=== PATIENT | male | born 1950 | race American Indian/Alaskan Native ===

== ENCOUNTER 2016-08-31 11:35 | Emergency (ER) | payer SELFPAY ==
--- NOTE | 2016-08-31 16:53 | Emergency Department Report ---
- General Chief Complaint: Laceration/Recheck/Suture Stated Complaint: WIRE OUT OF BACK Time Seen by Provider: 08/31/16 16:27 Source: patient Mode of arrival: Ambulatory Limitations: No Limitations - History of Present Illness Initial Comments: Patient presents today after a thoracotomy that was done at [facility] on 06/30/2016. He states he needs to get his sy removed. His discharge paperwork from that visit states that he needs to follow-up with Dr. SORTO in one week and on 07/11/16. Patient admits that he has not followed up with anyone. He states he does not have a PCP. He is noted to have an elevated blood pressure of 182/112 and on Lopressor 25 twice a day. He states he has not been taking it as he ran out of the medication. He denies chest pain, shortness of breath, dizziness, nausea, fever. Associated Symptoms: none - Related Data Previous Rx's Medication Instructions Recorded Last Taken Type Benzonatate [Tessalon Perles] 100 mg PO Q8H #15 capsule 07/05/16 Unknown Rx Famotidine [Pepcid] 20 mg PO BID #60 tablet 07/05/16 Unknown Rx Metoprolol [Lopressor TAB] 25 mg PO BID #60 tablet 07/05/16 Unknown Rx oxyCODONE /ACETAMINOPHEN [Percocet 1 tab PO Q6H PRN #20 tablet 07/05/16 Unknown Rx 5/325 mg] Metoprolol [Lopressor TAB] 25 mg PO BID #30 tablet 08/31/16 Unknown Rx Allergies Allergy/AdvReac Type Severity Reaction Status Date / Time No Known Allergies Allergy Verified 08/31/16 12:25 ED Review of Systems ROS: Stated complaint: WIRE OUT OF BACK Other details as noted in HPI Respiratory: denies: cough, shortness of breath, wheezing Cardiovascular: denies: chest pain, palpitations Gastrointestinal: denies: abdominal pain, nausea, diarrhea Musculoskeletal: denies: back pain, joint swelling, arthralgia Skin: as per HPI Neurological: denies: headache, weakness, paresthesias ED Past Medical Hx - Past Medical History Hx Hypertension: No (possible undiagnosed, patient on HTN med in hospital) Hx Congestive Heart Failure: No Hx Diabetes: No Hx Sickle Cell Disease: No Hx Asthma: No Hx COPD: No Hx HIV: No - Social History Smoking Status: Never Smoker Substance Use Type: Alcohol - Medications Home Medications: Home Medications Medication Instructions Recorded Confirmed Last Taken Type Benzonatate [Tessalon Perles] 100 mg PO Q8H #15 capsule 07/05/16 Unknown Rx Famotidine [Pepcid] 20 mg PO BID #60 tablet 07/05/16 Unknown Rx Metoprolol [Lopressor TAB] 25 mg PO BID #60 tablet 07/05/16 Unknown Rx oxyCODONE /ACETAMINOPHEN [Percocet 1 tab PO Q6H PRN #20 tablet 07/05/16 Unknown Rx 5/325 mg] Metoprolol [Lopressor TAB] 25 mg PO BID #30 tablet 08/31/16 Unknown Rx ED Physical Exam - General Limitations: No Limitations General appearance: alert, in no apparent distress - Eye Eye exam: Present: normal appearance - Respiratory Respiratory exam: Present: normal lung sounds bilaterally. Absent: respiratory distress - Cardiovascular Cardiovascular Exam: Present: regular rate, normal rhythm. Absent: systolic murmur, diastolic murmur, rubs, gallop - Back Exam Back exam: Present: other (left thoracic sy from anterior to posterior, there is no redness, swelling, the wound appears to be healing well.) - Neurological Exam Neurological exam: Present: alert, oriented X3 - Psychiatric Psychiatric exam: Present: normal affect, normal mood - Skin Skin exam: Present: warm, dry, intact, normal color. Absent: rash ED Course Vital Signs 08/31/16 12:18 Temperature 97.7 F Pulse Rate 101 H Respiratory 17 Rate Blood Pressure 182/112 O2 Sat by Pulse 99 Oximetry ED Medical Decision Making - Medical Decision Making Patient presents after a left thoracotomy, he presents to have sy removed. I have spoken to Dr. Hicks about this patient and he states to have the patient follow-up with Dr. Hardin, the surgeon due to him being postop 2 months. I will also refill his metoprolol for 2 weeks until he can get into see a primary care physician. - Differential Diagnosis thoracotomy, wound infection Critical Care Time: No Critical care attestation.: If time is entered above; I have spent that time in minutes in the direct care of this critically ill patient, excluding procedure time. ED Disposition Clinical Impression: History of thoracotomy, Hypertension Disposition: DISCHARGED TO HOME OR SELFCARE Is pt being admited?: No Does the pt Need Aspirin: No Condition: Stable Instructions: Staple Care (ED), Hypertension (ED) Additional Instructions: You must follow-up with Dr. SORTO your wool fleece sorter and Dr. Hardin your surgeon immediately. Dr. SORTO's number is [phone] Dr. Hardin's number is [phone] Prescriptions: Metoprolol [Lopressor TAB] 25 mg PO BID #30 tablet Referrals: PRIMARY CAREMD [Primary Care Provider] - 3-5 Days SANJAY HARDIN MD [Staff Physician] - 3-5 Days [facility] [Outside] - 3-5 Days Time of Disposition: 17:00
[2016-08-31] MEDS ORDERED: LOPRESSOR PO ONE (17:00)
[2016-08-31 18:06] VITALS: BP 190/122
[2016-08-31] MEDS ORDERED: CATAPRES PO ONE (18:32)
[2016-08-31] MEDS ORDERED: NORMODYNE IV ONE (19:29)
--- NOTE | 2016-08-31 19:47 | Emergency Department Report ---
Blank Doc - Documentation Documentation: Spoke with Dr. Hicks about patient's elevated blood pressure, he states to give labetalol 20 IV. I went in the exam room to discuss this with the patient and the patient states he has to leave that he has been here too long. He states he will sign the AMA form. I advised patient that elevated blood pressure can lead to stroke, heart attack, end stage organ failure. He states he understands and has decided to leave AMA anyway.
--- NOTE | 2016-08-31 20:14 | Emergency Department Report ---
Blank Doc - Documentation Documentation: Spoke with Dr. Hicks about this patient and his blood pressure being elevated. Dr. Hicks states to give him his prescription for metoprolol 25 mg twice a day even though he is leaving AMA. I discussed with the patient to follow-up in the ED if he gets any chest pain, dizziness, shortness of breath, nausea, vomiting, facial droop.
== END 2016-08-31 19:45 | disposition left against medical advice (07) ==
LOC: ED 11:35
DX: I10 Essential (primary) hypertension (principal); Z98.890 Other specified postprocedural states
CPT/HCPCS: 99282

== ENCOUNTER 2016-10-10 14:15 | Inpatient (IN) | payer OTHER ==
--- NOTE | 2016-10-10 14:54 | Emergency Department Report ---
Chief Complaint: High BP Stated Complaint: HBP Time Seen by Provider: 10/10/16 14:44 - HPI History of Present Illness: 66-year-old male sent to the ER by [facility] due to elevated heart rate and blood pressure. Positive for history of lung cancer. Patient admits to alcohol intake last night. Denies nausea, vomiting, chest pain, shortness of breath, abdominal pain. - ROS Review of Systems: Per HPI - Exam Vital Signs: Vital Signs 10/10/16 10/10/16 14:33 14:47 Temperature 98.4 F Pulse Rate 150 H 137 H Respiratory 18 Rate Blood Pressure 151/100 O2 Sat by Pulse 100 Oximetry Physical Exam: General: 66-year-old male in no acute distress. Well-developed, well-nourished. CV: Tachycardic. Regular rhythm. Lungs: Clear to auscultation bilaterally. MSE screening note: Focused history and physical exam performed. Due to findings the following was ordered: ED Disposition for MSE Condition: Stable
[2016-10-10 15:43] LABS: Basophils % (Auto) 0.4 % (0.0-1.8); Hematocrit 39.8 % (35.5-45.6); Hemoglobin 12.9 gm/dl (11.8-15.2); Mean Corpuscular HGB Conc 32 % (32-34); Mean Corpuscular Volume 79 fl (84-94); Platelet Count 335 K/mm3 (140-440); Red Blood Count 5.02 M/mm3 (3.65-5.03); Red Cell Distribution Width 17.1 % (13.2-15.2)
[2016-10-10 15:45] LABS: Mean Corpuscular Hemoglobin 26 pg (28-32)
[2016-10-10 15:50] LABS: Anion Gap 22 mmol/L; Blood Urea Nitrogen 10 mg/dL (9-20); Calcium 8.9 mg/dL (8.4-10.2); Carbon Dioxide 24 mmol/L (22-30); Chloride 98.1 mmol/L (98-107); Glucose 131 mg/dL (75-100); Potassium 3.5 mmol/L (3.6-5.0); Sodium 141 mmol/L (137-145)
[2016-10-10 15:52] LABS: Creatine Kinase MB 3.6 ng/mL (0.0-4.0)
[2016-10-10 15:54] LABS: Creatine Kinase 82 units/L (55-170)
[2016-10-10] MEDS ORDERED: CARDIZEM ONE (16:28)
[2016-10-10 17:44] LABS: INR 0.98 (0.87-1.13)
[2016-10-10 17:45] LABS: Partial Thromboplastin Time 25.7 Sec. (24.2-36.6)
[2016-10-10 17:57] LABS: Alanine Aminotransferase 5 units/L (7-56); Albumin 3.8 g/dL (3.9-5); Alkaline Phosphatase 106 units/L (35-129); Bilirubin,Total 0.4 mg/dL (0.1-1.2); Magnesium 1.6 mg/dL (1.7-2.3); Total Protein 7.5 g/dL (6.3-8.2)
[2016-10-10 17:58] LABS: Bilirubin,Direct < 0.2 mg/dL (0-0.2); Bilirubin,Indirect 0.2 mg/dL
[2016-10-10] MEDS ORDERED: LEVAQUIN 750MG/150ML 750 MG/150 ML BAG IV ONE (18:30)
--- NOTE | 2016-10-10 18:56 | Admit Criteria Form ---
Admission Criteria Documentation: PULMONARY DISEASE GRG Clinical Indications for Admission to Inpatient Care ( Place 'X' for any and all applicable criteria): Hospital admission is needed for appropriate care of the patient because of ANY ONE of the following(1): [ ]I. Impending or actual respiratory arrest ( Use Respiratory Failure Criteria for severe respiratory disease and long-term mechanical ventilation patients) (4) [ ]II. Severe airflow or ventilation abnormalities (not responsive to emergency and observation care treatment as appropriate) as indicated by ANY ONE of the following(5)(6)(7)(8) : [ ]a) PCO2 > 42 mm Hg (5.6 kPa) and pH < 7.35 (new) [ ]b) Documented PCO2 increase > 5 mm Hg (0.7 kPa) from disease baseline [ ]c) Airflow measurements[A] < 60% of previous best or predicted ( e.g., PEF <300 L/minute) despite intensive emergent treatment[B] [ ]d) Required respiratory treatments that are performable only in acute inpatient setting [ ]III. Severe respiratory findings (not responsive to emergency and observation care treatment as appropriate) including ANY ONE of the following(5)(8)(9): [ ]a) Respiratory distress as indicated by ALL of the following(5)(10): [ ]i) Patient with ANY ONE of the following: [ ]1) Dyspnea (difficulty breathing) [ ]2) Abnormal breathing pattern (eg, chest retractions) [ ]3) Tachypnea [ ]4) Other evidence of difficulty breathing [ ]ii) Evidence of respiratory compromise indicated by ANY ONE of the following: [ ]1) Hypoxemia [ ]2) Altered mental status [ ]3) Other evidence of respiratory compromise (eg, pulmonary edema on chest x-ray) [ ]b) Stridor [ ]c) Gross hemoptysis(11) [ ]d) Acute cyanosis [ X]IV. High-risk pulmonary infection as indicated by ANY ONE of the following (19)(20)(21)(22): [ ]a) Temperature less than 95 degrees F(35 degrees C) or greater than 103.1 degrees F(39.5 degrees C) [ ]b) Hemodynamic instability that remains after emergency or observation level care (as appropriate) [ ]c) Immunocompromised patient (eg, AIDS, post transplant, neutropenic) [ ]d) History of severe COPD [ ]e) History of severely symptomatic congestive heart failure [ ]f) Other high-risk comorbidity (eg, poorly controlled diabetes, cirrhosis, chronic renal insufficiency) [ ]g) Hypoxemia (new) [ X]h) Outpatient, observation, or recovery facility therapy has failed, is not appropriate, or is not feasible [ ]V. Severe atelectasis or lung collapse(15)(16) [ ]. Tuberculosis requiring inpatient treatment as indicated by ANY ONE of the following(17)(18): [ ]a) New positive acid-fast bacilli sputum smear [ ]b) Positive acid-fast bacilli smear (under current treatment), with ANY ONE of the following: [ ]i) Unexposed household contacts [ ]ii) Infants or immunosuppressed household contacts [ ]iii) Patient unable or unwilling to avoid exposing others [ ]iv) Severe immunocompromised patient (eg, AIDS, post transplant, neutropenic) [ ]VII. Empyema or lung abscess(13)(14) [ ]VIII. Severe pulmonary arterial hypertension or pulmonary vascular disease requiring inpatient care indicated by ANY ONE of the following(24)(25): [ ]a) Initiation or change of vasodilators (IV, subcutaneous, or inhaled) or other vasoactive medications needed [ ]b) IV anticoagulation needed (eg, immediate anticoagulation necessary, alternatives not appropriate) [ ]c) Arterial or pulmonary artery catheter monitoring needed due to infusion or other treatment [ ]IX. Chronic lung disease with severe deterioration (not responsive to emergency and observation care treatment as appropriate) as indicated by ANY ONE of the following (6)(12): [ ]a) SaO2 5% below baseline in patient with chronic hypoxemia [ ]b) New requirement for supplemental oxygen to keep SaO2 at baseline or acceptable level [ ]c) Required supplemental oxygen performable only in acute inpatient setting [ ]d) Severe airflow or ventilation abnormalities [ ]e) Rapid rate of exacerbation onset [ ]f) Previously mobile patient unable to walk between rooms [ ]g) Inability to eat or sleep due to dyspnea [ ]h) Altered mental status [ ]X. Cystic fibrosis with severe deterioration as indicated by ANY ONE of the following(26)(27): [ ]a) Severe exacerbation that does not respond to intensified home therapy [ ]b) Pneumonia [ ]c) Hemoptysis [ ]d) Atelectasis [ ]e) Pneumothorax [ ]f) Respiratory failure [ ]g) Severe exacerbation with patient unable to perform prescribed treatments at home [ ]XI. Severe right heart failure as indicated by ANY ONE of the following(24) (25): [ ]a) Increasing organ failure (eg, liver congestion with significant and worsening or new elevation of transaminases) [ ]b) Anasarca [ ]c) Angina that requires inpatient care (eg, not treatable in emergency or observation level of care) [ ]d) Respiratory distress [ ]e) Syncope [ ]f) SBP < 90 mm Hg (new) [ ]XII. Injury requiring inpatient care (medical) as indicated by ANY ONE of the following(28): [ ]a) Significant inhalation injury (eg, smoke inhalation, other toxic inhalation) (29)(30)(31) [ ]b) Airway obstruction that remains or is unstable after emergency or observation level care(32) [ ]c) Severe pain requiring acute inpatient management [ ]d) Lung contusion [ ]e) Bronchial tree injury [ ]f) Air or fat emboli(33) [ ]g) Other injury not treatable in emergency or observation level care (eg, hemothorax) (34) [ ]XIII. Pulmonary hemorrhage or significant hemoptysis(11)(35)(36) [ ]XIV. Inpatient palliative care needed[C](37)(38)(39)(40) [ ]XV. Complications of lung transplant (eg, rejection, failure, respiratory infection) (23) [ ]XVI. Pulmonary Disease and ANY ONE of the following: [ ]a) General Admission Criteria [ ]b) Pediatric General Admission Criteria The original [facility] [employer] content created by [facility] has been revised. The portions of the content which have been revised are identified through the use of italic text or in bold, and [facility] has neither reviewed nor approved the modified material. All other unmodified content is copyright [facility]. Please see references footnoted in the original [facility] edition 2016 Admission Criteria Met: Yes
--- NOTE | 2016-10-10 20:10 | Emergency Department Report ---
ED General Adult HPI - General Chief complaint: High BP Stated complaint: HBP Time Seen by Provider: 10/10/16 14:44 Source: patient Mode of arrival: Ambulatory Limitations: No Limitations - History of Present Illness Initial comments: The patient was apparently sent to this facility by his radiation oncologist. He is an extremely poor historian himself. He does not know why he is here. He is not aware of his persistent tachycardia. Apparently his radiation oncologist noticed that his heart rate was really quite fast and sent him here for evaluation. I do not have any transfer documents for further elaboration. The patient was apparently pending either his first treatment or evaluation by radiation oncology for treatment of his metastatic lung cancer. He is status post a left thoracotomy he states within the last 6 months. Nor any chest pain. He does not complain of shortness of breath nor leg pain or calf swelling. He's had no recent travel. He denies fever or chills. -: unknown Severity scale (0 -10): 0 Associated Symptoms: denies other symptoms - Related Data Previous Rx's Medication Instructions Recorded Last Taken Type Benzonatate [Tessalon Perles] 100 mg PO Q8H #15 capsule 07/05/16 Unknown Rx Famotidine [Pepcid] 20 mg PO BID #60 tablet 07/05/16 Unknown Rx Metoprolol [Lopressor TAB] 25 mg PO BID #60 tablet 07/05/16 Unknown Rx oxyCODONE /ACETAMINOPHEN [Percocet 1 tab PO Q6H PRN #20 tablet 07/05/16 Unknown Rx 5/325 mg] Metoprolol [Lopressor TAB] 25 mg PO BID #30 tablet 08/31/16 Unknown Rx Allergies Allergy/AdvReac Type Severity Reaction Status Date / Time No Known Allergies Allergy Verified 08/31/16 12:25 ED Review of Systems ROS: Stated complaint: HBP Other details as noted in HPI Comment: All other systems reviewed and negative (patient claims to be asymptomatic. He was unaware of his tachycardia. He did not appreciate palpitations.) Constitutional: denies: chills, fever Eyes: denies: eye pain, eye discharge, vision change ENT: denies: ear pain, throat pain Respiratory: denies: cough, shortness of breath, wheezing Cardiovascular: denies: chest pain, palpitations Endocrine: no symptoms reported Gastrointestinal: denies: abdominal pain, nausea, diarrhea Genitourinary: denies: urgency, dysuria Musculoskeletal: denies: back pain, joint swelling, arthralgia Skin: denies: rash, lesions Neurological: denies: headache, weakness, paresthesias Psychiatric: denies: anxiety, depression Hematological/Lymphatic: denies: easy bleeding, easy bruising ED Past Medical Hx - Past Medical History Hx Hypertension: No (possible undiagnosed, patient on HTN med in hospital) Hx Congestive Heart Failure: No Hx Diabetes: No Hx Sickle Cell Disease: No Hx Asthma: No Hx COPD: No Hx HIV: No - Surgical History Additional Surgical History: left lung CA-2015 - Social History Smoking Status: Former Smoker Substance Use Type: Alcohol - Medications Home Medications: Home Medications Medication Instructions Recorded Confirmed Last Taken Type Benzonatate [Tessalon Perles] 100 mg PO Q8H #15 capsule 07/05/16 Unknown Rx Famotidine [Pepcid] 20 mg PO BID #60 tablet 07/05/16 Unknown Rx Metoprolol [Lopressor TAB] 25 mg PO BID #60 tablet 07/05/16 Unknown Rx oxyCODONE /ACETAMINOPHEN [Percocet 1 tab PO Q6H PRN #20 tablet 07/05/16 Unknown Rx 5/325 mg] Metoprolol [Lopressor TAB] 25 mg PO BID #30 tablet 08/31/16 Unknown Rx ED Physical Exam - General Limitations: No Limitations General appearance: alert, in no apparent distress - Head Head exam: Present: atraumatic, normocephalic - Eye Eye exam: Present: normal appearance, PERRL, EOMI. Absent: scleral icterus - ENT ENT exam: Present: normal exam, mucous membranes moist - Neck Neck exam: Present: normal inspection - Respiratory Respiratory exam: Present: rhonchi (rhonchi in left lung posteriorly). Absent: respiratory distress, accessory muscle use - Cardiovascular Cardiovascular Exam: Present: regular rate, tachycardia (tachycardia between 135 /150). Absent: systolic murmur, diastolic murmur, rubs, gallop - GI/Abdominal GI/Abdominal exam: Present: soft, normal bowel sounds. Absent: distended, tenderness, guarding, rebound, rigid - Rectal Rectal exam: Present: deferred - Extremities Exam Extremities exam: Present: normal inspection - Back Exam Back exam: Present: normal inspection - Neurological Exam Neurological exam: Present: alert, oriented X3, CN II-XII intact. Absent: motor sensory deficit - Psychiatric Psychiatric exam: Present: normal affect, normal mood - Skin Skin exam: Present: warm, dry, intact, normal color. Absent: rash ED Course Vital Signs 10/10/16 10/10/16 10/10/16 14:33 14:47 16:49 Temperature 98.4 F Pulse Rate 150 H 137 H 142 H Respiratory 18 24 Rate Blood Pressure 151/100 Blood Pressure 140/111 [Left] O2 Sat by Pulse 100 98 Oximetry 10/10/16 10/10/16 10/10/16 17:54 18:28 18:30 Temperature Pulse Rate 86 84 Respiratory 24 13 14 Rate Blood Pressure 150/101 Blood Pressure [Left] O2 Sat by Pulse 98 99 98 Oximetry 10/10/16 10/10/16 18:40 18:50 Temperature Pulse Rate 87 87 Respiratory 12 12 Rate Blood Pressure 150/101 150/101 Blood Pressure [Left] O2 Sat by Pulse 99 99 Oximetry - Reevaluation(s) Reevaluation #1: An IV was initiated. The patient was given a single dose of adenosine 6 mg IV. This terminated his seizure ventricular tachycardia. A post cardioversion EKG showed evidence of left axis deviation PVCs and essentially normal repolarization. Possibility of old inferior infarct could not be completely excluded. However it looks more like left axis to me. His previous EKG showed SVT at 137. No recurrence. The patient was reported to the hospitalist on-call, Dr. Sam. He requested that I place bridging orders. I will do so. The patient's chest x-ray showed infiltrates and what appears to be left lower lobe. He has been covered with Levaquin. Dr. Sam is aware. I think there is a possibility that this patient is a heavy drinker. I will put in a when necessary order for Ativan. There's he has not reported any withdrawal type symptoms as of yet. 10/10/16 20:08 10/10/16 20:10 10/10/16 20:10 ED Medical Decision Making - Lab Data Result diagrams: 10/10/16 15:11 10/10/16 15:11 Laboratory Results - last 24 hr 10/10/16 10/10/16 10/10/16 15:11 15:11 15:11 WBC 10.0 RBC 5.02 Hgb 12.9 Hct 39.8 MCV 79 L MCH 26 L MCHC 32 RDW 17.1 H Plt Count 335 Lymph % (Auto) 23.0 [place] % (Auto) 10.9 H Eos % (Auto) 2.0 Baso % (Auto) 0.4 Lymph # 2.3 [place] # 1.1 H Eos # 0.2 Baso # 0.0 Seg Neutrophils % 63.7 Seg Neutrophils # 6.3 PT INR APTT Sodium 141 Potassium 3.5 L Chloride 98.1 Carbon Dioxide 24 Anion Gap 22 BUN 10 Creatinine 0.5 L Estimated GFR > 60 BUN/Creatinine Ratio 20.00 Glucose 131 H Lactic Acid 1.7 Calcium 8.9 Magnesium Total Bilirubin Direct Bilirubin Indirect Bilirubin AST ALT Alkaline Phosphatase Total Creatine Kinase CK-MB (CK-2) CK-MB (CK-2) Rel Index Troponin T NT-Pro-B Natriuret Pep Total Protein Albumin Albumin/Globulin Ratio TSH Free T4 10/10/16 10/10/16 10/10/16 15:11 17:04 17:04 WBC RBC Hgb Hct MCV MCH MCHC RDW Plt Count Lymph % (Auto) [place] % (Auto) Eos % (Auto) Baso % (Auto) Lymph # [place] # Eos # Baso # Seg Neutrophils % Seg Neutrophils # PT 12.9 INR 0.98 APTT 25.7 Sodium Potassium Chloride Carbon Dioxide Anion Gap BUN Creatinine Estimated GFR BUN/Creatinine Ratio Glucose Lactic Acid Calcium Magnesium 1.6 L Total Bilirubin 0.4 Direct Bilirubin < 0.2 Indirect Bilirubin 0.2 AST 9 ALT 5 L Alkaline Phosphatase 106 Total Creatine Kinase 82 CK-MB (CK-2) 3.6 CK-MB (CK-2) Rel Index 4.3 H Troponin T < 0.010 NT-Pro-B Natriuret Pep 806.8 Total Protein 7.5 Albumin 3.8 L Albumin/Globulin Ratio 1.0 TSH Free T4 10/10/16 10/10/16 10/10/16 17:04 17:18 17:18 WBC RBC Hgb Hct MCV MCH MCHC RDW Plt Count Lymph % (Auto) [place] % (Auto) Eos % (Auto) Baso % (Auto) Lymph # [place] # Eos # Baso # Seg Neutrophils % Seg Neutrophils # PT INR APTT Sodium Potassium Chloride Carbon Dioxide Anion Gap BUN Creatinine Estimated GFR BUN/Creatinine Ratio Glucose Lactic Acid 1.2 Calcium Magnesium Total Bilirubin Direct Bilirubin Indirect Bilirubin AST ALT Alkaline Phosphatase Total Creatine Kinase CK-MB (CK-2) CK-MB (CK-2) Rel Index Troponin T < 0.010 NT-Pro-B Natriuret Pep Total Protein Albumin Albumin/Globulin Ratio TSH 1.560 Free T4 1.30 - EKG Data -: EKG Interpreted by Me (above described with SVT and cardioversion.) - Radiology Data interpreted by me: Left lower lobe infiltrate possibly lymphangitic tumor pneumonia could not be excluded. Critical care attestation.: If time is entered above; I have spent that time in minutes in the direct care of this critically ill patient, excluding procedure time. ED Disposition Clinical Impression: S/P thoracotomy Non-small cell lung cancer (NSCLC) Qualifiers: Laterality: left Qualified Code(s): C34.92 - Malignant neoplasm of unspecified part of left bronchus or lung Left lower lobe pneumonia Qualifiers: Pneumonia type: due to unspecified organism Qualified Code(s): J18.9 - Pneumonia, unspecified organism Disposition: OP ADMITTED IP TO THIS HOSP Is pt being admited?: Yes Does the pt Need Aspirin: Yes Condition: Stable Instructions: Bacterial Pneumonia (ED) Referrals: PRIMARY CARE, [Primary Care Provider] - 3-5 Days Time of Disposition: 20:18
[2016-10-10] MEDS ORDERED: ASPIRIN PO ONE (20:19)
[2016-10-10] MEDS ORDERED: ATIVAN PO PRN (22:11)
[2016-10-10] MEDS ORDERED: PERCOCET 5/325 PO PRN (22:40)
--- NOTE | 2016-10-10 22:40 | Event Note ---
Date: 10/10/16 See H/p in reports SVT -Resolved Pneumonia -doubtful Lung Ca-to follow with Radiation oncology and Oncology COPD HTN Gerd
[2016-10-10] MEDS ORDERED: DUONEB 0.5 MG-3 MG/3 ML SOLN IH PRN (22:48)
[2016-10-10] MEDS: DUONEB 0.5 MG-3 MG/3 ML SOLN IH SCH (23:00)
[2016-10-10] MEDS ORDERED: PROVENTIL IH PRN (23:46)
[2016-10-11] MEDS: DUONEB 0.5 MG-3 MG/3 ML SOLN IH SCH ×4 (01:53→19:42)
[2016-10-11] MEDS: PEPCID PO SCH ×3 (02:08→21:21)
[2016-10-11] MEDS: TESSALON PERLES PO SCH ×3 (02:08→17:43)
[2016-10-11] MEDS: LOPRESSOR PO SCH ×3 (02:09→21:21)
[2016-10-11 08:10] LABS: Anion Gap 20 mmol/L; Blood Urea Nitrogen 9 mg/dL (9-20); Calcium 9.4 mg/dL (8.4-10.2); Carbon Dioxide 26 mmol/L (22-30); Chloride 97.6 mmol/L (98-107); Glucose 164 mg/dL (75-100); Potassium 3.7 mmol/L (3.6-5.0); Sodium 140 mmol/L (137-145)
[2016-10-11] MEDS ORDERED: MAGNESIUM SULFATE 2GM/50ML 2 GM/50 ML BAG IV ONE (08:30)
--- NOTE | 2016-10-11 09:11 | XRay Report ---
AP CHEST: HISTORY: Hypertension, lung cancer. FINDINGS: Compared to 07/05/16. The large left pleural effusion has nearly resolved since the previous exam. There is either a small remaining left pleural effusion versus focal left pleural thickening on today's exam. Opacity overlies the left cardiac border. This may be related to left lung surgery although I cannot entirely exclude an infiltrate or residual mass. The left upper lung and right lung are clear. Heart size is within normal limits. Normal pulmonary vascularity. IMPRESSION: Left lung findings, as outlined above, which are probably related to surgery. Please correlate with the patient. Overall, there is improvement since 07/05/16.
[2016-10-11] MEDS: CARDIZEM PO SCH ×2 (09:19→21:21)
[2016-10-11] MEDS: LOVENOX SUB-Q SCH (09:20)
--- NOTE | 2016-10-11 09:23 | Progress Note ---
History Interval history: patient sent in from radiation therapy for tachycardia, palpitations, Found to have SVT, given Adenosine Hospitalist Physical - Constitutional Vitals: Temp Pulse Resp BP Pulse Ox 97.7 F 96 H 16 173/105 98 10/11/16 06:22 10/11/16 09:20 10/11/16 07:22 10/11/16 09:20 10/11/16 06:22 Results - Labs CBC & Chem 7: 10/10/16 15:11 10/11/16 07:32 Labs: Laboratory Last Values WBC 10.0 K/mm3 (4.5-11.0) 10/10/16 15:11 RBC 5.02 M/mm3 (3.65-5.03) 10/10/16 15:11 Hgb 12.9 gm/dl (11.8-15.2) 10/10/16 15:11 Hct 39.8 % (35.5-45.6) 10/10/16 15:11 MCV 79 fl (84-94) L 10/10/16 15:11 MCH 26 pg (28-32) L 10/10/16 15:11 MCHC 32 % (32-34) 10/10/16 15:11 RDW 17.1 % (13.2-15.2) H 10/10/16 15:11 Plt Count 335 K/mm3 (140-440) 10/10/16 15:11 Lymph % (Auto) 23.0 % (13.4-35.0) 10/10/16 15:11 [place] % (Auto) 10.9 % (0.0-7.3) H 10/10/16 15:11 Eos % (Auto) 2.0 % (0.0-4.3) 10/10/16 15:11 Baso % (Auto) 0.4 % (0.0-1.8) 10/10/16 15:11 Lymph # 2.3 K/mm3 (1.2-5.4) 10/10/16 15:11 [place] # 1.1 K/mm3 (0.0-0.8) H 10/10/16 15:11 Eos # 0.2 K/mm3 (0.0-0.4) 10/10/16 15:11 Baso # 0.0 K/mm3 (0.0-0.1) 10/10/16 15:11 Seg Neutrophils % 63.7 % (40.0-70.0) 10/10/16 15:11 Seg Neutrophils # 6.3 K/mm3 (1.8-7.7) 10/10/16 15:11 PT 12.9 Sec. (12.2-14.9) 10/10/16 17:04 INR 0.98 (0.87-1.13) 10/10/16 17:04 APTT 25.7 Sec. (24.2-36.6) 10/10/16 17:04 Sodium 140 mmol/L (137-145) 10/11/16 07:32 Potassium 3.7 mmol/L (3.6-5.0) 10/11/16 07:32 Chloride 97.6 mmol/L (98-107) L 10/11/16 07:32 Carbon Dioxide 26 mmol/L (22-30) 10/11/16 07:32 Anion Gap 20 mmol/L 10/11/16 07:32 BUN 9 mg/dL (9-20) 10/11/16 07:32 Creatinine 0.4 mg/dL (0.8-1.5) L 10/11/16 07:32 Estimated GFR > 60 ml/min 10/11/16 07:32 BUN/Creatinine Ratio 22.50 % 10/11/16 07:32 Glucose 164 mg/dL (75-100) H 10/11/16 07:32 Lactic Acid 1.2 mmol/L (0.7-2.0) 10/10/16 17:04 Calcium 9.4 mg/dL (8.4-10.2) 10/11/16 07:32 Magnesium 1.6 mg/dL (1.7-2.3) L 10/10/16 17:04 Total Bilirubin 0.4 mg/dL (0.1-1.2) 10/10/16 17:04 Direct Bilirubin < 0.2 mg/dL (0-0.2) 10/10/16 17:04 Indirect Bilirubin 0.2 mg/dL 10/10/16 17:04 AST 9 units/L (5-40) 10/10/16 17:04 ALT 5 units/L (7-56) L 10/10/16 17:04 Alkaline Phosphatase 106 units/L (35-129) 10/10/16 17:04 Total Creatine Kinase 82 units/L (55-170) 10/10/16 15:11 CK-MB (CK-2) 3.6 ng/mL (0.0-4.0) 10/10/16 15:11 CK-MB (CK-2) Rel Index 4.3 (0-4) H 10/10/16 15:11 Troponin T < 0.010 ng/mL (0.00-0.029) 10/10/16 20:52 NT-Pro-B Natriuret Pep 806.8 pg/mL (0-900) 10/10/16 17:04 Total Protein 7.5 g/dL (6.3-8.2) 10/10/16 17:04 Albumin 3.8 g/dL (3.9-5) L 10/10/16 17:04 Albumin/Globulin Ratio 1.0 % 10/10/16 17:04 TSH 1.560 mlU/mL (0.270-4.200) 10/10/16 17:18 Free T4 1.30 ng/dL (0.76-1.46) 10/10/16 17:18
--- NOTE | 2016-10-11 10:52 | Consultation ---
History of Present Illness Consult date: 10/11/16 Consult reason: tachycardia History of present illness: Patient with history of lung cancer undergoing radiation therapy. Admitted with narrow complex SVT. Patient admits alcohol binging the night before. His past medical history is pertinent for hypertension. He denies cocaine use. Past History Past Medical History: hypertension, other (Lung cancer) Past Surgical History: No surgical history Social history: smoking Family history: no significant family history Medications and Allergies Allergies Allergy/AdvReac Type Severity Reaction Status Date / Time No Known Allergies Allergy Verified 08/31/16 12:25 Home Medications Medication Instructions Recorded Confirmed Last Taken Type Benzonatate [Tessalon Perles] 100 mg PO Q8H #15 capsule 07/05/16 Unknown Rx Famotidine [Pepcid] 20 mg PO BID #60 tablet 07/05/16 Unknown Rx Metoprolol [Lopressor TAB] 25 mg PO BID #60 tablet 07/05/16 Unknown Rx oxyCODONE /ACETAMINOPHEN [Percocet 1 tab PO Q6H PRN #20 tablet 07/05/16 Unknown Rx 5/325 mg] Metoprolol [Lopressor TAB] 25 mg PO BID #30 tablet 08/31/16 Unknown Rx Active Meds: Active Medications Albuterol (Proventil) 2.5 mg IH Q3HRT PRN PRN Reason: Shortness Of Breath Albuterol/Ipratropium (Duoneb 0.5 Mg-3 Mg/3 Ml Soln) 1 ampul IH Q6HRT [facility] Last Admin: 10/11/16 07:06 Dose: 1 ampul Benzonatate (Tessalon Perles) 100 mg PO Q8H [facility] Last Admin: 10/11/16 09:18 Dose: 100 mg Diltiazem HCl (Cardizem) 60 mg PO Q12HR [facility] Last Admin: 10/11/16 09:19 Dose: 60 mg Enoxaparin Sodium (Lovenox) 40 mg SUB-Q QDAY [facility] Last Admin: 10/11/16 09:20 Dose: 40 mg Famotidine (Pepcid) 20 mg PO BID [facility] Last Admin: 10/11/16 09:18 Dose: 20 mg Lorazepam (Ativan) 1 mg PO Q12H PRN PRN Reason: Alcohol Withdrawal Methylprednisolone Sodium Succinate (Solu-Medrol) 40 mg IV Q8H [facility] Last Admin: 10/11/16 09:19 Dose: 40 mg Metoprolol Tartrate (Lopressor) 25 mg PO BID [facility] Last Admin: 10/11/16 09:20 Dose: 25 mg Oxycodone/Acetaminophen (Percocet 5/325) 1 tab PO Q6H PRN PRN Reason: Pain, Moderate (4-6) Review of Systems All systems: negative Physical Examination Vital Signs Temp Pulse Resp BP Pulse Ox 98.4 F 150 H 18 151/100 100 10/10/16 14:33 10/10/16 14:33 10/10/16 14:33 10/10/16 14:33 10/10/16 14:33 General appearance: no acute distress HEENT: Positive: PERRL Neck: Positive: neck supple Cardiac: Positive: Reg Rate and Rhythm Lungs: Positive: Normal Exam Neuro: Positive: Grossly Intact Abdomen: Positive: Soft Extremities: Present: normal Results 10/10/16 15:11 10/11/16 07:32 Comprehensive Metabolic Panel 10/11/16 Range/Units 07:32 Sodium 140 (137-145) mmol/L Potassium 3.7 (3.6-5.0) mmol/L Chloride 97.6 L (98-107) mmol/L Carbon Dioxide 26 (22-30) mmol/L BUN 9 (9-20) mg/dL Creatinine 0.4 L (0.8-1.5) mg/dL Glucose 164 H (75-100) mg/dL Calcium 9.4 (8.4-10.2) mg/dL - EKG Interpretation EKG: sinus rhythm Assessment and Plan Narrow complex tachycardia terminated with adenosine SVT induced by alcohol binging Systemic Hypertension Lung cancer undergoing chemotherapy Recommendations: Continue metoprolol po Alcohol abstinence No need for further cardiac work-up Follow-up as outpatient
--- NOTE | 2016-10-11 21:14 | History and Physical Report ---
CHIEF COMPLAINT: 1. Palpitations. 2. Shortness of breath. HISTORY OF PRESENT ILLNESS: A 66-year-old male with history of lung CA, on radiation therapy, sent in by radiation oncologist for severe tachycardia and some shortness of breath. The patient was going to radiation oncology for radiation treatment for the treatment of his metastatic lung cancer. The patient is status post left thoracotomy with a lobectomy in the past 6 months. No chest pain. Some shortness of breath present. No calf swelling or leg swelling. No recent travel. No fever. No chills. PAST MEDICAL HISTORY: Significant for lung cancer, hypertension, chronic pain, gastroesophageal reflux disease. CURRENT MEDICATIONS: Metoprolol 25 mg twice a day, Pepcid 20 mg twice a day, Percocet 5/325 q. 6 p.r.n., Tessalon Perles 100 mg p.o. q. 8. ALLERGIES: No known allergies. PAST SURGICAL HISTORY: Left lung CA in 2014 with lobectomy recently. SOCIAL HISTORY: Used to smoke a pack a day. Alcohol occasionally. FAMILY HISTORY: Significant for hypertension. REVIEW OF SYSTEMS: CONSTITUTIONAL: No weight loss, no weight gain, no fever, no chills. HEENT: No sore throat, no postnasal drip. CHEST AND LUNGS: Scattered rales, left infrascapular and region. CARDIOVASCULAR: No chest pain, no palpitations. GASTROINTESTINAL: No nausea, no vomiting. MUSCULOSKELETAL: No joint pains, no muscle spasms. CENTRAL NERVOUS SYSTEM: No syncope, no seizures. A 14-point review of systems done, essentially negative. PHYSICAL EXAMINATION: GENERAL: Elderly male, cooperative during examination. VITAL SIGNS: Temperature is 98.4, pulse is 150, respirations are 18, blood pressure is 151/100. HEENT: Unremarkable. Pupils equal and reactive. NECK: Supple, no lymphadenopathy, no thyromegaly. LUNGS: Clear to auscultation and percussion. Good air entry. CARDIOVASCULAR: S1, S2 heard. No gallop, no murmur, no rub. Apical impulse in left fifth intercostal space and midclavicular line. ABDOMEN: Soft and benign. No hepatosplenomegaly. No guarding, no rigidity. Hernial orifices are normal. EXTREMITIES: Good pedal pulses. No pedal edema. CENTRAL NERVOUS SYSTEM: Alert and oriented x 4. Nonfocal exam. SKIN: Normal. LABORATORY DATA AND IMAGING STUDIES: Chest x-ray shows left lung findings secondary to lobectomy. Questionable small left pleural effusion versus focal left pleural thickening. the left cardiac border. Possibility of an infiltrate present. Labs significant for white count of 10,000, H and H is 12.9 and 39.8, platelet count is 335,000. Sodium is 141, potassium is 3.5, chloride is 98, bicarbonate is 24, BUN and creatinine is 10 and 0.5, glucose is . Lactic acid is 1.7, calcium is 8.9, creatinine is 0.5. Total CK is 82, CK-MB is 3.6, CK-MB index is 4.3. Troponin is less than 0.010. BNP is 806.8. Total protein is 7.5, albumin is 3.8. TSH is 1.56, free T4 is 1.3. ASSESSMENT AND PLAN: 1. Left lower lobe pneumonia. The patient started on IV Levaquin 750 q. 12-24. 2. Chronic obstructive pulmonary disease exacerbation. The patient started on DuoNeb and Solu-Medrol 40 mg q. 8 hours, and IV Levaquin to continue. 3. Hypertension. Continue metoprolol 25 mg q. 12. 4. Gastroesophageal reflux disease. Continue famotidine 20 mg twice a day. 5. Lung carcinoma. The patient on XRT, Oncology consult to be requested. 6. Supraventricular tachycardia , resolved. The patient was given adenosine in the ER, which resolved. Cardiology consult for the SVT. 7. Deep venous thrombosis prophylaxis, Lovenox 40 mg subcutaneous daily. JOB# [id number] [facility]/NTS
[2016-10-11] MEDS: APRESOLINE IV PRN (21:20)
[2016-10-12] MEDS: TESSALON PERLES PO SCH ×2 (00:37→09:57)
[2016-10-12] MEDS: APRESOLINE IV PRN (01:12)
[2016-10-12] MEDS: DUONEB 0.5 MG-3 MG/3 ML SOLN IH SCH ×2 (01:32→08:37)
[2016-10-12 05:46] LABS: Anion Gap 21 mmol/L; Blood Urea Nitrogen 12 mg/dL (9-20); Carbon Dioxide 23 mmol/L (22-30); Chloride 96.8 mmol/L (98-107); Glucose 172 mg/dL (75-100); Potassium 3.7 mmol/L (3.6-5.0); Sodium 137 mmol/L (137-145)
[2016-10-12] MEDS ORDERED: APRESOLINE PO SCH (08:00)
[2016-10-12] MEDS: LOPRESSOR PO SCH (09:51)
[2016-10-12] MEDS: CARDIZEM PO SCH (09:51)
[2016-10-12] MEDS: PEPCID PO SCH (09:52)
[2016-10-12] MEDS: LOVENOX SUB-Q SCH (09:52)
--- NOTE | 2016-10-12 10:13 | Discharge Summary ---
Providers - Providers Date of Admission: 10/10/16 22:02 Date of discharge: 10/12/16 Attending physician: EMILEE MONTES 10/11/16 09:21 Consult to Physician [CONS] Routine Consulting Provider: CATALINA PENN Reason For Exam: SVT Place consult to:: Dr. Penn Notified:: [email or web address] Was contact made?: Yes Time called:: 10:11 Primary care physician: [employer] Hospitalization Condition: Stable Disposition: STILL A PATIENT - Discharge Diagnoses (1) Non-small cell lung cancer (NSCLC) Status: Acute Qualifiers: Laterality: left Qualified Code(s): C34.92 - Malignant neoplasm of unspecified part of left bronchus or lung (2) SVT (supraventricular tachycardia) Status: Acute (3) Uncontrolled hypertension Status: Acute Core Measure Documentation - Palliative Care Palliative Care/ Comfort Measures: Not Applicable - Core Measures Any of the following diagnoses?: none Exam - Constitutional Vitals: Temp Pulse Resp BP Pulse Ox 98.4 F 97 H 20 167/94 98 10/12/16 08:08 10/12/16 09:51 10/12/16 08:45 10/12/16 09:51 10/12/16 08:08 Plan Activity: advance as tolerated Diet: low fat, low cholesterol, low salt Additional Instructions: 1.Follow up with PCP in 1 week. 2.Follow up with Dr. Penn in 1 week. Follow up with: PRIMARY CAREMD [Primary Care Provider] - 3-5 Days Prescriptions: Hydralazine HCl [Apresoline TAB] 50 mg PO Q8HR #90 tab Metoprolol [Lopressor TAB] 50 mg PO BID #60 tablet
--- NOTE | 2016-10-12 10:23 | Progress Note ---
Assessment and Plan Narrow complex tachycardia terminated with adenosine SVT induced by alcohol binging Hypertension Lung cancer Recommendations: Continue metoprolol po Alcohol abstinence No need for further cardiac work-up Follow-up as outpatient in 1-2 weeks. Subjective Date of service: 10/12/16 Interval history: Patient denies palpitations. No events on telemetry overnight. Objective Vital Signs Temp Pulse Pulse Pulse Resp Resp BP 10/12/16 09:51 97 H 167/94 10/12/16 09:49 97 H 167/94 10/12/16 08:45 99 H 20 10/12/16 08:37 96 H 20 10/12/16 08:08 98.4 F 97 H 18 10/12/16 04:46 97.9 F 99 H 18 10/12/16 01:12 171/91 10/12/16 00:59 100 H 10/12/16 00:42 97.7 F 88 20 10/11/16 21:24 115 H 20 10/11/16 21:21 104 H 176/102 10/11/16 21:20 104 H 176/102 10/11/16 20:18 98.0 F 104 H 22 10/11/16 19:43 91 H 20 10/11/16 16:55 98.2 F 88 18 10/11/16 14:15 90 16 10/11/16 14:00 88 16 10/11/16 11:00 90 BP Pulse Ox 10/12/16 09:51 10/12/16 09:49 10/12/16 08:45 10/12/16 08:37 10/12/16 08:08 167/94 98 10/12/16 04:46 160/80 99 10/12/16 01:12 10/12/16 00:59 10/12/16 00:42 171/91 98 10/11/16 21:24 98 10/11/16 21:21 10/11/16 21:20 10/11/16 20:18 176/102 98 10/11/16 19:43 10/11/16 16:55 170/92 97 10/11/16 14:15 10/11/16 14:00 10/11/16 11:00 - Physical Examination General: No Apparent Distress HEENT: Positive: PERRL Neck: Positive: neck supple Cardiac: Positive: Reg Rate and Rhythm Lungs: Positive: Decreased Breath Sounds Neuro: Positive: Grossly Intact Extremities: Present: normal - Labs and Meds Comprehensive Metabolic Panel 10/12/16 Range/Units 04:37 Sodium 137 (137-145) mmol/L Potassium 3.7 (3.6-5.0) mmol/L Chloride 96.8 L (98-107) mmol/L Carbon Dioxide 23 (22-30) mmol/L BUN 12 (9-20) mg/dL Creatinine 0.4 L (0.8-1.5) mg/dL Glucose 172 H (75-100) mg/dL Calcium 9.0 (8.4-10.2) mg/dL
[2016-10-12 12:15] VITALS: BP 152/95
== END 2016-10-12 12:26 | disposition home or self-care (01) | DRG 308 ==
LOC: ED 14:15 → 4A 22:02
PROVIDERS: ADMIT Internal Medicine; ATTEND Internal Medicine
DX: I47.1 Supraventricular tachycardia (principal); J18.9 Pneumonia, unspecified organism; J44.1 Chronic obstructive pulmonary disease with (acute) exacerbation; J44.0 Chronic obstructive pulmonary disease with (acute) lower respiratory infection; C34.90 Malignant neoplasm of unspecified part of unspecified bronchus or lung; Z85.118 Personal history of other malignant neoplasm of bronchus and lung; Z93.8 Other artificial opening status; Z92.3 Personal history of irradiation; G89.29 Other chronic pain; K21.9 Gastro-esophageal reflux disease without esophagitis; Z90.2 Acquired absence of lung [part of]; F17.210 Nicotine dependence, cigarettes, uncomplicated; Z82.49 Family history of ischemic heart disease and other diseases of the circulatory system
CPT/HCPCS: 36415; 71010; 80048; 80074; 82140; 82550; 82553; 83735; 83880; 84439; 84443; 84484; 85025; 85610; 85730; 87040; 93005; 93010; 94640; 96365; 96366; 96375; J0153; J0360; J1650; J1956; J2920; J3475

== ENCOUNTER 2016-10-30 11:38 | Outpatient (CLI) | payer SELFPAY ==
[2016-10-30 11:47] LABS: ALKFISH SCANNED INTO MED REC
[2016-10-30 11:48] LABS: Epidermal Growth Factor Recept SCANNED INTO MED REC
== END 2016-10-30 11:39 | disposition home or self-care (01) ==
LOC: LABHHL 11:38
DX: C34.32 Malignant neoplasm of lower lobe, left bronchus or lung (principal)
CPT/HCPCS: 36415; 81235; 88271; 88275; 88291

== ENCOUNTER 2017-06-27 09:50 | Emergency (ER) | payer OTHER ==
[2017-06-27 16:57] LABS: Basophils % (Auto) 0.4 % (0.0-1.8); Eosinophils % (Auto) 1.8 % (0.0-4.3); Hematocrit 35.3 % (35.5-45.6); Hemoglobin 11.5 gm/dl (11.8-15.2); Mean Corpuscular HGB Conc 33 % (32-34); Mean Corpuscular Hemoglobin 28 pg (28-32); Mean Corpuscular Volume 86 fl (84-94); Platelet Count 462 K/mm3 (140-440); Red Blood Count 4.11 M/mm3 (3.65-5.03); Red Cell Distribution Width 15.8 % (13.2-15.2); White Blood Count 7.2 K/mm3 (4.5-11.0)
[2017-06-27 17:16] LABS: Alanine Aminotransferase 19 units/L (7-56); Albumin 3.8 g/dL (3.9-5); Albumin/Globulin Ratio 1.3 %; Alkaline Phosphatase 190 units/L (35-129); Anion Gap 20 mmol/L; BUN/Creatinine Ratio 57; Blood Urea Nitrogen 34 mg/dL (9-20); Calcium 9.1 mg/dL (8.4-10.2); Carbon Dioxide 25 mmol/L (22-30); Chloride 96.7 mmol/L (98-107); Glucose 84 mg/dL (75-100); Lipase 21 units/L (13-60); Potassium 4.1 mmol/L (3.6-5.0); Sodium 138 mmol/L (137-145); Total Protein 6.8 g/dL (6.3-8.2)
--- NOTE | 2017-06-27 17:24 | Emergency Department Report ---
ED Back Pain/Injury HPI - General Chief Complaint: Back Pain/Injury Stated Complaint: PAIN IN BACK Time Seen by Provider: 06/27/17 17:04 Source: patient Mode of arrival: Ambulatory Limitations: No Limitations - History of Present Illness Complaint: back pain, other (Patient with XRT in September for lung Cancer. Reports on and off back pain for the last 3 months. Sees his oncologist next Sunday. Does not have any new Sx. No injury or falls. No bladder or bowel incontinence.) -: month(s) (3) Similar Symptoms Previously: Yes Place: home Radiation: none Severity: moderate Quality: sharp, aching Consistency: constant, intermittent Improves With: medication (Has gotten oxycodone in the past for the back but last time per [employer] was April.) Worsens With: movement Context: turning/twisting Associated Symptoms: denies other symptoms - Related Data Previous Rx's Medication Instructions Recorded Last Taken Type Benzonatate [Tessalon Perles] 100 mg PO Q8H #15 capsule 07/05/16 Unknown Rx Famotidine [Pepcid] 20 mg PO BID #60 tablet 07/05/16 Unknown Rx oxyCODONE /ACETAMINOPHEN [Percocet 1 tab PO Q6H PRN #20 tablet 07/05/16 Unknown Rx 5/325 mg] Hydralazine HCl [Apresoline TAB] 50 mg PO Q8HR #90 tab 10/12/16 Unknown Rx Metoprolol [Lopressor TAB] 50 mg PO BID #60 tablet 10/12/16 Unknown Rx Cyclobenzaprine [Flexeril] 10 mg PO TID PRN #30 tablet 06/27/17 Unknown Rx Lisinopril 20 mg PO DAILY #30 tablet 06/27/17 Unknown Rx Oxycodone HCl/Acetaminophen 1 each PO Q6HR PRN #16 tablet 06/27/17 Unknown Rx [Percocet 10/325 mg] Allergies Allergy/AdvReac Type Severity Reaction Status Date / Time No Known Allergies Allergy Verified 06/27/17 09:54 ED Review of Systems ROS: Stated complaint: PAIN IN BACK Other details as noted in HPI Constitutional: denies: chills, fever Eyes: denies: eye pain, eye discharge, vision change ENT: denies: ear pain, throat pain Respiratory: denies: cough, shortness of breath, wheezing Cardiovascular: denies: chest pain, palpitations Endocrine: no symptoms reported Gastrointestinal: denies: abdominal pain, nausea, diarrhea Genitourinary: denies: urgency, dysuria Musculoskeletal: back pain. denies: joint swelling, arthralgia Skin: denies: rash, lesions Neurological: denies: headache, weakness, paresthesias Psychiatric: denies: anxiety, depression Hematological/Lymphatic: denies: easy bleeding, easy bruising ED Past Medical Hx - Past Medical History Hx Hypertension: Yes (possible undiagnosed, patient on HTN med in hospital) Hx Congestive Heart Failure: No Hx Diabetes: No Hx Sickle Cell Disease: No Hx Asthma: No Hx COPD: No Hx HIV: No - Surgical History Additional Surgical History: left lung CA-2015 - Social History Smoking Status: Never Smoker Substance Use Type: Alcohol - Medications Home Medications: Home Medications Medication Instructions Recorded Confirmed Last Taken Type Benzonatate [Tessalon Perles] 100 mg PO Q8H #15 capsule 07/05/16 Unknown Rx Famotidine [Pepcid] 20 mg PO BID #60 tablet 07/05/16 Unknown Rx oxyCODONE /ACETAMINOPHEN [Percocet 1 tab PO Q6H PRN #20 tablet 07/05/16 Unknown Rx 5/325 mg] Hydralazine HCl [Apresoline TAB] 50 mg PO Q8HR #90 tab 10/12/16 Unknown Rx Metoprolol [Lopressor TAB] 50 mg PO BID #60 tablet 10/12/16 Unknown Rx Cyclobenzaprine [Flexeril] 10 mg PO TID PRN #30 tablet 06/27/17 Unknown Rx Lisinopril 20 mg PO DAILY #30 tablet 06/27/17 Unknown Rx Oxycodone HCl/Acetaminophen 1 each PO Q6HR PRN #16 tablet 06/27/17 Unknown Rx [Percocet 10/325 mg] ED Physical Exam - General Limitations: No Limitations General appearance: alert, in no apparent distress - Head Head exam: Present: atraumatic, normocephalic - Eye Eye exam: Present: normal appearance - ENT ENT exam: Present: mucous membranes moist - Neck Neck exam: Present: normal inspection - Respiratory Respiratory exam: Present: normal lung sounds bilaterally. Absent: respiratory distress - Cardiovascular Cardiovascular Exam: Present: regular rate, normal rhythm. Absent: systolic murmur, diastolic murmur, rubs, gallop - GI/Abdominal GI/Abdominal exam: Present: soft, normal bowel sounds - Rectal Rectal exam: Present: deferred - Extremities Exam Extremities exam: Present: normal inspection - Back Exam Back exam: Present: normal inspection, full ROM, tenderness (no midline TTP and most pain on the left.), muscle spasm (bilateral paraspinal) - Neurological Exam Neurological exam: Present: alert, oriented X3 - Psychiatric Psychiatric exam: Present: normal affect, normal mood - Skin Skin exam: Present: warm, dry, intact, normal color. Absent: rash ED Course Vital Signs 06/27/17 06/27/17 06/27/17 09:54 13:12 13:16 Temperature 98 F 98.0 F Pulse Rate 110 H 89 88 Respiratory 20 32 H 26 H Rate Blood Pressure 193/119 160/96 Blood Pressure 160/96 [Right] O2 Sat by Pulse 99 99 100 Oximetry 06/27/17 06/27/17 06/27/17 13:30 13:46 14:00 Temperature Pulse Rate 93 H 87 91 H Respiratory 14 17 15 Rate Blood Pressure 147/95 147/95 144/88 Blood Pressure [Right] O2 Sat by Pulse 100 100 Oximetry 06/27/17 06/27/17 06/27/17 14:16 14:28 14:30 Temperature Pulse Rate 98 H 81 Respiratory 24 18 12 Rate Blood Pressure 144/88 154/95 Blood Pressure [Right] O2 Sat by Pulse 98 100 100 Oximetry 06/27/17 06/27/17 06/27/17 14:46 15:00 15:16 Temperature Pulse Rate 90 90 90 Respiratory 13 17 18 Rate Blood Pressure 154/95 147/91 147/91 Blood Pressure [Right] O2 Sat by Pulse 99 98 98 Oximetry 06/27/17 15:30 Temperature Pulse Rate 92 H Respiratory 18 Rate Blood Pressure 151/97 Blood Pressure [Right] O2 Sat by Pulse Oximetry ED Medical Decision Making - Lab Data Result diagrams: 06/27/17 16:14 06/27/17 16:14 - Medical Decision Making Patient has on and off back pain and reports has been present for the last 3 months when I questioned him extensively on the back pain course. He has gotten pain meds from radiation oncology as far back as December but has not gotten any since April. His BP was very elevated when he arrived but has since normalized for him not taking his meds. I wrote lisinopril for him to take. He reports that he has an appointment with Dr. Hidalgo next week and he understands the importance of following up for his lung cancer evaluation in relation to his back pain. - Differential Diagnosis Subacute back pain from radiation, Metastatic disease, muscle spasm, DJD Critical care attestation.: If time is entered above; I have spent that time in minutes in the direct care of this critically ill patient, excluding procedure time. ED Disposition Clinical Impression: Lumbar back pain Back pain Qualifiers: Back pain location: thoracic back pain Chronicity: chronic Back pain laterality : left Qualified Code(s): M54.6 - Pain in thoracic spine; G89.29 - Other chronic pain; G89.29 - Other chronic pain Hypertension Qualifiers: Hypertension type: essential hypertension Qualified Code(s): I10 - Essential ( primary) hypertension Disposition: TO HOME OR SELFCARE Is pt being admited?: No Does the pt Need Aspirin: No Condition: Good Instructions: Low Back Strain (ED), Chronic Back Pain (ED), Hypertension (ED) Additional Instructions: Patient must keep appointment with oncology next Sunday. He has been made aware that while it is unlikely he has metastatic disease based on description of symptoms, he needs either PET or CT spine to evaluate spine. He agreed and is aware. Prescriptions: Cyclobenzaprine [Flexeril] 10 mg PO TID PRN #30 tablet PRN Reason: Muscle Spasm Lisinopril 20 mg PO DAILY #30 tablet Oxycodone HCl/Acetaminophen [Percocet 10/325 mg] 1 each PO Q6HR PRN #16 tablet PRN Reason: Pain Referrals: JP HIDALGO MD [Referring] - 3-5 Days Time of Disposition: 17:44
[2017-06-27 18:29] VITALS: BP 147/85
== END 2017-06-27 18:29 | disposition home or self-care (01) ==
LOC: ED 09:50
DX: M54.5 Low back pain (principal); G89.29 Other chronic pain; I10 Essential (primary) hypertension
CPT/HCPCS: 36415; 80053; 83690; 85025; 99283

== ENCOUNTER 2017-07-31 11:30 | Inpatient (IN) | payer MEDICARE, OTHER ==
[2017-07-31 12:40] LABS: Hematocrit 31.6 % (35.5-45.6); Hemoglobin 10.2 gm/dl (11.8-15.2); Mean Corpuscular Hemoglobin 26 pg (28-32); Mean Corpuscular Volume 80 fl (84-94); Red Blood Count 3.95 M/mm3 (3.65-5.03)
[2017-07-31 12:41] LABS: Mean Corpuscular HGB Conc 32 % (32-34); Platelet Count 437 K/mm3 (140-440); Red Cell Distribution Width 16.9 % (13.2-15.2)
[2017-07-31 12:42] LABS: BUN/Creatinine Ratio 38; Blood Urea Nitrogen 15 mg/dL (9-20); Calcium 8.8 mg/dL (8.4-10.2); Hemolysis Index 8
[2017-07-31] MEDS ORDERED: K-DUR PO ONE (12:47)
--- NOTE | 2017-07-31 12:48 | Emergency Department Report ---
ED General Adult HPI - General Chief complaint: Weakness Stated complaint: WEAKNESS,DIZZINESS Time Seen by Provider: 07/31/17 12:47 Source: patient, EMS Mode of arrival: Stretcher Limitations: Other - History of Present Illness Initial comments: Patient states that he ran out of [employer]. He was on his way to go to Dr. Elias office. However when he called Dr. Elias office he states he was told he has an appointment for tomorrow. The patient tells me that he felt weak and dizzy on the way to Dr. Elias's office so he diverted to the hospital. Somewhat incidentally he is telling me that he's had weakness and numbness in his right arm for the last approximately one week. He states he has not mentioned this to any doctor. He has not been suffering from acute chest pain pain neck pain or headache. He does have chronic chest and back pain in the zaria-incisional area. He denies any pain involving his thoracic spine area. He states he has had 2 lift his left arm up with his right arm at times because it is weak. The patient has no history of cerebral metastases nor cervical spine metastases. He is status post a lobectomy. He states he is received a course of radiation therapy. -: days(s), week(s) Location: chest (she complains of chronic pain in the zaria-incisional area of the previous lobectomy and not in the anterior chest.), left, upper extremity ( weakness and some numbness) Severity scale (0 -10): 0 - Related Data Home Medications Medication Instructions Recorded Confirmed Last Taken amLODIPine [Norvasc] 5 mg PO DAILY 07/31/17 07/31/17 Unknown Previous Rx's Medication Instructions Recorded Last Taken Type Cyclobenzaprine [Flexeril] 10 mg PO TID PRN #30 tablet 06/27/17 Unknown Rx Oxycodone HCl/Acetaminophen 1 each PO Q6HR PRN #16 tablet 06/27/17 Unknown Rx [Percocet 10/325 mg] Allergies Allergy/AdvReac Type Severity Reaction Status Date / Time No Known Allergies Allergy Verified 06/27/17 09:54 ED Review of Systems ROS: Stated complaint: WEAKNESS,DIZZINESS Other details as noted in HPI Constitutional: denies: chills, fever Eyes: denies: eye pain, eye discharge, vision change ENT: denies: ear pain, throat pain Respiratory: shortness of breath. denies: cough, wheezing Cardiovascular: chest pain. denies: palpitations Endocrine: no symptoms reported Gastrointestinal: denies: abdominal pain, nausea, diarrhea Genitourinary: denies: urgency, dysuria Musculoskeletal: denies: back pain, joint swelling, arthralgia Skin: denies: rash, lesions Neurological: weakness, numbness. denies: headache, paresthesias Psychiatric: denies: anxiety, depression Hematological/Lymphatic: denies: easy bleeding, easy bruising ED Past Medical Hx - Past Medical History Previous Medical History?: Yes Hx Hypertension: Yes Hx Congestive Heart Failure: No Hx Diabetes: No Hx of Cancer: Yes (lung cancer/lobectomy) Hx Sickle Cell Disease: No Hx Asthma: No Hx COPD: No Hx HIV: No Additional medical history: chronic back pain - Surgical History Past Surgical History?: Yes Additional Surgical History: left lung CA-2014 with lobectomy approx. 2016? - Social History Smoking Status: Never Smoker Substance Use Type: Alcohol - Medications Home Medications: Home Medications Medication Instructions Recorded Confirmed Last Taken Type Cyclobenzaprine [Flexeril] 10 mg PO TID PRN #30 tablet 06/27/17 07/31/17 Unknown Rx Oxycodone HCl/Acetaminophen 1 each PO Q6HR PRN #16 tablet 06/27/17 07/31/17 Unknown Rx [Percocet 10/325 mg] amLODIPine [Norvasc] 5 mg PO DAILY 07/31/17 07/31/17 Unknown History ED Physical Exam - General Limitations: No Limitations General appearance: alert, in no apparent distress - Head Head exam: Present: atraumatic, normocephalic - Eye Eye exam: Present: normal appearance, PERRL, EOMI. Absent: scleral icterus - ENT ENT exam: Present: mucous membranes moist - Neck Neck exam: Present: normal inspection. Absent: tenderness, meningismus - Respiratory Respiratory exam: Present: normal lung sounds bilaterally. Absent: respiratory distress - Cardiovascular Cardiovascular Exam: Present: regular rate, normal rhythm. Absent: systolic murmur, diastolic murmur, rubs, gallop - GI/Abdominal GI/Abdominal exam: Present: soft, normal bowel sounds. Absent: distended, tenderness, guarding, rebound, rigid - Rectal Rectal exam: Present: deferred - Extremities Exam Extremities exam: Present: normal inspection - Back Exam Back exam: Present: normal inspection - Neurological Exam Neurological exam: Present: alert, oriented X3, CN II-XII intact, motor sensory deficit (L arm weakness and drift) - Psychiatric Psychiatric exam: Present: normal affect, normal mood - Skin Skin exam: Present: warm, dry, intact, normal color. Absent: rash ED Course Vital Signs 07/31/17 07/31/17 07/31/17 11:35 11:58 13:03 Temperature 97.3 F L Pulse Rate 90 80 Respiratory 16 16 16 Rate Blood Pressure 146/100 Blood Pressure 138/85 [Left] O2 Sat by Pulse 95 99 Oximetry 07/31/17 07/31/17 07/31/17 14:38 14:45 15:00 Temperature Pulse Rate 104 H Respiratory 21 23 Rate Blood Pressure 150/108 Blood Pressure [Left] O2 Sat by Pulse 100 98 Oximetry 07/31/17 15:15 Temperature Pulse Rate 105 H Respiratory 17 Rate Blood Pressure 150/108 Blood Pressure [Left] O2 Sat by Pulse 100 Oximetry - Reevaluation(s) Reevaluation #1: The patient will need a workup for metastatic disease and possibly even stroke. He certainly has significant left arm weakness. He will be admitted I Dr. Samson to the hospitalist service. Additionally he is hypokalemic and has uncontrolled hypertension. 07/31/17 16:01 Reevaluation #2: CTs with contrast of the cervical spine and the brain are pending. 07/31/17 16:02 ED Medical Decision Making - Lab Data Result diagrams: 07/31/17 12:09 07/31/17 12:09 Laboratory Results - last 24 hr 07/31/17 07/31/17 12:09 12:09 WBC 6.9 RBC 3.95 Hgb 10.2 L Hct 31.6 L MCV 80 L MCH 26 L MCHC 32 RDW 16.9 H Plt Count 437 Sodium 141 Potassium 2.9 L* Chloride 96.2 L Carbon Dioxide 29 Anion Gap 19 BUN 15 Creatinine 0.4 L Estimated GFR > 60 BUN/Creatinine Ratio 38 Glucose 104 H Calcium 8.8 - Radiology Data interpreted by me: Postoperative changes suspect pleural effusion and persistent metastatic lung disease Critical care attestation.: If time is entered above; I have spent that time in minutes in the direct care of this critically ill patient, excluding procedure time. ED Disposition Clinical Impression: Left arm weakness, Pleural effusion, Hypokalemia Metastatic lung cancer (metastasis from lung to other site) Qualifiers: Laterality: left Qualified Code(s): C34.92 - Malignant neoplasm of unspecified part of left bronchus or lung Disposition: 09 OP ADMIT IP TO THIS HOSP Is pt being admited?: Yes Does the pt Need Aspirin: No (hold until CT report) Condition: Stable Referrals: EMILEE MARTINEZ MD [Primary Care Provider] - 3-5 Days Time of Disposition: 16:04
[2017-07-31 13:06] LABS: Albumin 3.3 g/dL (3.9-5)
[2017-07-31 13:09] LABS: Alanine Aminotransferase < 5 units/L (7-56); Bilirubin,Direct < 0.2 mg/dL (0-0.2)
[2017-07-31] MEDS ORDERED: PERCOCET 5/325 PO ONE (14:50)
[2017-07-31] MEDS ORDERED: NACL 0.9% 1000 ML 1,000 ML IV ONE (15:16)
[2017-07-31 15:20] LABS: Bilirubin,Urine NEG (Negative); Blood,Urine NEG (Negative); Color,Urine Yellow (Yellow); Mucus,Urine 2+ /HPF; Nitrite,Urine NEG (Negative)
[2017-07-31] MEDS ORDERED: PROVENTIL IH PRN (15:31)
[2017-07-31] MEDS ORDERED: ZOFRAN IV PRN (15:31)
[2017-07-31] MEDS ORDERED: DULCOLAX PR PRN (15:31)
[2017-07-31] MEDS ORDERED: TYLENOL PO PRN (15:31)
[2017-07-31] MEDS ORDERED: MILK OF MAGNESIA PO PRN (15:31)
[2017-07-31] MEDS ORDERED: NON-FORMULARY (Oxycodone Hcl/Acetaminophen [Percocet 10/325 Mg] 1 EACH) PO PRN (15:32)
--- NOTE | 2017-07-31 15:32 | XRay Report ---
AP CHEST: HISTORY: Hypertension Consolidation has developed throughout the lingula and left lower lobe since 10/10/16. This could represent infiltrate, effusion or both. Please correlate with the patient's clinical presentation. The right lung is generally clear. Heart size is within normal limits. IMPRESSION: Consolidation at the left lung base concerning for infiltrate, effusion or both. Consider further evaluation with CT with contrast is needed.
--- NOTE | 2017-07-31 16:37 | History and Physical Report ---
History of Present Illness Date of admission: 07/31/17 15:31 Chief complaint: ai feel weak, and dizzy History of present illness: 66 YO Male with HTN, Lung Cancer presents to ED for evaluation. Pt states that he has been feeling weak and dizzy for the past week. Pt states that he was scheduled to see Dr. SORTO, and called the office today and informed them of his symptoms. Pt was diverted to the hospital. Pt states that he has experienced weakness and numbness in his right arm for the last approximately one week as well. Pt denies fever, chills, CP, Palpitations, Syncope, BRBPR, hemoptysis, Trauma, Falls, BRBPR, Recent ill contacts, Productive cough, vertigo, or loss of bowel/bladder continence, or headaches. Pt seen and evaluated in ED and found to have weakness. CXR in ED shows consolidation. CT imaging of head and spine ordered to evaluated for metastatic disease. Past History Past Medical History: cancer, hypertension Past Surgical History: Other (Lung lobectomy.) Social history: . denies: smoking, alcohol abuse Family history: no significant family history (reviewed) Medications and Allergies Allergies Allergy/AdvReac Type Severity Reaction Status Date / Time No Known Allergies Allergy Verified 06/27/17 09:54 Home Medications Medication Instructions Recorded Confirmed Last Taken Type Cyclobenzaprine [Flexeril 10 MG 10 mg PO TID PRN #30 tablet 08/09/17 Unknown Rx TAB] Oxycodone HCl/Acetaminophen 1 each PO Q6HR PRN #16 tablet 08/09/17 Unknown Rx [Percocet 10/325 mg] amLODIPine [Norvasc] 5 mg PO DAILY #30 tablet 08/09/17 Unknown Rx Active Meds: Active Medications Acetaminophen (Tylenol) 650 mg PO Q4H PRN PRN Reason: Pain MILD(1-3)/Fever >100.5/HURD Albuterol (Proventil) 2.5 mg IH Q4HRT PRN PRN Reason: Shortness Of Breath Amlodipine Besylate (Norvasc) 5 mg PO DAILY LISA Bisacodyl (Dulcolax) 10 mg DE QDAY PRN PRN Reason: Constipation unrelieved by MOM Cyclobenzaprine HCl (Flexeril) 10 mg PO TID PRN PRN Reason: Muscle Spasm Sodium Chloride (Nacl 0.9% 1000 Ml) 1,000 mls @ 125 mls/hr IV ONCE ONE Stop: 07/31/17 23:15 Last Admin: 07/31/17 15:50 Dose: 125 mls/hr Magnesium Hydroxide (Milk Of Magnesia) 30 ml PO Q4H PRN PRN Reason: Constipation Miscellaneous Medication (Oxycodone Hcl/Acetaminophen [Percocet 10/325 Mg]) 1 each PO Q6HR PRN PRN Reason: Pain Morphine Sulfate (Morphine) 2 mg IV Q4H PRN PRN Reason: Pain, Moderate (4-6) Ondansetron HCl (Zofran) 4 mg IV Q8H PRN PRN Reason: N/V unrelieved by Reglan Review of Systems Constitutional: no weight loss, no weight gain, no fever, no chills Ears, nose, mouth and throat: no ear pain, no ear discharge, no tinnitis, no decreased hearing, no nose pain, no nasal congestion Cardiovascular: shortness of breath, no chest pain, no orthopnea, no palpitations, no rapid/irregular heart beat Respiratory: no cough, no cough with sputum, no excessive sputum, no hemoptysis Gastrointestinal: no abdominal pain, no nausea, no vomiting, no diarrhea Genitourinary Male: no dysuria, no hematuria, no flank pain, no discharge, no urinary frequency Rectal: no pain, no incontinence, no bleeding Musculoskeletal: no neck stiffness, no neck pain, no shooting arm pain, no arm numbness/tingling, no low back pain Integumentary: no rash, no pruritis, no redness, no sores, no wounds Neurological: no head injury, no transient paralysis, no paralysis, no weakness , no parathesias, no numbness Psychiatric: no anxiety, no memory loss, no change in sleep habits, no sleep disturbances, no insomnia, no hypersomnia, no change in appetite Endocrine: no cold intolerance, no heat intolerance, no polyphagia, no excessive thirst, no polydipsia, no polyuria Hematologic/Lymphatic: no easy bruising, no easy bleeding Allergic/Immunologic: no urticaria, no allergic rhinitis, no wheezing Exam - Constitutional Vitals: Temp Pulse Resp BP Pulse Ox 97.3 F L 105 H 20 150/108 100 07/31/17 11:58 07/31/17 15:15 07/31/17 15:45 07/31/17 15:15 07/31/17 15:15 General appearance: Present: mild distress - EENT Eyes: Present: PERRL ENT: hearing intact, clear oral mucosa - Neck Neck: Present: supple, normal ROM - Respiratory Respiratory: left: rhonchi, bilateral: diminished - Cardiovascular Heart Sounds: Present: S1 & S2. Absent: rub, click - Extremities Extremities: pulses symmetrical, No edema Peripheral Pulses: within normal limits - Abdominal General gastrointestinal: Present: soft, non-tender, non-distended, normal bowel sounds Male genitourinary: Present: normal - Integumentary Integumentary: Present: clear, warm, dry - Musculoskeletal Musculoskeletal: gait normal, strength equal bilaterally - Psychiatric Psychiatric: appropriate mood/affect, intact judgment & insight - Neurologic Neurologic: CNII-XII intact, moves all extremities Results - Labs CBC & Chem 7: 08/11/17 05:36 08/11/17 05:36 Labs: Abnormal lab results 07/31/17 07/31/17 07/31/17 Range/Units 12:09 12:09 12:09 Hgb 10.2 L (11.8-15.2) gm/dl Hct 31.6 L (35.5-45.6) % MCV 80 L (84-94) fl MCH 26 L (28-32) pg RDW 16.9 H (13.2-15.2) % Potassium 2.9 L* (3.6-5.0) mmol/L Chloride 96.2 L (98-107) mmol/L Creatinine 0.4 L (0.8-1.5) mg/dL Glucose 104 H (75-100) mg/dL ALT < 5 L (7-56) units/L Alkaline Phosphatase 279 H (35-129) units/L Albumin 3.3 L (3.9-5) g/dL Assessment and Plan - Patient Problems (1) Acute respiratory failure Current Visit: No Status: Acute Qualifiers: Respiratory failure complication: hypoxia Qualified Code(s): J96.01 - Acute respiratory failure with hypoxia Plan to address problem: Supplemental oxygen, nebulizer therapy, aspiration precautions, Chest X ray, pulmonary consulted. (2) Hypokalemia Current Visit: Yes Status: Acute Plan to address problem: potassium repleted, (3) Metastatic lung cancer (metastasis from lung to other site) Current Visit: Yes Status: Acute Qualifiers: Laterality: left Qualified Code(s): C34.92 - Malignant neoplasm of unspecified part of left bronchus or lung Plan to address problem: Pulmonary consulted, CT brain, CT Cervical spine, supportive care, CT scan chest , (4) Pleural effusion Current Visit: Yes Status: Acute Plan to address problem: Pulmonary consulted, CT Chest, supportive care, (5) DVT prophylaxis Current Visit: Yes Status: Acute
--- NOTE | 2017-07-31 19:23 | Cat Scan Report ---
FINAL REPORT EXAM: CT CERVICAL SPINE W CON HISTORY: L arm weakness metastatic lung TECHNIQUE: Standard enhanced CT cervical spine obtained axial increments. Coronal and sagittal reconstruction was also performed. Contrast: 100 cc Omnipaque 300 given IV PRIORS: None. FINDINGS: There are numerous destructive lytic lesions identified throughout the upper thoracic spine from T1 through visualized T5. There also several lytic lesions identified the transverse processes and multiple posterior ribs proximally at many of these levels. Findings are consistent with metastatic disease. In the cervical spine, there is abnormal sclerosis of the right half of C1 and the base of the left side of the skull around the foramina magnum which is suspicious for metastatic disease. No pathologic fracture is noted. Lucency in the body of C2, C6, and C7 is suspicious well. Otherwise, the vertebral bodies are intact. There is no evidence for acute fracture. There is no evidence for paravertebral soft tissue swelling. Alignment is maintained. Bullous changes are present in the upper lobes of both lungs. IMPRESSION: Extensive bony metastatic disease at multiple levels in the cervical and thoracic vertebral bodies. No evidence for pathologic or acute fracture.
[2017-07-31] MEDS: MORPHINE IV PRN (21:14)
--- NOTE | 2017-07-31 22:30 | Cat Scan Report ---
FINAL REPORT EXAM: CT HEAD/BRAIN W CON HISTORY: L arm weakness metastatic lung TECHNIQUE: Axial postcontrast CT images of the brain Multiplanar reformats are performed on the acquisition scanner. Comparison: 06/30/2016 FINDINGS: There is normal augustin-white differentiation without midline shift or mass effect. There are no acute extra-axial fluid collections or intraparenchymal blood products. Ventricles and cisterns have normal size and configuration. The intracranial vasculature demonstrates normal vertebrobasilar vessels and branching. There is mild atherosclerotic occlusive disease of the proximal bilateral internal carotid arteries without significant stenosis. The distal bilateral internal carotid arteries have normal course and caliber. The anterior communicating arteries are patent. The anterior and middle cerebral arteries are unremarkable. Dural venous sinuses are patent. There is normal augustin-white differentiation. There is no midline shift or mass effect. There are no intraparenchymal blood products or extra-axial fluid collections. No precontrast images were performed. Mild right posterior greater than left posterior ethmoid air cell mucosal thickening. IMPRESSION: No evidence for transcortical infarct, bleed, or mass identified. No abnormal enhancement. Mild proximal bilateral internal carotid artery atherosclerotic occlusive disease without significant stenosis. Mild sinus disease. If symptoms persist, recommend MRI brain without and with gadolinium if there are no contraindications. No bone windows were provided of the calvarium. There are no definite calvarial lytic or blastic lesions. There was noted extensive cervical metastatic disease. There is asymmetric sclerosis of the left C1 pedicle relative to the right.
[2017-08-01] MEDS: MORPHINE IV PRN ×6 (00:57→23:19)
[2017-08-01] MEDS: FLEXERIL PO PRN (00:57)
[2017-08-01] MEDS ORDERED: NACL ONE (07:08)
--- NOTE | 2017-08-01 08:21 | Cat Scan Report ---
CT CHEST WITH CONTRAST: HISTORY: Lung cancer. COMPARISON: CTA chest dated 06/19/16. TECHNIQUE: Helical CT in 1.25mm intervals following IV contrast. Sagittal and coronal reformatted images. FINDINGS: Thyroid gland: Normal. Tracheobronchial tree: Unremarkable. Esophagus: Normal. Heart: Normal. Pericardium: Normal. Mediastinum: Within normal limits. No bulky mediastinal or hilar adenopathy has developed. The aorta is normal caliber. The central pulmonary arteries are patent. Lung Clark: Bilateral pleural effusions essentially resolved since 06/19/16. Trace left pleural effusion may be present. There is consolidation or collapse throughout the left lower lobe which has increased since the previous exam. Mass or masses within the left lower lobe cannot be excluded. Superimposed pneumonia can also not be excluded. Moderate centrilobular and paraseptal emphysematous changes are again noted. There are 2 new masses in the right lower lobe measuring 1.7 cm and 1.6 cm. A solitary new 5 mm nodule is noted in the posterior right upper lobe. No evidence for pneumothorax. Pleural Spaces: Possible trace left pleural fluid. Musculoskeletal: Numerous lytic lesions have developed throughout the thoracic spine and bilateral ribs and left scapula consistent with bony metastasis. Multiple bilateral rib fractures are identified some of which appear to be pathologic. Healing left lateral rib fractures are identified at levels 7, 8 and 9. Healing posterior right rib fractures are identified on the right side at levels 7 and 10. A subtle compression deformity has developed at T7 which appears to be new. IMPRESSION: Progression of disease in the chest as demonstrated since 06/19/16. There is consolidation throughout the left lower lobe which could represent collapse or pneumonia. There are at least 3 new nodules/masses in the right lung as described above. Numerous lytic bony lesions and multiple pathologic fractures are identified throughout the thoracic cage as outlined above.
[2017-08-01] MEDS: NORVASC PO SCH (09:16)
[2017-08-01 12:01] LABS: Magnesium 1.6 mg/dL (1.7-2.3)
[2017-08-01] MEDS: ROXICODONE PO PRN (15:05)
[2017-08-01] MEDS: PERCOCET 5/325 PO PRN ×2 (15:05→21:45)
--- NOTE | 2017-08-01 20:10 | Progress Note ---
Assessment and Plan Assessment and plan: --Acute respiratory failure with hypoxia; Oxygen titrated O2 sats more than 90%, nebulizers, but if --History of metastatic lung cancer; Continue supportive care, pulmonary and oncology consultation --Extensive bone metastases; Supportive care with pain medications, , Consulted Dr. SORTO --Severe Hypokalemia; replenish per protocol and monitor levels --Hypomagnesemia; the patient is a protocol monitor levels --Possible Malignant pleural effusion on CT scan; pulmonary evaluation Ultrasound-guided thoracentesis if needed --DVT prophylaxis; Lovenox --Full CODE STATUS Closely monitor the patient and adjust management as needed History Interval history: Patient seen and evaluated medical records reviewed Complaints of back pain, workup is consistent with metastatic lung cancer with bone metastases Patient follows with hematology oncologist Dr. SORTO Alert awake oriented 3 Vital signs reviewed Hospitalist Physical - Constitutional Vitals: Temp Pulse Resp BP Pulse Ox 98.6 F 106 H 20 156/102 97 08/01/17 15:21 08/01/17 16:52 08/01/17 15:21 08/01/17 16:52 08/01/17 18:12 General appearance: Present: mild distress, well-nourished - EENT Eyes: Present: PERRL, EOM intact - Neck Neck: Present: supple, normal ROM - Respiratory Respiratory effort: normal Respiratory: bilateral: diminished, rhonchi, negative: rales, wheezing - Cardiovascular Rhythm: regular Heart Sounds: Present: S1 & S2 - Extremities Extremities: no ischemia, No edema - Abdominal General gastrointestinal: soft, non-tender, non-distended, normal bowel sounds - Integumentary Integumentary: Present: clear, warm - Psychiatric Psychiatric: appropriate mood/affect, cooperative - Neurologic Neurologic: CNII-XII intact, moves all extremities Results - Labs CBC & Chem 7: 07/31/17 12:09 08/01/17 10:42 Labs: Laboratory Last Values WBC 6.9 K/mm3 (4.5-11.0) 07/31/17 12:09 RBC 3.95 M/mm3 (3.65-5.03) 07/31/17 12:09 Hgb 10.2 gm/dl (11.8-15.2) L 07/31/17 12:09 Hct 31.6 % (35.5-45.6) L 07/31/17 12:09 MCV 80 fl (84-94) L 07/31/17 12:09 MCH 26 pg (28-32) L 07/31/17 12:09 MCHC 32 % (32-34) 07/31/17 12:09 RDW 16.9 % (13.2-15.2) H 07/31/17 12:09 Plt Count 437 K/mm3 (140-440) 07/31/17 12:09 Sodium 141 mmol/L (137-145) 07/31/17 12:09 Potassium 3.1 mmol/L (3.6-5.0) L 08/01/17 10:42 Chloride 96.2 mmol/L (98-107) L 07/31/17 12:09 Carbon Dioxide 29 mmol/L (22-30) 07/31/17 12:09 Anion Gap 19 mmol/L 07/31/17 12:09 BUN 15 mg/dL (9-20) 07/31/17 12:09 Creatinine 0.4 mg/dL (0.8-1.5) L 07/31/17 12:09 Estimated GFR > 60 ml/min 07/31/17 12:09 BUN/Creatinine Ratio 38 % 07/31/17 12:09 Glucose 104 mg/dL (75-100) H 07/31/17 12:09 Calcium 8.8 mg/dL (8.4-10.2) 07/31/17 12:09 Magnesium 1.60 mg/dL (1.7-2.3) L 08/01/17 10:42 Total Bilirubin 0.40 mg/dL (0.1-1.2) 07/31/17 12:09 Direct Bilirubin < 0.2 mg/dL (0-0.2) 07/31/17 12:09 Indirect Bilirubin 0.2 mg/dL 07/31/17 12:09 AST 8 units/L (5-40) 07/31/17 12:09 ALT < 5 units/L (7-56) L 07/31/17 12:09 Alkaline Phosphatase 279 units/L (35-129) H 07/31/17 12:09 Total Protein 7.1 g/dL (6.3-8.2) 07/31/17 12:09 Albumin 3.3 g/dL (3.9-5) L 07/31/17 12:09 Albumin/Globulin Ratio 0.9 % 07/31/17 12:09 Urine Color Yellow (Yellow) 07/31/17 14:50 Urine Turbidity Clear (Clear) 07/31/17 14:50 Urine pH 5.0 (5.0-7.0) 07/31/17 14:50 Ur Specific [place] 1.028 (1.003-1.030) 07/31/17 14:50 Urine Protein 30 mg/dl mg/dL (Negative) 07/31/17 14:50 Urine Glucose (UA) Neg mg/dL (Negative) 07/31/17 14:50 Urine Ketones Neg mg/dL (Negative) 07/31/17 14:50 Urine Blood Neg (Negative) 07/31/17 14:50 Urine Nitrite Neg (Negative) 07/31/17 14:50 Urine Bilirubin Neg (Negative) 07/31/17 14:50 Urine Urobilinogen 4.0 mg/dL (<2.0) 07/31/17 14:50 Ur Leukocyte Esterase Neg (Negative) 07/31/17 14:50 Urine WBC (Auto) 4.0 /HPF (0.0-6.0) 07/31/17 14:50 Urine RBC (Auto) 1.0 /HPF (0.0-6.0) 07/31/17 14:50 U Epithel Cells (Auto) < 1.0 /HPF (0-13.0) 07/31/17 14:50 Urine Mucus 2+ /HPF 07/31/17 14:50
[2017-08-01] MEDS ORDERED: K-DUR PO ONE (21:00)
[2017-08-01] MEDS: APRESOLINE IV PRN (23:14)
[2017-08-02] MEDS: MORPHINE IV PRN ×3 (05:29→17:26)
[2017-08-02] MEDS: APRESOLINE IV PRN ×2 (05:36→13:59)
[2017-08-02 07:27] LABS: Basophils % (Auto) 0.4 % (0.0-1.8); Eosinophils # (Auto) 0.2 K/mm3 (0.0-0.4); Eosinophils % (Auto) 2.7 % (0.0-4.3); Hematocrit 33.1 % (35.5-45.6); Hemoglobin 10.8 gm/dl (11.8-15.2); Lymphocytes # (Auto) 0.4 K/mm3 (1.2-5.4); Mean Corpuscular HGB Conc 33 % (32-34); Mean Corpuscular Hemoglobin 26 pg (28-32); Mean Corpuscular Volume 80 fl (84-94); Monocytes # (Auto) 0.6 K/mm3 (0.0-0.8); Monocytes % (Auto) 8.7 % (0.0-7.3); Platelet Count 401 K/mm3 (140-440); Red Blood Count 4.15 M/mm3 (3.65-5.03); Red Cell Distribution Width 17.1 % (13.2-15.2)
[2017-08-02 07:48] LABS: Albumin 3.5 g/dL (3.9-5); BUN/Creatinine Ratio 30; Blood Urea Nitrogen 6 mg/dL (9-20); Calcium 9.4 mg/dL (8.4-10.2); Hemolysis Index 1
[2017-08-02 07:49] LABS: Alanine Aminotransferase < 5 units/L (7-56); Bilirubin,Direct < 0.2 mg/dL (0-0.2)
[2017-08-02] MEDS: NORVASC PO SCH (09:22)
[2017-08-02] MEDS: MAG-OX PO SCH (09:22)
--- NOTE | 2017-08-02 12:53 | Consultation ---
History of Present Illness Consult date: 08/02/17 Requesting physician: ANDRIA VARGHESE Reason for consult: other (Lung cancer, pleural effusion) History of present illness: 66 YO Male with HTN, Lung Cancer presents to ED for evaluation. Pt states that he has been feeling weak and dizzy for the past week. Pt states that he was scheduled to see Dr. SORTO, and called the office today and informed them of his symptoms. Pt was diverted to the hospital. Pt states that he has experienced weakness and numbness in his right arm for the last approximately one week as well. Pt denies fever, chills, CP, Palpitations, Syncope, BRBPR, hemoptysis, Trauma, Falls, BRBPR, Recent ill contacts, Productive cough, vertigo, or loss of bowel/bladder continence, or headaches. Pt seen and evaluated in ED and found to have weakness. CXR in ED shows consolidation. CT imaging of head and spine ordered to evaluated for metastatic disease. CT chest was done and it shows a left lower lobe consolidation, there is minimal effusion on my review of the CTScans. We have been consulted for pleural effusion and lung cance. Ct chest was done and it shows a left lower lobe consolidation, there is minimal effusion on my review of the CT Scans but will get ultrasound to further evaluate. Patient was seen and examined. His vitals, labs, medications, chart and imaging were reviewed. He denies any chest pain, no hemoptysis but is tachypnic at rest, O2 saturations are 97% on ambient air. He had a left lower lobe lobectomy for lung cancer, followed by radiation therapy. I suspect the abnormality seen on CT chest is post lobectomy changes with filling up of the space and consequent consolidation. . Past History Past Medical History: cancer, hypertension Past Surgical History: Other (Lung lobectomy.) Social history: . denies: smoking, alcohol abuse Family history: no significant family history (reviewed) Medications and Allergies Allergies Allergy/AdvReac Type Severity Reaction Status Date / Time No Known Allergies Allergy Verified 06/27/17 09:54 Home Medications Medication Instructions Recorded Confirmed Last Taken Type Cyclobenzaprine [Flexeril] 10 mg PO TID PRN #30 tablet 06/27/17 07/31/17 Unknown Rx Oxycodone HCl/Acetaminophen 1 each PO Q6HR PRN #16 tablet 06/27/17 07/31/17 Unknown Rx [Percocet 10/325 mg] Acetaminophen [Tylenol Extra 500 mg PO Q4-6H 07/31/17 07/31/17 Unknown History Strength] amLODIPine [Norvasc] 5 mg PO DAILY 07/31/17 07/31/17 Unknown History Active Meds: Active Medications Acetaminophen (Tylenol) 650 mg PO Q4H PRN PRN Reason: Pain MILD(1-3)/Fever >100.5/HURD Albuterol (Proventil) 2.5 mg IH Q4HRT PRN PRN Reason: Shortness Of Breath Amlodipine Besylate (Norvasc) 5 mg PO DAILY [facility] Last Admin: 08/02/17 09:22 Dose: 5 mg Bisacodyl (Dulcolax) 10 mg [place] QDAY PRN PRN Reason: Constipation unrelieved by MOM Cyclobenzaprine HCl (Flexeril) 10 mg PO TID PRN PRN Reason: Muscle Spasm Last Admin: 08/01/17 00:57 Dose: 10 mg Hydralazine HCl (Apresoline) 5 mg IV Q6H PRN PRN Reason: Hypertension Last Admin: 08/02/17 05:36 Dose: 5 mg Magnesium Hydroxide (Milk Of Magnesia) 30 ml PO Q4H PRN PRN Reason: Constipation Magnesium Oxide (Mag-Ox) 400 mg PO QDAY [facility] Last Admin: 08/02/17 09:22 Dose: 400 mg Morphine Sulfate (Morphine) 2 mg IV Q4H PRN PRN Reason: Pain, Moderate (4-6) Last Admin: 08/02/17 09:27 Dose: 2 mg Ondansetron HCl (Zofran) 4 mg IV Q8H PRN PRN Reason: N/V unrelieved by Reglan Oxycodone HCl (Roxicodone) 5 mg PO Q6H PRN PRN Reason: Pain, Moderate (4-6) Last Admin: 08/01/17 15:05 Dose: 5 mg Oxycodone/Acetaminophen (Percocet 5/325) 1 tab PO Q6H PRN PRN Reason: Pain, Moderate (4-6) Last Admin: 08/01/17 21:45 Dose: 1 tab Review of Systems Constitutional: fatigue, chronic pain, no weight loss, no weight gain, no fever , no chills, no sweats Ears, nose, mouth and throat: no ear pain, no ear discharge, no tinnitis, no nose pain Cardiovascular: shortness of breath, no chest pain, no orthopnea, no palpitations, no edema, no syncope Respiratory: shortness of breath, dyspnea on exertion, no cough, no congestion, no pain on inspiration Gastrointestinal: no abdominal pain, no nausea, no vomiting, no diarrhea, no change in bowel habits Genitourinary Male: no dysuria, no hematuria, no flank pain, no discharge, no nocturia, no incontinence Rectal: no pain, no incontinence, no bleeding Musculoskeletal: no neck stiffness, no neck pain, no shooting arm pain, no shooting leg pain, no redness of joints Integumentary: no rash, no redness, no jaundice, no boils, no blisters Neurological: no paralysis, no weakness, no numbness, no tingling, no seizures, no syncope, no tremors Psychiatric: no anxiety, no memory loss, no change in sleep habits, no insomnia , no change in appetite Endocrine: no cold intolerance, no heat intolerance, no polyphagia, no excessive thirst, no polydipsia, no nocturia, no excessive sweating Hematologic/Lymphatic: no easy bruising, no easy bleeding, no lymphadenopathy, no lymphedema Allergic/Immunologic: no urticaria, no allergic rhinitis, no wheezing, no anaphylaxis, no seasonal allergies Physical Examination Vital signs: Vital Signs Pulse Resp BP Pulse Ox 90 16 146/100 95 07/31/17 11:35 07/31/17 11:35 07/31/17 11:35 07/31/17 11:35 General appearance: no acute distress, other (tacypnic) Eyes: non-icteric ENT: oropharynx moist Neck: supple, no lymphadenopathy, no JVD Effort: mildly labored Ascultation: Bilateral: diminished breath sounds Cardiovascular: regular rate and rhythm, other (S1,S2, no murmurs, gallops or rubs) Gastrointestinal: normoactive bowel sounds, soft, non-tender Integumentary: normal, other (Left chest wall scar) Extremities: no cyanosis, no edema, pink and warm, pulses normal, no ischemia or petechiae Musculoskeletal: no deformities Gait: normal gait, normal posture normal mental status, non-focal exam, pupils equal and round, CN II-XII normal, motor strength normal and mood appropriate, affect normal Results - Laboratory Findings CBC and BMP: 08/02/17 06:17 08/02/17 06:17 Abnormal lab findings: Abnormal Labs 07/31/17 07/31/17 07/31/17 12:09 12:09 12:09 Hgb 10.2 L Hct 31.6 L MCV 80 L MCH 26 L RDW 16.9 H Lymph % (Auto) [place] % (Auto) Lymph # Seg Neutrophils % Potassium 2.9 L* Chloride 96.2 L BUN Creatinine 0.4 L Glucose 104 H Magnesium ALT < 5 L Alkaline Phosphatase 279 H Albumin 3.3 L 08/01/17 08/02/17 08/02/17 10:42 06:17 06:17 Hgb 10.8 L Hct 33.1 L MCV 80 L MCH 26 L RDW 17.1 H Lymph % (Auto) 5.0 L [place] % (Auto) 8.7 H Lymph # 0.4 L Seg Neutrophils % 83.2 H Potassium 3.1 L 3.2 L Chloride 91.0 L BUN 6 L Creatinine 0.2 L Glucose Magnesium 1.60 L 1.60 L ALT < 5 L Alkaline Phosphatase 283 H Albumin 3.5 L - Diagnostic Findings CT scan - chest: image reviewed Assessment and Plan --Acute respiratory failure with hypoxia (resolved) Oxygen titrated O2 sats more than 90% Prn bronchodilators Supplemental oxygen as needed to keep O2 sats>88% VTE porphylaxsis --History of metastatic lung cancer s/p left lower lobe lobectomy Continue supportive care Pain management Oncology consult --Extensive bone metastases; Supportive care with pain medications --Severe Hypokalemia; replenish per protocol and monitor levels --Hypomagnesemia; the patient is a protocol monitor levels --Possible Malignant pleural effusion on CT scan- the scans do not show any effusion, rather a complaex infiltrate. Will get ultrasound of the left chest and then make further recommendations/ management decisions
--- NOTE | 2017-08-02 13:05 | Hem/Onc Consultation ---
History of Present Illness - Reason for Consult Consult date: 08/02/17 - History of Present Illness dictated ck MRI spine will need chemo as op for palliative purposes Past History Past Medical History: cancer, hypertension Past Surgical History: Other (Lung lobectomy.) Social history: . denies: smoking, alcohol abuse Family history: no significant family history (reviewed) Medications and Allergies Allergies Allergy/AdvReac Type Severity Reaction Status Date / Time No Known Allergies Allergy Verified 06/27/17 09:54 Home Medications Medication Instructions Recorded Confirmed Last Taken Type Cyclobenzaprine [Flexeril] 10 mg PO TID PRN #30 tablet 06/27/17 07/31/17 Unknown Rx Oxycodone HCl/Acetaminophen 1 each PO Q6HR PRN #16 tablet 06/27/17 07/31/17 Unknown Rx [Percocet 10/325 mg] Acetaminophen [Tylenol Extra 500 mg PO Q4-6H 07/31/17 07/31/17 Unknown History Strength] amLODIPine [Norvasc] 5 mg PO DAILY 07/31/17 07/31/17 Unknown History Active Meds: Active Medications Acetaminophen (Tylenol) 650 mg PO Q4H PRN PRN Reason: Pain MILD(1-3)/Fever >100.5/HURD Albuterol (Proventil) 2.5 mg IH Q4HRT PRN PRN Reason: Shortness Of Breath Amlodipine Besylate (Norvasc) 5 mg PO DAILY [facility] Last Admin: 08/02/17 09:22 Dose: 5 mg Bisacodyl (Dulcolax) 10 mg [place] QDAY PRN PRN Reason: Constipation unrelieved by MOM Cyanocobalamin (Vitamin B-12) 1,000 mcg IM ONCE ONE Stop: 08/02/17 15:01 Cyclobenzaprine HCl (Flexeril) 10 mg PO TID PRN PRN Reason: Muscle Spasm Last Admin: 08/01/17 00:57 Dose: 10 mg Hydralazine HCl (Apresoline) 5 mg IV Q6H PRN PRN Reason: Hypertension Last Admin: 08/02/17 05:36 Dose: 5 mg Magnesium Hydroxide (Milk Of Magnesia) 30 ml PO Q4H PRN PRN Reason: Constipation Magnesium Oxide (Mag-Ox) 400 mg PO QDAY [facility] Last Admin: 08/02/17 09:22 Dose: 400 mg Morphine Sulfate (Morphine) 2 mg IV Q4H PRN PRN Reason: Pain, Moderate (4-6) Last Admin: 08/02/17 09:27 Dose: 2 mg Ondansetron HCl (Zofran) 4 mg IV Q8H PRN PRN Reason: N/V unrelieved by Reglan Oxycodone HCl (Roxicodone) 5 mg PO Q6H PRN PRN Reason: Pain, Moderate (4-6) Last Admin: 08/01/17 15:05 Dose: 5 mg Oxycodone/Acetaminophen (Percocet 5/325) 1 tab PO Q6H PRN PRN Reason: Pain, Moderate (4-6) Last Admin: 08/01/17 21:45 Dose: 1 tab Exam - Constitutional Vitals: Last Vital Signs Temp 98.4 F 08/02/17 11:50 Pulse 114 H 08/02/17 11:50 Resp 20 08/02/17 11:50 BP 156/104 08/02/17 11:50 Pulse Ox 97 08/02/17 11:50 Results - Labs lab Results: Laboratory Results - last 24 hr 08/02/17 08/02/17 06:17 06:17 WBC 7.1 RBC 4.15 Hgb 10.8 L Hct 33.1 L MCV 80 L MCH 26 L MCHC 33 RDW 17.1 H Plt Count 401 Lymph % (Auto) 5.0 L [place] % (Auto) 8.7 H Eos % (Auto) 2.7 Baso % (Auto) 0.4 Lymph # 0.4 L [place] # 0.6 Eos # 0.2 Baso # 0.0 Seg Neutrophils % 83.2 H Seg Neutrophils # 5.9 Sodium 137 Potassium 3.2 L Chloride 91.0 L Carbon Dioxide 27 Anion Gap 22 BUN 6 L Creatinine 0.2 L Estimated GFR > 60 BUN/Creatinine Ratio 30 Glucose 96 Calcium 9.4 Magnesium 1.60 L Total Bilirubin 0.70 Direct Bilirubin < 0.2 AST 9 ALT < 5 L Alkaline Phosphatase 283 H Total Protein 7.5 Albumin 3.5 L Albumin/Globulin Ratio 0.9
[2017-08-02 13:57] LABS: INR 1.05 (0.87-1.13)
[2017-08-02 13:58] LABS: Partial Thromboplastin Time 30.7 Sec. (24.2-36.6)
[2017-08-02] MEDS ORDERED: K-DUR PO ONE (14:00)
[2017-08-02] MEDS ORDERED: VITAMIN B-12 IM ONE (15:00)
--- NOTE | 2017-08-02 15:28 | Ultrasound Report ---
ULTRASOUND CHEST History: Left pleural effusion Findings: This examination was scheduled to be an ultrasound guided left thoracentesis. Transabdominal grayscale imaging of the left side of the chest demonstrates no evidence for pleural fluid. Thoracentesis was not performed. Impression: No significant left pleural effusion is identified.
--- NOTE | 2017-08-02 16:49 | Progress Note ---
Assessment and Plan Assessment and Plan Assessment and plan: --Acute respiratory failure with hypoxia; Oxygen titrated O2 sats more than 90%, nebulizers, but if --History of metastatic lung cancer; Continue supportive care, pulmonary and oncology consultation --Extensive bone metastases; Supportive care with pain medications, , Consulted Dr. SORTO --Severe Hypokalemia; replenish per protocol and monitor levels --Hypomagnesemia; the patient is a protocol monitor levels --Possible Malignant pleural effusion on CT scan; pulmonary evaluation Ultrasound-guided thoracentesis if needed --DVT prophylaxis; Lovenox --Full CODE STATUS Closely monitor the patient and adjust management as needed Subjective Date of service: 08/02/17 Principal diagnosis: Lung Ca with mets Interval history: Sx better Objective - Constitutional Vitals: Vital Signs - 12hr 08/02/17 08/02/17 08:13 11:50 Temperature 97.5 F L 98.4 F Pulse Rate 117 H 114 H Respiratory 20 20 Rate Blood Pressure 182/117 156/104 O2 Sat by Pulse 98 97 Oximetry General appearance: Present: no acute distress, well-nourished - EENT Eyes: PERRL, EOM intact ENT: hearing intact, clear oral mucosa Ears: bilateral: normal - Neck Neck: supple, normal ROM - Respiratory Respiratory effort: normal Respiratory: bilateral: CTA - Breasts Breasts: normal - Cardiovascular Rhythm: regular Heart Sounds: Present: S1 & S2. Absent: gallop, rub Extremities: pulses intact, No edema, normal color, Full ROM - Gastrointestinal General gastrointestinal: Present: soft, non-tender, non-distended, normal bowel sounds - Genitourinary Male genitourinary: normal - Integumentary Integumentary: clear, warm, dry - Musculoskeletal Musculoskeletal: 1, strength equal bilaterally - Neurologic Neurologic: moves all extremities - Psychiatric Psychiatric: memory intact, appropriate mood/affect, intact judgment & insight - Labs CBC & Chem 7: 08/02/17 06:17 08/02/17 06:17 Labs: Abnormal lab results 08/02/17 08/02/17 Range/Units 06:17 06:17 Hgb 10.8 L (11.8-15.2) gm/dl Hct 33.1 L (35.5-45.6) % MCV 80 L (84-94) fl MCH 26 L (28-32) pg RDW 17.1 H (13.2-15.2) % Lymph % (Auto) 5.0 L (13.4-35.0) % [place] % (Auto) 8.7 H (0.0-7.3) % Lymph # 0.4 L (1.2-5.4) K/mm3 Seg Neutrophils % 83.2 H (40.0-70.0) % Potassium 3.2 L (3.6-5.0) mmol/L Chloride 91.0 L (98-107) mmol/L BUN 6 L (9-20) mg/dL Creatinine 0.2 L (0.8-1.5) mg/dL Magnesium 1.60 L (1.7-2.3) mg/dL ALT < 5 L (7-56) units/L Alkaline Phosphatase 283 H (35-129) units/L Albumin 3.5 L (3.9-5) g/dL
--- NOTE | 2017-08-02 16:58 | Consultation ---
REFERRING PHYSICIAN: ____ REASON FOR CONSULTATION: Lungs CA. HISTORY OF PRESENT ILLNESS: The patient is a 66-year-old male who in 06/2016 was diagnosed with lung cancer. He had according to ____ had an adenocarcinoma. He had a loculated pleural effusion requiring surgery. He also received radiation therapy to the left chest wall for pain. According to ____ he did not want any chemotherapy. He presented to the hospital now with evidence of feeling weak and dizzy. His symptoms were getting worse, does present to the hospital where he underwent a CT of the chest. His CT chest showed evidence of progression of disease in the chest compared to 06/2016. He has bony mets now, numerous all over the thoracic spine, bilateral ribs, left scapular, multiple risk contractures. He also has bilateral pleural effusions, which have improved from the past. There was consolidation of the left lower lobe. The superimposed pneumonia could not be old. There were also 2 masses in the right lower lobe measuring 1.7 and 1.6 cm and a solitary new 5 mm nodule noted in the posterior right upper lobe. The patient also underwent CT of the head, which did not show any evidence of metastatic disease. Hematology/oncology consult was called to the hospital today. PHYSICAL EXAMINATION: GENERAL: The patient is awake and oriented. HEENT: Unremarkable. CHEST: Decreased breath sounds on the left lung. CARDIOVASCULAR: Regular rate. ABDOMEN: Soft. EXTREMITIES: Lower extremities, mild edema. LABORATORY DATA: The patient's hemoglobin is 10.8, platelets of 401, white count is 7.1. The patient's calcium is 9.4, alkaline phosphatase is 283. ASSESSMENT: 1. Adenocarcinoma of the lung with significant back pain, now progressive disease to the bones. 2. The patient has never received chemotherapy. 3. The patient received radiation therapy in the past. PLAN: At this time, we will try to get records from [facility]. The patient may benefit from palliative chemotherapy, but I would look at his pathology, etc. Because of her back pain, we will order an MRI of the back to assess the extent of disease, etc. We will follow. JOB# [id number] GKS/NTS
[2017-08-02] MEDS: ROXICODONE PO PRN (20:48)
[2017-08-03] MEDS: MORPHINE IV PRN (00:35)
[2017-08-03] MEDS: FLEXERIL PO PRN (03:35)
[2017-08-03] MEDS: PERCOCET 5/325 PO PRN (03:37)
[2017-08-03] MEDS ORDERED: ATIVAN IV SCH (06:00)
--- NOTE | 2017-08-03 08:49 | Hem/Onc Progress Note ---
Assessment and Plan Follow-up on the MRI. I have reviewed his old records. Patient has never had chemotherapy. He received radiation therapy last year. I have discussed with the patient that he may be a candidate for palliative chemotherapy. Upon discharge I would like to see him for follow-up in the patient wants to do the same. Subjective Date of service: 08/03/17 Interval history: Patient feels a little better. His back pain is improved. He is to get an MRI of the spine today. Ultrasound of the thorax did not reveal enough fluid to be tapped. Objective - Constitutional Vitals: Last Vital Signs Temp 98.2 F 08/03/17 07:39 Pulse 116 H 08/03/17 07:39 Resp 20 08/03/17 07:39 BP 157/107 08/03/17 07:39 Pulse Ox 95 08/03/17 07:39 Pain Intensity (0-10): 2/10 General appearance: mild distress Performance status: 3-limited selfcare - Neck Neck: supple - Respiratory Respiratory effort: Positive: normal Respiratory: bilateral: diminished - Cardiovascular Rhythm: regular - Gastrointestinal General gastrointestinal: Present: soft - Labs Lab Results: Laboratory Results - last 24 hr 08/02/17 13:18 PT 14.2 INR 1.05 APTT 30.7
[2017-08-03] MEDS: NORVASC PO SCH (11:58)
[2017-08-03] MEDS: MAG-OX PO SCH (11:58)
[2017-08-03] MEDS ORDERED: ATIVAN IV NR (14:15)
--- NOTE | 2017-08-03 14:19 | Progress Note ---
Assessment and Plan --Acute respiratory failure with hypoxia (resolved) Oxygen titrated O2 sats more than 90% Prn bronchodilators Supplemental oxygen as needed to keep O2 sats>88% VTE porphylaxsis --History of metastatic lung cancer s/p left lower lobe lobectomy Continue supportive care Pain management Oncology consult --Extensive bone metastases; Supportive care with pain medications --Severe Hypokalemia; replenish per protocol and monitor levels --Hypomagnesemia; the patient is a protocol monitor levels --Possible Malignant pleural effusion on CT scan- the scans do not show any effusion, rather a complaex infiltrate. Will get ultrasound of the left chest and then make further recommendations/ management decisions Subjective Date of service: 08/03/17 Objective Vital Signs - 12hr 08/03/17 08/03/17 04:34 07:39 Temperature 97.8 F 98.2 F Pulse Rate 118 H 116 H Respiratory 20 20 Rate Blood Pressure 151/105 157/107 O2 Sat by Pulse 93 95 Oximetry Constitutional: no acute distress, other (tacypnic) Eyes: non-icteric ENT: oropharynx moist Neck: supple, no lymphadenopathy, no JVD Effort: mildly labored Ascultation: Bilateral: diminished breath sounds Cardiovascular: regular rate and rhythm, other (S1,S2, no murmurs, gallops or rubs) Gastrointestinal: normoactive bowel sounds, soft, non-tender Integumentary: normal, other (Left chest wall scar) Extremities: no cyanosis, no edema, pink and warm, pulses normal, no ischemia or petechiae Neurologic: normal mental status, non-focal exam, pupils equal and round, CN II- XII normal, motor strength normal and Psychiatric: mood appropriate, affect normal CBC and BMP: 08/02/17 06:17 08/02/17 06:17 ABG, PT/INR, D-dimer: PT/INR, D-dimer PT 14.2 Sec. (12.2-14.9) 08/02/17 13:18 INR 1.05 (0.87-1.13) 08/02/17 13:18 Abnormal lab findings: Abnormal Labs 07/31/17 07/31/17 07/31/17 12:09 12:09 12:09 Hgb 10.2 L Hct 31.6 L MCV 80 L MCH 26 L RDW 16.9 H Lymph % (Auto) [place] % (Auto) Lymph # Seg Neutrophils % Potassium 2.9 L* Chloride 96.2 L BUN Creatinine 0.4 L Glucose 104 H Magnesium ALT < 5 L Alkaline Phosphatase 279 H Albumin 3.3 L 08/01/17 08/02/17 08/02/17 10:42 06:17 06:17 Hgb 10.8 L Hct 33.1 L MCV 80 L MCH 26 L RDW 17.1 H Lymph % (Auto) 5.0 L [place] % (Auto) 8.7 H Lymph # 0.4 L Seg Neutrophils % 83.2 H Potassium 3.1 L 3.2 L Chloride 91.0 L BUN 6 L Creatinine 0.2 L Glucose Magnesium 1.60 L 1.60 L ALT < 5 L Alkaline Phosphatase 283 H Albumin 3.5 L
--- NOTE | 2017-08-03 15:18 | Cat Scan Report ---
FINAL REPORT PROCEDURE: CT CERVICAL SPINE WO CON TECHNIQUE: Computerized tomography of the cervical spine was performed without contrast material. HISTORY: Mets COMPARISON: CT cervical spine 07/31/2017 FINDINGS: Again seen is abnormal sclerosis of the right half of C1 and the left occipital condyle. Again seen is lucency suggestive of metastatic disease of the C2, C6, C7, and T1 vertebral bodies. Lucency extends into left pedicle of T1 as well as abnormal lucency seen of the proximal left 1st and 2nd ribs and T1 transverse process. There is no CT evident epidural mass which would be better evaluated with MRI. There is no subluxation. Multilevel degenerative changes are again noted. IMPRESSION: Re-identified metastatic disease to bone and degenerative changes. Consider if no contraindications exist, MRI with and without contrast to most sensitively evaluate for intraspinal/neural foraminal extension of disease..
--- NOTE | 2017-08-03 15:39 | Cat Scan Report ---
FINAL REPORT PROCEDURE: CT THORACIC SPINE WO CON TECHNIQUE: Axial sections and coronal and sagittal reformatted images were viewed through the thoracic spine. HISTORY: Mets COMPARISON: None FINDINGS: Pulmonary emphysema is present as well as prior granulomatous exposure to the bilateral lungs. Consolidation is partially included in the field of view of the left lower lobe. Prior left posterior thoracotomy is suspected. Diffuse lytic lesions are present scattered throughout basically all vertebral segments. Lucency is worst of the left aspect of the T7 vertebral body which is compressed with extension into the pedicle and proximal lamina. Compression to a lesser extent is also seen of the T4 vertebral body. Extension into the left pedicle and transverse process is present as well as to the adjacent rib at this level. There is no gross intraspinal soft tissue mass. Mild degenerative changes of the spine are seen. IMPRESSION: Extensive metastatic disease to bone as described. Consider if no contraindications exist, follow-up with MRI with and without contrast to most sensitively evaluate for intraspinal/neural foraminal extension of disease. Pulmonary emphysema. Superimposed granulomatous exposure. Suspect prior left posterior thoracotomy and partial consolidation of the left lower lobe.
--- NOTE | 2017-08-03 16:01 | Cat Scan Report ---
FINAL REPORT PROCEDURE: CT LUMBAR SPINE WO CON TECHNIQUE: Axial sections and coronal and sagittal reformatted images were viewed through the lumbar spine. HISTORY: Mets COMPARISON: None FINDINGS: Diffuse metastatic disease to bone is present most conspicuously of the included T11 and T12 vertebral segments to include the pedicles and proximal left transverse process of T11 as well as significantly diffuse of the L1 vertebral body and right worse than left L1 pedicle. Prominent metastatic disease to the left aspect of the L3 vertebral body is present. There is no definite intraspinal extension of disease. There is no subluxation. Multilevel degenerative changes are present. IMPRESSION: Extensive metastatic disease to bone. Mild degenerative changes. Consider most sensitive evaluation particularly to exclude central canal/neural foraminal extension of disease with MRI with and without contrast
--- NOTE | 2017-08-03 17:37 | Progress Note ---
Subjective Date of service: 08/03/17 Objective - Constitutional Vitals: Vital Signs - 12hr 08/03/17 08/03/17 08/03/17 07:39 15:54 15:58 Temperature 98.2 F 98.1 F Pulse Rate 116 H 128 H Respiratory 20 19 Rate Blood Pressure 157/107 151/81 O2 Sat by Pulse 95 93 95 Oximetry - Labs CBC & Chem 7: 08/02/17 06:17 08/02/17 06:17
--- NOTE | 2017-08-03 18:56 | Event Note ---
Date: 08/03/17 ct findings noted d/w xrt- will start decadron bed rest follow neuro checks
[2017-08-03] MEDS: APRESOLINE IV PRN (20:46)
[2017-08-04] MEDS: DECADRON IV SCH ×5 (02:06→23:07)
[2017-08-04] MEDS: ROXICODONE PO PRN (04:45)
[2017-08-04] MEDS: APRESOLINE IV PRN (05:29)
--- NOTE | 2017-08-04 06:53 | Hem/Onc Progress Note ---
Assessment and Plan 1- metastatic lung cancer with bone mets and involvement of the vertebrae. Dr Kern discussed case with radiation oncology and plan is to start radiation on sunday. Pt was started on julad yesterday. neurologically stable. continue to monitor and start xrt on sunday Subjective Date of service: 08/04/17 Interval history: feels better. pain is under control. no weakness in his legs. Objective - Constitutional Vitals: Last Vital Signs Temp 97.7 F 08/04/17 04:16 Pulse 122 H 08/04/17 05:29 Resp 16 08/04/17 04:16 BP 167/105 08/04/17 05:29 Pulse Ox 96 08/04/17 04:16 General appearance: no acute distress - Respiratory Respiratory: bilateral: CTA - Cardiovascular Rhythm: regular Heart Sounds: Present: S1 & S2 Extremities: no ischemia, No edema - Gastrointestinal General gastrointestinal: Present: soft - Neurologic Neurologic: moves all extremities, other
[2017-08-04] MEDS: MAG-OX PO SCH (09:59)
[2017-08-04] MEDS: NORVASC PO SCH (10:00)
--- NOTE | 2017-08-04 12:25 | Progress Note ---
Assessment and Plan Acute respiratory failure with hypoxia Lung Cancer s/p LLLobectomy Metastatic Lung CA (Bone mets) Hypokalemia LLL pneumonia vs Atelectasis (LLL process appears chronic and he is clinically improving) - supplemental oxygen to keep sats > 90% - continue bronchodilators and pulmonary toilet - prn BIPAP if decompensates - repeat BMP in am re: hypokalemia - prn analgesia - utility of bronchoscopy unclear in setting of known metastatic disease (ifr clinically significant increase in atelectasis then perhaps for airway clearance ) - continue other care per attending / other consultants ....25' Subjective Date of service: 08/04/17 Principal diagnosis: Acute Hypoxemic Resp Failure; Pneumonia; Metastatic Lung CA Interval history: Patient is seen today for: Acute Hypoxemic Resp Failure; Pneumonia; Metastatic Lung CA; s/p Left Lower lobectomy Seen and examined at bedside; 24hour events reviewed; nursing and respiratory care staff consulted; no adverse overnight events reported to me; feels a little better; denies gross or streaky hemoptysis; tentatively to begin XRT on Objective Vital Signs - 12hr 08/04/17 08/04/17 08/04/17 04:16 05:29 08:07 Temperature 97.7 F 98.1 F Pulse Rate 122 H 122 H 118 H Respiratory 16 20 Rate Blood Pressure 167/105 167/105 138/99 O2 Sat by Pulse 96 99 Oximetry 08/04/17 10:00 Temperature Pulse Rate 110 H Respiratory Rate Blood Pressure 133/89 O2 Sat by Pulse Oximetry Constitutional: no acute distress, appears uncomfortable Eyes: non-icteric ENT: oropharynx moist, other (mallampatti !! oropharynx) Neck: supple, no lymphadenopathy, no JVD Effort: mildly labored Ascultation: Bilateral: diminished breath sounds, rhonchi (scant bilaterally) Percussion: Left: not dull (base) Cardiovascular: regular rate and rhythm, other (S1,S2, no murmurs, gallops or rubs) Gastrointestinal: normoactive bowel sounds, soft, non-tender Integumentary: normal, other (Left chest wall scar) Extremities: no cyanosis, no edema, pink and warm, pulses normal, no ischemia or petechiae Neurologic: normal mental status, non-focal exam, pupils equal and round, CN II- XII normal, motor strength normal and, other (No HSM) Psychiatric: mood appropriate, affect normal CBC and BMP: 08/02/17 06:17 08/02/17 06:17 ABG, PT/INR, D-dimer: PT/INR, D-dimer PT 14.2 Sec. (12.2-14.9) 08/02/17 13:18 INR 1.05 (0.87-1.13) 08/02/17 13:18 Abnormal lab findings: Abnormal Labs 07/31/17 07/31/17 07/31/17 12:09 12:09 12:09 Hgb 10.2 L Hct 31.6 L MCV 80 L MCH 26 L RDW 16.9 H Lymph % (Auto) [place] % (Auto) Lymph # Seg Neutrophils % Potassium 2.9 L* Chloride 96.2 L BUN Creatinine 0.4 L Glucose 104 H Magnesium ALT < 5 L Alkaline Phosphatase 279 H Albumin 3.3 L 08/01/17 08/02/17 08/02/17 10:42 06:17 06:17 Hgb 10.8 L Hct 33.1 L MCV 80 L MCH 26 L RDW 17.1 H Lymph % (Auto) 5.0 L [place] % (Auto) 8.7 H Lymph # 0.4 L Seg Neutrophils % 83.2 H Potassium 3.1 L 3.2 L Chloride 91.0 L BUN 6 L Creatinine 0.2 L Glucose Magnesium 1.60 L 1.60 L ALT < 5 L Alkaline Phosphatase 283 [address] Albumin 3.[address] scan - chest: image reviewed (LLL pleural thickning + subsegmental consolidation + small effusion)
--- NOTE | 2017-08-04 15:00 | Progress Note ---
Assessment and Plan Assessment and Plan Assessment and plan: Assessment and Plan 1- metastatic lung cancer with bone mets and involvement of the vertebrae. Dr Kern discussed case with radiation oncology and plan is to start radiation on sunday. Pt was started on juladron yesterday. neurologically stable. continue to monitor and start xrt on sunday --Acute respiratory failure with hypoxia; Oxygen titrated O2 sats more than 90%, nebulizers, but if --History of metastatic lung cancer; Continue supportive care, pulmonary and oncology consultation --Extensive bone metastases; Supportive care with pain medications, , Consulted DrNitza PM - Hypokalemia corrected replenish per protocol and monitor levels --Hypomagnesemia; the patient is a protocol monitor levels --Possible Malignant pleural effusion on CT scan; pulmonary evaluation Ultrasound-guided thoracentesis if needed --DVT prophylaxis; Lovenox --Full CODE STATUS Closely monitor the patient and adjust management as needed Subjective Date of service: 08/04/17 Principal diagnosis: Lung Ca with mets Interval history: Sx better Objective - Constitutional Vitals: Vital Signs - 12hr 08/04/17 08/04/17 08/04/17 04:16 05:29 08:07 Temperature 97.7 F 98.1 F Pulse Rate 122 H 122 H 118 H Respiratory 16 20 Rate Blood Pressure 167/105 167/105 138/99 O2 Sat by Pulse 96 99 Oximetry 08/04/17 10:00 Temperature Pulse Rate 110 H Respiratory Rate Blood Pressure 133/89 O2 Sat by Pulse Oximetry General appearance: Present: no acute distress, well-nourished - EENT Eyes: PERRL, EOM intact ENT: hearing intact, clear oral mucosa Ears: bilateral: normal - Neck Neck: supple, normal ROM - Respiratory Respiratory effort: normal Respiratory: bilateral: CTA - Breasts Breasts: normal - Cardiovascular Rhythm: regular Heart Sounds: Present: S1 & S2. Absent: gallop, rub Extremities: pulses intact, No edema, normal color, Full ROM - Gastrointestinal General gastrointestinal: Present: soft, non-tender, non-distended, normal bowel sounds - Genitourinary Male genitourinary: normal - Integumentary Integumentary: clear, warm, dry - Musculoskeletal Musculoskeletal: 1, strength equal bilaterally - Neurologic Neurologic: moves all extremities - Psychiatric Psychiatric: memory intact, appropriate mood/affect, intact judgment & insight - Labs CBC & Chem 7: 08/02/17 06:17 08/02/17 06:17
[2017-08-04] MEDS: MORPHINE IV PRN ×2 (17:24→23:38)
[2017-08-05] MEDS: APRESOLINE IV PRN ×2 (04:05→09:43)
[2017-08-05] MEDS: MORPHINE IV PRN ×4 (04:06→20:32)
[2017-08-05] MEDS: DECADRON IV SCH ×3 (05:07→17:17)
--- NOTE | 2017-08-05 08:37 | Hem/Onc Progress Note ---
Assessment and Plan 1- metastatic lung cancer with bone mets and involvement of the vertebrae. Stable neurologically. continue to monitor and start xrt on sunday Subjective Date of service: 08/05/17 Interval history: No complaints. walked Objective - Constitutional Vitals: Last Vital Signs Temp 98.1 F 08/05/17 07:29 Pulse 114 H 08/05/17 07:29 Resp 20 08/05/17 07:29 BP 172/108 08/05/17 07:29 Pulse Ox 97 08/05/17 07:29 General appearance: no acute distress - EENT Eyes: PERRL - Musculoskeletal Musculoskeletal: strength equal bilaterally - Neurologic Neurologic: moves all extremities
--- NOTE | 2017-08-05 08:56 | Progress Note ---
Assessment and Plan Assessment and plan: --metastatic lung cancer with bone mets and involvement of the vertebrae. Dr Kern discussed case with radiation oncology and plan is to start radiation on sunday. Pt was started on decadron. neurologically stable. continue to monitor and start xrt on sunday --Acute respiratory failure with hypoxia; Oxygen titrated O2 sats more than 90%, nebulizers, but if --History of metastatic lung cancer; Continue supportive care, pulmonary and oncology consultation --Extensive bone metastases. As above - Hypokalemia corrected replenish per protocol and monitor levels --Hypomagnesemia; the patient is a protocol monitor levels --Possible Malignant pleural effusion on CT scan; pulmonary evaluation Ultrasound-guided thoracentesis if needed --DVT prophylaxis; Lovenox --Full CODE STATUS Closely monitor the patient and adjust management as needed History Interval history: no new issues overnight Hospitalist Physical - Constitutional Vitals: Temp Pulse Resp BP Pulse Ox 98.1 F 114 H 20 172/108 97 08/05/17 07:29 08/05/17 07:29 08/05/17 07:29 08/05/17 07:29 08/05/17 07:29 General appearance: Present: no acute distress, well-nourished - EENT Eyes: Present: PERRL, EOM intact ENT: hearing intact, clear oral mucosa, dentition normal - Neck Neck: Present: supple, normal ROM - Respiratory Respiratory effort: normal Respiratory: bilateral: CTA - Cardiovascular Rhythm: regular Heart Sounds: Present: S1 & S2. Absent: gallop, rub - Extremities Extremities: no ischemia, No edema, Full ROM - Abdominal General gastrointestinal: soft, non-tender, non-distended, normal bowel sounds - Integumentary Integumentary: Present: clear, warm, dry - Neurologic Neurologic: CNII-XII intact, moves all extremities Results - Labs CBC & Chem 7: 08/02/17 06:17 08/02/17 06:17 Labs: Laboratory Last Values WBC 7.1 K/mm3 (4.5-11.0) 08/02/17 06:17 RBC 4.15 M/mm3 (3.65-5.03) 08/02/17 06:17 Hgb 10.8 gm/dl (11.8-15.2) L 08/02/17 06:17 Hct 33.1 % (35.5-45.6) L 08/02/17 06:17 MCV 80 fl (84-94) L 08/02/17 06:17 MCH 26 pg (28-32) L 08/02/17 06:17 MCHC 33 % (32-34) 08/02/17 06:17 RDW 17.1 % (13.2-15.2) H 08/02/17 06:17 Plt Count 401 K/mm3 (140-440) 08/02/17 06:17 Lymph % (Auto) 5.0 % (13.4-35.0) L 08/02/17 06:17 [place] % (Auto) 8.7 % (0.0-7.3) H 08/02/17 06:17 Eos % (Auto) 2.7 % (0.0-4.3) 08/02/17 06:17 Baso % (Auto) 0.4 % (0.0-1.8) 08/02/17 06:17 Lymph # 0.4 K/mm3 (1.2-5.4) L 08/02/17 06:17 [place] # 0.6 K/mm3 (0.0-0.8) 08/02/17 06:17 Eos # 0.2 K/mm3 (0.0-0.4) 08/02/17 06:17 Baso # 0.0 K/mm3 (0.0-0.1) 08/02/17 06:17 Seg Neutrophils % 83.2 % (40.0-70.0) H 08/02/17 06:17 Seg Neutrophils # 5.9 K/mm3 (1.8-7.7) 08/02/17 06:17 PT 14.2 Sec. (12.2-14.9) 08/02/17 13:18 INR 1.05 (0.87-1.13) 08/02/17 13:18 APTT 30.7 Sec. (24.2-36.6) 08/02/17 13:18 Sodium 137 mmol/L (137-145) 08/02/17 06:17 Potassium 3.2 mmol/L (3.6-5.0) L 08/02/17 06:17 Chloride 91.0 mmol/L (98-107) L 08/02/17 06:17 Carbon Dioxide 27 mmol/L (22-30) 08/02/17 06:17 Anion Gap 22 mmol/L 08/02/17 06:17 BUN 6 mg/dL (9-20) L 08/02/17 06:17 Creatinine 0.2 mg/dL (0.8-1.5) L 08/02/17 06:17 Estimated GFR > 60 ml/min 08/02/17 06:17 BUN/Creatinine Ratio 30 % 08/02/17 06:17 Glucose 96 mg/dL (75-100) 08/02/17 06:17 Calcium 9.4 mg/dL (8.4-10.2) 08/02/17 06:17 Magnesium 1.60 mg/dL (1.7-2.3) L 08/02/17 06:17 Total Bilirubin 0.70 mg/dL (0.1-1.2) 08/02/17 06:17 Direct Bilirubin < 0.2 mg/dL (0-0.2) 08/02/17 06:17 Indirect Bilirubin 0.2 mg/dL 07/31/17 12:09 AST 9 units/L (5-40) 08/02/17 06:17 ALT < 5 units/L (7-56) L 08/02/17 06:17 Alkaline Phosphatase 283 units/L (35-129) H 08/02/17 06:17 Total Protein 7.5 g/dL (6.3-8.2) 08/02/17 06:17 Albumin 3.5 g/dL (3.9-5) L 08/02/17 06:17 Albumin/Globulin Ratio 0.9 % 08/02/17 06:17 Urine Color Yellow (Yellow) 07/31/17 14:50 Urine Turbidity Clear (Clear) 07/31/17 14:50 Urine pH 5.0 (5.0-7.0) 07/31/17 14:50 Ur Specific [place] 1.028 (1.003-1.030) 07/31/17 14:50 Urine Protein 30 mg/dl mg/dL (Negative) 07/31/17 14:50 Urine Glucose (UA) Neg mg/dL (Negative) 07/31/17 14:50 Urine Ketones Neg mg/dL (Negative) 07/31/17 14:50 Urine Blood Neg (Negative) 07/31/17 14:50 Urine Nitrite Neg (Negative) 07/31/17 14:50 Urine Bilirubin Neg (Negative) 07/31/17 14:50 Urine Urobilinogen 4.0 mg/dL (<2.0) 07/31/17 14:50 Ur Leukocyte Esterase Neg (Negative) 07/31/17 14:50 Urine WBC (Auto) 4.0 /HPF (0.0-6.0) 07/31/17 14:50 Urine RBC (Auto) 1.0 /HPF (0.0-6.0) 07/31/17 14:50 U Epithel Cells (Auto) < 1.0 /HPF (0-13.0) 07/31/17 14:50 Urine Mucus 2+ /HPF 07/31/17 14:50
[2017-08-05] MEDS: MAG-OX PO SCH (09:43)
[2017-08-05] MEDS: NORVASC PO SCH (09:43)
--- NOTE | 2017-08-05 17:59 | Progress Note ---
Assessment and Plan Acute respiratory failure with hypoxia Lung Cancer s/p LLLobectomy Metastatic Lung CA (Bone mets) Hypokalemia LLL pneumonia vs Atelectasis (LLL process appears chronic and he is clinically improving) - continue supplemental oxygen to keep sats > 90% - continue bronchodilators and pulmonary toilet - prn BIPAP if decompensates - prn analgesia - utility of bronchoscopy unclear in setting of known metastatic disease (if clinically significant increase in atelectasis then perhaps for airway clearance ) - for radiation therapy to begin 08/07/17 - continue other care per attending / other consultants ....25' Subjective Date of service: 08/05/17 Principal diagnosis: Acute Hypoxemic Resp Failure; Pneumonia; Metastatic Lung CA Interval history: Patient is seen today for: Acute Hypoxemic Resp Failure; Pneumonia; Metastatic Lung CA; s/p Left Lower lobectomy Seen and examined at bedside; 24hour events reviewed; nursing and respiratory care staff consulted; no adverse overnight events reported to me; feels a little better; remains on oxygen therapy; still with intermittent chest pains and ORTIZ; denies any hemoptysis Objective Vital Signs - 12hr 08/05/17 08/05/17 07:29 16:24 Temperature 98.1 F 97.5 F L Pulse Rate 114 H 113 H Respiratory 20 20 Rate Blood Pressure 172/108 151/100 O2 Sat by Pulse 97 99 Oximetry Constitutional: no acute distress, appears uncomfortable Eyes: non-icteric ENT: oropharynx moist, other (mallampatti !! oropharynx) Neck: supple, no lymphadenopathy, no JVD Effort: mildly labored Ascultation: Bilateral: diminished breath sounds, rhonchi (scant bilaterally), other (prolonged exp phase) Percussion: Right: dull (base) Cardiovascular: regular rate and rhythm, other (S1,S2, no murmurs, gallops or rubs) Gastrointestinal: normoactive bowel sounds, soft, non-tender Integumentary: normal, other (Left chest wall scar) Extremities: no cyanosis, no edema, pink and warm, pulses normal, no ischemia or petechiae Neurologic: normal mental status, non-focal exam, pupils equal and round, CN II- XII normal, motor strength normal and, other (No HSM) Psychiatric: mood appropriate, affect normal CBC and BMP: 08/07/17 05:29 12/26/17 05:29 ABG, PT/INR, D-dimer: PT/INR, D-dimer PT 14.2 Sec. (12.2-14.9) 08/02/17 13:18 INR 1.05 (0.87-1.13) 08/02/17 13:18 Abnormal lab findings: Abnormal Labs 07/31/17 07/31/17 07/31/17 12:09 12:09 12:09 Hgb 10.2 L Hct 31.6 L MCV 80 L MCH 26 L RDW 16.9 H Lymph % (Auto) [place] % (Auto) Lymph # Seg Neutrophils % Potassium 2.9 L* Chloride 96.2 L BUN Creatinine 0.4 L Glucose 104 H Magnesium ALT < 5 L Alkaline Phosphatase 279 H Albumin 3.3 L 08/01/17 08/02/17 08/02/17 10:42 06:17 06:17 Hgb 10.8 L Hct 33.1 L MCV 80 L MCH 26 L RDW 17.1 H Lymph % (Auto) 5.0 L [place] % (Auto) 8.7 H Lymph # 0.4 L Seg Neutrophils % 83.2 H Potassium 3.1 L 3.2 L Chloride 91.0 L BUN 6 L Creatinine 0.2 L Glucose Magnesium 1.60 L 1.60 L ALT < 5 L Alkaline Phosphatase 283 H Albumin 3.5 L Chest x-ray: image reviewed
[2017-08-05] MEDS: FLEXERIL PO PRN (22:53)
[2017-08-06] MEDS: APRESOLINE IV PRN ×2 (00:10→11:00)
[2017-08-06] MEDS: DECADRON IV SCH ×4 (00:10→17:02)
[2017-08-06] MEDS: MORPHINE IV PRN ×5 (02:06→21:06)
--- NOTE | 2017-08-06 09:35 | Progress Note ---
Assessment and Plan Assessment and plan: --metastatic lung cancer with bone mets and involvement of the vertebrae. Dr Kern discussed case with radiation oncology and plan is to start radiation on sunday. Pt was started on decadron. neurologically stable. continue to monitor and start xrt on sunday --Acute respiratory failure with hypoxia; Oxygen titrated O2 sats more than 90%, nebulizers, but if --History of metastatic lung cancer; Continue supportive care, pulmonary and oncology consultation --Extensive bone metastases. As above - Hypokalemia corrected replenish per protocol and monitor levels --Hypomagnesemia; the patient is a protocol monitor levels --Possible Malignant pleural effusion on CT scan; pulmonary evaluation Ultrasound-guided thoracentesis if needed --DVT prophylaxis; Lovenox --Full CODE STATUS Closely monitor the patient and adjust management as needed History Interval history: no new issues overnight Hospitalist Physical - Constitutional Vitals: Temp Pulse Resp BP Pulse Ox 97.4 F L 109 H 22 171/110 100 08/06/17 08:05 08/06/17 08:05 08/06/17 08:05 08/06/17 08:05 08/06/17 08:05 General appearance: Present: no acute distress, well-nourished - EENT Eyes: Present: PERRL, EOM intact ENT: hearing intact, clear oral mucosa, dentition normal - Neck Neck: Present: supple, normal ROM - Respiratory Respiratory effort: normal Respiratory: bilateral: CTA - Cardiovascular Rhythm: regular Heart Sounds: Present: S1 & S2. Absent: gallop, rub - Extremities Extremities: no ischemia, No edema, Full ROM - Abdominal General gastrointestinal: soft, non-tender, non-distended, normal bowel sounds - Integumentary Integumentary: Present: clear, warm, dry - Neurologic Neurologic: CNII-XII intact, moves all extremities Results - Labs CBC & Chem 7: 08/02/17 06:17 08/02/17 06:17 Labs: Laboratory Last Values WBC 7.1 K/mm3 (4.5-11.0) 08/02/17 06:17 RBC 4.15 M/mm3 (3.65-5.03) 08/02/17 06:17 Hgb 10.8 gm/dl (11.8-15.2) L 08/02/17 06:17 Hct 33.1 % (35.5-45.6) L 08/02/17 06:17 MCV 80 fl (84-94) L 08/02/17 06:17 MCH 26 pg (28-32) L 08/02/17 06:17 MCHC 33 % (32-34) 08/02/17 06:17 RDW 17.1 % (13.2-15.2) H 08/02/17 06:17 Plt Count 401 K/mm3 (140-440) 08/02/17 06:17 Lymph % (Auto) 5.0 % (13.4-35.0) L 08/02/17 06:17 [place] % (Auto) 8.7 % (0.0-7.3) H 08/02/17 06:17 Eos % (Auto) 2.7 % (0.0-4.3) 08/02/17 06:17 Baso % (Auto) 0.4 % (0.0-1.8) 08/02/17 06:17 Lymph # 0.4 K/mm3 (1.2-5.4) L 08/02/17 06:17 [place] # 0.6 K/mm3 (0.0-0.8) 08/02/17 06:17 Eos # 0.2 K/mm3 (0.0-0.4) 08/02/17 06:17 Baso # 0.0 K/mm3 (0.0-0.1) 08/02/17 06:17 Seg Neutrophils % 83.2 % (40.0-70.0) H 08/02/17 06:17 Seg Neutrophils # 5.9 K/mm3 (1.8-7.7) 08/02/17 06:17 PT 14.2 Sec. (12.2-14.9) 08/02/17 13:18 INR 1.05 (0.87-1.13) 08/02/17 13:18 APTT 30.7 Sec. (24.2-36.6) 08/02/17 13:18 Sodium 137 mmol/L (137-145) 08/02/17 06:17 Potassium 3.2 mmol/L (3.6-5.0) L 08/02/17 06:17 Chloride 91.0 mmol/L (98-107) L 08/02/17 06:17 Carbon Dioxide 27 mmol/L (22-30) 08/02/17 06:17 Anion Gap 22 mmol/L 08/02/17 06:17 BUN 6 mg/dL (9-20) L 08/02/17 06:17 Creatinine 0.2 mg/dL (0.8-1.5) L 08/02/17 06:17 Estimated GFR > 60 ml/min 08/02/17 06:17 BUN/Creatinine Ratio 30 % 08/02/17 06:17 Glucose 96 mg/dL (75-100) 08/02/17 06:17 Calcium 9.4 mg/dL (8.4-10.2) 08/02/17 06:17 Magnesium 1.60 mg/dL (1.7-2.3) L 08/02/17 06:17 Total Bilirubin 0.70 mg/dL (0.1-1.2) 08/02/17 06:17 Direct Bilirubin < 0.2 mg/dL (0-0.2) 08/02/17 06:17 Indirect Bilirubin 0.2 mg/dL 07/31/17 12:09 AST 9 units/L (5-40) 08/02/17 06:17 ALT < 5 units/L (7-56) L 08/02/17 06:17 Alkaline Phosphatase 283 units/L (35-129) H 08/02/17 06:17 Total Protein 7.5 g/dL (6.3-8.2) 08/02/17 06:17 Albumin 3.5 g/dL (3.9-5) L 08/02/17 06:17 Albumin/Globulin Ratio 0.9 % 08/02/17 06:17 Urine Color Yellow (Yellow) 07/31/17 14:50 Urine Turbidity Clear (Clear) 07/31/17 14:50 Urine pH 5.0 (5.0-7.0) 07/31/17 14:50 Ur Specific [place] 1.028 (1.003-1.030) 07/31/17 14:50 Urine Protein 30 mg/dl mg/dL (Negative) 07/31/17 14:50 Urine Glucose (UA) Neg mg/dL (Negative) 07/31/17 14:50 Urine Ketones Neg mg/dL (Negative) 07/31/17 14:50 Urine Blood Neg (Negative) 07/31/17 14:50 Urine Nitrite Neg (Negative) 07/31/17 14:50 Urine Bilirubin Neg (Negative) 07/31/17 14:50 Urine Urobilinogen 4.0 mg/dL (<2.0) 07/31/17 14:50 Ur Leukocyte Esterase Neg (Negative) 07/31/17 14:50 Urine WBC (Auto) 4.0 /HPF (0.0-6.0) 07/31/17 14:50 Urine RBC (Auto) 1.0 /HPF (0.0-6.0) 07/31/17 14:50 U Epithel Cells (Auto) < 1.0 /HPF (0-13.0) 07/31/17 14:50 Urine Mucus 2+ /HPF 07/31/17 14:50
--- NOTE | 2017-08-06 09:46 | Hem/Onc Progress Note ---
Assessment and Plan 1- metastatic lung cancer with bone mets and involvement of the vertebrae. Stable neurologically. radiation tomorrow. Dr Mcarthur covering for Dr Kern as of tomorrow. Subjective Date of service: 08/06/17 Interval history: No complaints. no change in strength. back pain is stable. Objective - Constitutional Vitals: Last Vital Signs Temp 97.4 F L 08/06/17 08:05 Pulse 109 H 08/06/17 08:05 Resp 22 08/06/17 08:05 BP 171/110 08/06/17 08:05 Pulse Ox 100 08/06/17 08:05 General appearance: no acute distress - EENT Eyes: PERRL ENT: hearing intact - Respiratory Respiratory: bilateral: CTA - Cardiovascular Rhythm: regular Heart Sounds: Present: S1 & S2 - Neurologic Neurologic: moves all extremities
[2017-08-06] MEDS: NORVASC PO SCH (10:01)
[2017-08-06] MEDS: MAG-OX PO SCH (10:01)
--- NOTE | 2017-08-06 12:41 | Progress Note ---
Assessment and Plan Acute respiratory failure with hypoxia Lung Cancer s/p LLLobectomy Metastatic Lung CA (Bone mets) Hypokalemia LLL pneumonia vs Atelectasis (LLL process is chronic and he is clinically improving) - continue supplemental oxygen to keep sats > 90% - continue bronchodilators and pulmonary toilet - prn BIPAP if decompensates - prn analgesia - utility of bronchoscopy unclear in setting of known metastatic disease (if clinically significant increase in atelectasis then perhaps for airway clearance ) - for radiation therapy to begin 08/07/17 - continue other care per attending / other consultants ....25' Subjective Date of service: 08/06/17 Principal diagnosis: Acute Hypoxemic Resp Failure; Pneumonia; Metastatic Lung CA Interval history: Patient is seen today for: Acute Hypoxemic Resp Failure; Pneumonia; Metastatic Lung CA; s/p Left Lower lobectomy Seen and examined at bedside; 24hour events reviewed; nursing and respiratory care staff consulted; no adverse overnight events reported to me; feels a little better; remains on oxygen therapy; no new issues respiratory-jiménez; " which doctor is doing my radiation" Objective Vital Signs - 12hr 08/06/17 08/06/17 04:17 08:05 Temperature 97.7 F 97.4 F L Pulse Rate 111 H 109 H Respiratory 22 22 Rate Blood Pressure 167/115 171/110 O2 Sat by Pulse 99 100 Oximetry Constitutional: alert, appears uncomfortable Eyes: non-icteric ENT: oropharynx moist, other (mallampatti 2 oropharynx) Neck: supple, no lymphadenopathy, no JVD, other (no thyromegaly) Effort: mildly labored Ascultation: Left: diminished breath sounds (base), Bilateral: rhonchi (scant ) Percussion: Left: not dull (base) Cardiovascular: regular rate and rhythm, other (S1,S2, no murmurs, gallops or rubs) Gastrointestinal: normoactive bowel sounds, soft, non-tender, other (No palpable HSM) Integumentary: normal, other (Left chest wall scar) Extremities: no cyanosis, no edema, pulses normal, no ischemia or petechiae Neurologic: normal mental status, non-focal exam, pupils equal and round, CN II- XII normal, motor strength normal and, other (No HSM) Psychiatric: mood appropriate, affect normal CBC and BMP: 08/07/17 05:29 08/07/17 05:29 ABG, PT/INR, D-dimer: PT/INR, D-dimer PT 14.2 Sec. (12.2-14.9) 08/02/17 13:18 INR 1.05 (0.87-1.13) 08/02/17 13:18 Abnormal lab findings: Abnormal Labs 07/31/17 07/31/17 07/31/17 12:09 12:09 12:09 Hgb 10.2 L Hct 31.6 L MCV 80 L MCH 26 L RDW 16.9 H Lymph % (Auto) [place] % (Auto) Lymph # Seg Neutrophils % Potassium 2.9 L* Chloride 96.2 L BUN Creatinine 0.4 L Glucose 104 H Magnesium ALT < 5 L Alkaline Phosphatase 279 H Albumin 3.3 L 08/01/17 08/02/17 08/02/17 10:42 06:17 06:17 Hgb 10.8 L Hct 33.1 L MCV 80 L MCH 26 L RDW 17.1 H Lymph % (Auto) 5.0 L [place] % (Auto) 8.7 H Lymph # 0.4 L Seg Neutrophils % 83.2 H Potassium 3.1 L 3.2 L Chloride 91.0 L BUN 6 L Creatinine 0.2 L Glucose Magnesium 1.60 L 1.60 L ALT < 5 L Alkaline Phosphatase 283 H Albumin 3.5 L
[2017-08-07] MEDS: DECADRON IV SCH ×4 (00:57→18:02)
[2017-08-07] MEDS: APRESOLINE IV PRN ×2 (00:57→06:03)
[2017-08-07] MEDS: MORPHINE IV PRN ×6 (00:58→22:13)
[2017-08-07 06:11] LABS: Hematocrit 34.1 % (35.5-45.6); Hemoglobin 10.8 gm/dl (11.8-15.2); Mean Corpuscular HGB Conc 32 % (32-34); Mean Corpuscular Volume 79 fl (84-94); Platelet Count 454 K/mm3 (140-440); Red Blood Count 4.31 M/mm3 (3.65-5.03); Red Cell Distribution Width 16.9 % (13.2-15.2)
[2017-08-07 06:18] LABS: Mean Corpuscular Hemoglobin 25 pg (28-32)
[2017-08-07 06:34] LABS: BUN/Creatinine Ratio 63; Blood Urea Nitrogen 19 mg/dL (9-20); Calcium 9.2 mg/dL (8.4-10.2); Hemolysis Index 26
[2017-08-07 07:45] LABS: Anisocytosis 1+; Basophils % (Manual) 0 % (0.0-1.8); Eosinophils % (Manual) 0 % (0.0-4.3); Hypochromasia 1+; Platelet Estimate Consistent w Auto; Total Cells Counted 100
[2017-08-07] MEDS: MAG-OX PO SCH (09:21)
[2017-08-07] MEDS: NORVASC PO SCH (09:21)
[2017-08-07] MEDS: FLEXERIL PO PRN ×2 (09:28→22:14)
--- NOTE | 2017-08-07 10:54 | Progress Note ---
Assessment and Plan Assessment and plan: --Metastatic lung cancer with bone mets and involvement of the vertebrae. Dr Kern discussed case with radiation oncology and plan is to start radiation on sunday. Pt was started on decadron. neurologically stable. continue to monitor and start xrt on today --Acute respiratory failure with hypoxia; Oxygen titrated O2 sats more than 90%, nebulizers, but if --History of metastatic lung cancer; Continue supportive care, pulmonary and oncology consultation --Extensive bone metastases. As above - Hypokalemia corrected replenish per protocol and monitor levels --Hypomagnesemia; the patient is a protocol monitor levels --Possible Malignant pleural effusion on CT scan; pulmonary evaluation Ultrasound-guided thoracentesis if needed --DVT prophylaxis; Lovenox --Full CODE STATUS Closely monitor the patient and adjust management as needed History Interval history: no new issues overnight Hospitalist Physical - Constitutional Vitals: Temp Pulse Resp BP Pulse Ox 98.3 F 117 H 16 143/103 98 08/07/17 07:45 08/07/17 07:45 08/07/17 07:45 08/07/17 07:45 08/07/17 07:45 General appearance: Present: no acute distress, well-nourished - EENT Eyes: Present: PERRL, EOM intact ENT: hearing intact, clear oral mucosa, dentition normal - Neck Neck: Present: supple, normal ROM - Respiratory Respiratory effort: normal Respiratory: bilateral: CTA - Cardiovascular Rhythm: regular Heart Sounds: Present: S1 & S2. Absent: gallop, rub - Extremities Extremities: no ischemia, No edema, Full ROM - Abdominal General gastrointestinal: soft, non-tender, non-distended, normal bowel sounds - Integumentary Integumentary: Present: clear, warm, dry - Neurologic Neurologic: CNII-XII intact, moves all extremities Results - Labs CBC & Chem 7: 08/07/17 05:29 08/07/17 05:29 Labs: Laboratory Last Values WBC 12.6 K/mm3 (4.5-11.0) H 08/07/17 05:29 RBC 4.31 M/mm3 (3.65-5.03) 08/07/17 05:29 Hgb 10.8 gm/dl (11.8-15.2) L 08/07/17 05:29 Hct 34.1 % (35.5-45.6) L 08/07/17 05:29 MCV 79 fl (84-94) L 08/07/17 05:29 MCH 25 pg (28-32) L 08/07/17 05:29 MCHC 32 % (32-34) 08/07/17 05:29 RDW 16.9 % (13.2-15.2) H 08/07/17 05:29 Plt Count 454 K/mm3 (140-440) H 08/07/17 05:29 Lymph % (Auto) 5.0 % (13.4-35.0) L 08/02/17 06:17 [place] % (Auto) 8.7 % (0.0-7.3) H 08/02/17 06:17 Eos % (Auto) 2.7 % (0.0-4.3) 08/02/17 06:17 Baso % (Auto) 0.4 % (0.0-1.8) 08/02/17 06:17 Lymph # 0.4 K/mm3 (1.2-5.4) L 08/02/17 06:17 [place] # 0.6 K/mm3 (0.0-0.8) 08/02/17 06:17 Eos # 0.2 K/mm3 (0.0-0.4) 08/02/17 06:17 Baso # 0.0 K/mm3 (0.0-0.1) 08/02/17 06:17 Add Manual Diff Complete 08/07/17 05:29 Total Counted 100 08/07/17 05:29 Seg Neutrophils % [place] 08/07/17 05:29 Seg Neuts % (Manual) 92.0 % (40.0-70.0) H 08/07/17 05:29 Band Neutrophils % 0 % 08/07/17 05:29 Lymphocytes % (Manual) 2.0 % (13.4-35.0) L 08/07/17 05:29 Reactive Lymphs % (Man) 0 % 08/07/17 05:29 Monocytes % (Manual) 6.0 % (0.0-7.3) 08/07/17 05:29 Eosinophils % (Manual) 0 % (0.0-4.3) 08/07/17 05:29 Basophils % (Manual) 0 % (0.0-1.8) 08/07/17 05:29 Metamyelocytes % 0 % 08/07/17 05:29 Myelocytes % 0 % 08/07/17 05:29 Promyelocytes % 0 % 08/07/17 05:29 Blast Cells % 0 % 08/07/17 05:29 Nucleated RBC % Not Reportable 08/07/17 05:29 Seg Neutrophils # 5.9 K/mm3 (1.8-7.7) 08/02/17 06:17 Seg Neutrophils # Man 11.6 K/mm3 (1.8-7.7) H 08/07/17 05:29 Band Neutrophils # 0.0 K/mm3 08/07/17 05:29 Lymphocytes # (Manual) 0.3 K/mm3 (1.2-5.4) L 08/07/17 05:29 Abs React Lymphs (Man) 0.0 K/mm3 08/07/17 05:29 Monocytes # (Manual) 0.8 K/mm3 (0.0-0.8) 08/07/17 05:29 Eosinophils # (Manual) 0.0 K/mm3 (0.0-0.4) 08/07/17 05:29 Basophils # (Manual) 0.0 K/mm3 (0.0-0.1) 08/07/17 05:29 Metamyelocytes # 0.0 K/mm3 08/07/17 05:29 Myelocytes # 0.0 K/mm3 08/07/17 05:29 Promyelocytes # 0.0 K/mm3 08/07/17 05:29 Blast Cells # 0.0 K/mm3 08/07/17 05:29 WBC Morphology Not Reportable 08/07/17 05:29 Hypersegmented Neuts Not Reportable 08/07/17 05:29 Hyposegmented Neuts Not Reportable 08/07/17 05:29 Hypogranular Neuts Not Reportable 08/07/17 05:29 Smudge Cells Not Reportable 08/07/17 05:29 Toxic Granulation Not Reportable 08/07/17 05:29 Toxic Vacuolation Not Reportable 08/07/17 05:29 Dohle Bodies Not Reportable 08/07/17 05:29 Pelger-Huet Anomaly Not Reportable 08/07/17 05:29 Ayan Rods Not Reportable 08/07/17 05:29 Platelet Estimate Consistent w auto 08/07/17 05:29 Clumped Platelets Not Reportable 08/07/17 05:29 Plt Clumps, EDTA Not Reportable 08/07/17 05:29 Large Platelets Not Reportable 08/07/17 05:29 Giant Platelets Not Reportable 08/07/17 05:29 Platelet Satelliting Not Reportable 08/07/17 05:29 Plt Morphology Comment Not Reportable 08/07/17 05:29 RBC Morphology Not Reportable 08/07/17 05:29 Dimorphic RBCs Not Reportable 08/07/17 05:29 Polychromasia Not Reportable 08/07/17 05:29 Hypochromasia 1+ 08/07/17 05:29 Poikilocytosis Not Reportable 08/07/17 05:29 Anisocytosis 1+ 08/07/17 05:29 Microcytosis Not Reportable 08/07/17 05:29 Macrocytosis Not Reportable 08/07/17 05:29 Spherocytes Not Reportable 08/07/17 05:29 Pappenheimer Bodies Not Reportable 08/07/17 05:29 Sickle Cells Not Reportable 08/07/17 05:29 Target Cells Not Reportable 08/07/17 05:29 Tear Drop Cells Not Reportable 08/07/17 05:29 Ovalocytes Not Reportable 08/07/17 05:29 Helmet Cells Not Reportable 08/07/17 05:29 Meyer-[place] Bodies Not Reportable 08/07/17 05:29 [place] Rings Not Reportable 08/07/17 05:29 [place] Cells Not Reportable 08/07/17 05:29 Bite Cells Not Reportable 08/07/17 05:29 Crenated Cell Not Reportable 08/07/17 05:29 Elliptocytes Not Reportable 08/07/17 05:29 Acanthocytes (Spur) Not Reportable 08/07/17 05:29 Rouleaux Not Reportable 08/07/17 05:29 Hemoglobin C Crystals Not Reportable 08/07/17 05:29 Schistocytes Not Reportable 08/07/17 05:29 Malaria parasites Not Reportable 08/07/17 05:29 Shukri Bodies Not Reportable 08/07/17 05:29 Hem Pathologist Commnt No 08/07/17 05:29 PT 14.2 Sec. (12.2-14.9) 08/02/17 13:18 INR 1.05 (0.87-1.13) 08/02/17 13:18 APTT 30.7 Sec. (24.2-36.6) 08/02/17 13:18 Sodium 140 mmol/L (137-145) 08/07/17 05:29 Potassium 3.9 mmol/L (3.6-5.0) D 08/07/17 05:29 Chloride 96.1 mmol/L (98-107) L 08/07/17 05:29 Carbon Dioxide 24 mmol/L (22-30) 08/07/17 05:29 Anion Gap 24 mmol/L 08/07/17 05:29 BUN 19 mg/dL (9-20) 08/07/17 05:29 Creatinine 0.3 mg/dL (0.8-1.5) L 08/07/17 05:29 Estimated GFR > 60 ml/min 08/07/17 05:29 BUN/Creatinine Ratio 63 % 08/07/17 05:29 Glucose 116 mg/dL (75-100) H 08/07/17 05:29 Calcium 9.2 mg/dL (8.4-10.2) 08/07/17 05:29 Magnesium 1.60 mg/dL (1.7-2.3) L 08/02/17 06:17 Total Bilirubin 0.70 mg/dL (0.1-1.2) 08/02/17 06:17 Direct Bilirubin < 0.2 mg/dL (0-0.2) 08/02/17 06:17 Indirect Bilirubin 0.2 mg/dL 07/31/17 12:09 AST 9 units/L (5-40) 08/02/17 06:17 ALT < 5 units/L (7-56) L 08/02/17 06:17 Alkaline Phosphatase 283 units/L (35-129) H 08/02/17 06:17 Total Protein 7.5 g/dL (6.3-8.2) 08/02/17 06:17 Albumin 3.5 g/dL (3.9-5) L 08/02/17 06:17 Albumin/Globulin Ratio 0.9 % 08/02/17 06:17 Urine Color Yellow (Yellow) 07/31/17 14:50 Urine Turbidity Clear (Clear) 07/31/17 14:50 Urine pH 5.0 (5.0-7.0) 07/31/17 14:50 Ur Specific [place] 1.028 (1.003-1.030) 07/31/17 14:50 Urine Protein 30 mg/dl mg/dL (Negative) 07/31/17 14:50 Urine Glucose (UA) Neg mg/dL (Negative) 07/31/17 14:50 Urine Ketones Neg mg/dL (Negative) 07/31/17 14:50 Urine Blood Neg (Negative) 07/31/17 14:50 Urine Nitrite Neg (Negative) 07/31/17 14:50 Urine Bilirubin Neg (Negative) 07/31/17 14:50 Urine Urobilinogen 4.0 mg/dL (<2.0) 07/31/17 14:50 Ur Leukocyte Esterase Neg (Negative) 07/31/17 14:50 Urine WBC (Auto) 4.0 /HPF (0.0-6.0) 07/31/17 14:50 Urine RBC (Auto) 1.0 /HPF (0.0-6.0) 07/31/17 14:50 U Epithel Cells (Auto) < 1.0 /HPF (0-13.0) 07/31/17 14:50 Urine Mucus 2+ /HPF 07/31/17 14:50
--- NOTE | 2017-08-07 12:31 | Progress Note ---
Assessment and Plan Patient alert, awake and resting on room air.Says has some cough. No acute respiratory distress.O2 saturation 97% on room air. - Patient Problems (1) Metastatic lung cancer (metastasis from lung to other site) Current Visit: Yes Status: Acute Qualifiers: Laterality: left Qualified Code(s): C34.92 - Malignant neoplasm of unspecified part of left bronchus or lung Plan to address problem: Management as per oncology. (2) Pleural effusion Current Visit: Yes Status: Acute Plan to address problem: Ultrasound of chest reported no significant pleural effusion. (3) Acute respiratory failure Current Visit: No Status: Acute Qualifiers: Respiratory failure complication: hypoxia Qualified Code(s): J96.01 - Acute respiratory failure with hypoxia Plan to address problem: Improved. Patient is on room air. No acute respiratory distress. O2 saturation 97% on room air. Albuterol/atrovent aerosol treatments q 6 hours. Lovenox 40 mg S/C qd. Continue Decadron. Subjective Date of service: 08/07/17 Principal diagnosis: Acute Hypoxemic Resp Failure; Pneumonia; Metastatic Lung CA Interval history: Patient alert, awake and resting on room air.Says has some cough. No acute respiratory distress.O2 saturation 97% on room air. Objective Vital Signs - 12hr 08/07/17 08/07/17 08/07/17 00:57 04:39 04:45 Temperature 97.7 F Pulse Rate 97 H 118 H Respiratory 19 Rate Blood Pressure 177/114 181/121 Blood Pressure 170/90 [Right] O2 Sat by Pulse 97 Oximetry 08/07/17 08/07/17 06:03 07:45 Temperature 98.3 F Pulse Rate 97 H 117 H Respiratory 16 Rate Blood Pressure 181/121 Blood Pressure 143/103 [Right] O2 Sat by Pulse 98 Oximetry Constitutional: no acute distress, alert Eyes: non-icteric ENT: oropharynx moist, other (mallampatti 2 oropharynx) Neck: supple, no lymphadenopathy, no JVD, other (no thyromegaly) Effort: mildly labored Ascultation: Left: diminished breath sounds (base), Bilateral: rhonchi (scant ) , other (prolonged exp phase) Percussion: Right: dull (base), Left: not dull (base) Cardiovascular: regular rate and rhythm, other (S1,S2, no murmurs, gallops or rubs) Gastrointestinal: normoactive bowel sounds, soft, non-tender, other (No palpable HSM) Integumentary: normal, other (Left chest wall scar) Extremities: no cyanosis, no edema, pulses normal, no ischemia or petechiae Neurologic: normal mental status, non-focal exam, pupils equal and round, CN II- XII normal, motor strength normal and, other (No HSM) Psychiatric: mood appropriate, affect normal CBC and BMP: 08/07/17 05:29 08/07/17 05:29 ABG, PT/INR, D-dimer: PT/INR, D-dimer PT 14.2 Sec. (12.2-14.9) 08/02/17 13:18 INR 1.05 (0.87-1.13) 08/02/17 13:18 Abnormal lab findings: Abnormal Labs 07/31/17 07/31/17 07/31/17 12:09 12:09 12:09 WBC Hgb 10.2 L Hct 31.6 L MCV 80 L MCH 26 L RDW 16.9 H Plt Count Lymph % (Auto) [place] % (Auto) Lymph # Seg Neutrophils % Seg Neuts % (Manual) Lymphocytes % (Manual) Seg Neutrophils # Man Lymphocytes # (Manual) Potassium 2.9 L* Chloride 96.2 L BUN Creatinine 0.4 L Glucose 104 H Magnesium ALT < 5 L Alkaline Phosphatase 279 H Albumin 3.3 L 08/01/17 08/02/17 08/02/17 10:42 06:17 06:17 WBC Hgb 10.8 L Hct 33.1 L MCV 80 L MCH 26 L RDW 17.1 H Plt Count Lymph % (Auto) 5.0 L [place] % (Auto) 8.7 H Lymph # 0.4 L Seg Neutrophils % 83.2 H Seg Neuts % (Manual) Lymphocytes % (Manual) Seg Neutrophils # Man Lymphocytes # (Manual) Potassium 3.1 L 3.2 L Chloride 91.0 L BUN 6 L Creatinine 0.2 L Glucose Magnesium 1.60 L 1.60 L ALT < 5 L Alkaline Phosphatase 283 H Albumin 3.5 L 08/07/17 08/07/17 05:29 05:29 WBC 12.6 H Hgb 10.8 L Hct 34.1 L MCV 79 L MCH 25 L RDW 16.9 H Plt Count 454 H Lymph % (Auto) [place] % (Auto) Lymph # Seg Neutrophils % Seg Neuts % (Manual) 92.0 H Lymphocytes % (Manual) 2.0 L Seg Neutrophils # Man 11.6 H Lymphocytes # (Manual) 0.3 L Potassium Chloride 96.1 L BUN Creatinine 0.3 L Glucose 116 H Magnesium ALT Alkaline Phosphatase Albumin Chest x-ray: report reviewed (Left pleural effusion), image reviewed Additional Studies: Ultrasound of chest showed no significant effusion.
--- NOTE | 2017-08-07 15:20 | Hem/Onc Progress Note ---
Assessment and Plan - Patient Problems (1) Metastatic lung cancer (metastasis from lung to other site) Current Visit: Yes Status: Acute Qualifiers: Laterality: left Qualified Code(s): C34.92 - Malignant neoplasm of unspecified part of left bronchus or lung Plan to address problem: D/w RAdiation Oncology. plan is for inpatient XRT. Subjective Date of service: 08/07/17 Interval history: He complains of pain over spine. No neuro deficits. Objective - Constitutional Vitals: Last Vital Signs Temp 98.5 F 08/07/17 14:55 Pulse 117 H 08/07/17 14:55 Resp 24 08/07/17 14:55 BP 140/95 08/07/17 14:55 Pulse Ox 97 08/07/17 14:55 Pain Intensity (0-10): 8/10 - EENT Eyes: PERRL ENT: hearing intact Lymph node exam: bilateral cervical - Neck Neck: supple - Respiratory Respiratory: bilateral: CTA - Cardiovascular Rhythm: regular Heart Sounds: Present: S1 & S2 - Gastrointestinal General gastrointestinal: Present: soft - Integumentary Integumentary: clear - Musculoskeletal Musculoskeletal: strength equal bilaterally - Neurologic Neurologic: CNII-XII intact - Labs Lab Results: Laboratory Results - last 24 hr 08/07/17 08/07/17 05:29 05:29 WBC 12.6 H RBC 4.31 Hgb 10.8 L Hct 34.1 L MCV 79 L MCH 25 L MCHC 32 RDW 16.9 H Plt Count 454 H Add Manual Diff Complete Total Counted 100 Seg Neutrophils % [employer] Rep[employer]r Seg Neuts % (Manual) 92.0 H Band Neutrophils % 0 Lymphocytes % (Manual) 2.0 L Reactive Lymphs % (Man) 0 Monocytes % (Manual) 6.0 Eosinophils % (Manual) 0 Basophils % (Manual) 0 Metamyelocytes % 0 Myelocytes % 0 Promyelocytes % 0 Blast Cells % 0 Nucleated RBC % Not Reportable Seg Neutrophils # Man 11.6 H Band Neutrophils # 0.0 Lymphocytes # (Manual) 0.3 L Abs React Lymphs (Man) 0.0 Monocytes # (Manual) 0.8 Eosinophils # (Manual) 0.0 Basophils # (Manual) 0.0 Metamyelocytes # 0.0 Myelocytes # 0.0 Promyelocytes # 0.0 Blast Cells # 0.0 WBC Morphology Not Reportable Hypersegmented Neuts Not Reportable Hyposegmented Neuts Not Reportable Hypogranular Neuts Not Reportable Smudge Cells Not Reportable Toxic Granulation Not Reportable Toxic Vacuolation Not Reportable Dohle Bodies Not Reportable Pelger-Huet Anomaly Not Reportable Ayan Rods Not Reportable Platelet Estimate Consistent w auto Clumped Platelets Not Reportable Plt Clumps, EDTA Not Reportable Large Platelets Not Reportable Giant Platelets Not Reportable Platelet Satelliting Not Reportable Plt Morphology Comment Not Reportable RBC Morphology Not Reportable Dimorphic RBCs Not Reportable Polychromasia Not Reportable Hypochromasia 1+ Poikilocytosis Not Reportable Anisocytosis 1+ Microcytosis Not Reportable Macrocytosis Not Reportable Spherocytes Not Reportable Pappenheimer Bodies Not Reportable Sickle Cells Not Reportable Target Cells Not Reportable Tear Drop Cells Not Reportable Ovalocytes Not Reportable Helmet Cells Not Reportable Meyer-[place] Bodies Not Reportable [place] Rings Not Reportable [place] Cells Not Reportable Bite Cells Not Reportable Crenated Cell Not Reportable Elliptocytes Not Reportable Acanthocytes (Spur) Not Reportable Rouleaux Not Reportable Hemoglobin C Crystals Not Reportable Schistocytes Not Reportable Malaria parasites Not Reportable Shukri Bodies Not Reportable Hem Pathologist Commnt No Sodium 140 Potassium 3.9 D Chloride 96.1 L Carbon Dioxide 24 Anion Gap 24 BUN 19 Creatinine 0.3 L Estimated GFR > 60 BUN/Creatinine Ratio 63 Glucose 116 H Calcium 9.2
[2017-08-07] MEDS: DUONEB *Not for PRN Use IH SCH (19:54)
[2017-08-07] MEDS ORDERED: PROVENTIL IH SCH (20:00)
[2017-08-07] MEDS ORDERED: ATROVENT IH SCH (20:00)
[2017-08-08] MEDS: APRESOLINE IV PRN (00:42)
[2017-08-08] MEDS: DECADRON IV SCH ×4 (00:43→18:21)
[2017-08-08] MEDS: DUONEB *Not for PRN Use IH SCH ×4 (02:22→19:46)
[2017-08-08 06:14] LABS: Hematocrit 34.8 % (35.5-45.6); Hemoglobin 10.7 gm/dl (11.8-15.2); Mean Corpuscular HGB Conc 31 % (32-34); Mean Corpuscular Volume 79 fl (84-94); Platelet Count 460 K/mm3 (140-440); Red Blood Count 4.38 M/mm3 (3.65-5.03); Red Cell Distribution Width 17.1 % (13.2-15.2)
[2017-08-08 06:30] LABS: Mean Corpuscular Hemoglobin 24 pg (28-32)
[2017-08-08 06:35] LABS: BUN/Creatinine Ratio 70; Blood Urea Nitrogen 21 mg/dL (9-20); Calcium 9.4 mg/dL (8.4-10.2); Hemolysis Index 17
[2017-08-08] MEDS: NORVASC PO SCH (09:03)
[2017-08-08] MEDS: LOVENOX SUB-Q SCH (09:03)
[2017-08-08] MEDS: MORPHINE IV PRN ×3 (09:03→18:23)
[2017-08-08] MEDS: MAG-OX PO SCH (09:03)
[2017-08-08 09:46] LABS: Band Neutrophils # (Manual) 0.2 K/mm3; Basophils % (Manual) 0 % (0.0-1.8); Eosinophils % (Manual) 0 % (0.0-4.3); Monocytes % (Manual) 3 % (0.0-7.3); Total Cells Counted 100
[2017-08-08 09:47] LABS: Anisocytosis 1+; Hypochromasia 1+
--- NOTE | 2017-08-08 10:02 | Progress Note ---
Assessment and Plan Assessment and plan: --Metastatic lung cancer with bone mets and involvement of the vertebrae. XRT today --Acute respiratory failure with hypoxia; cont O2 support --History of metastatic lung cancer; Continue supportive care, pulmonary and oncology consultation --Extensive bone metastases. As above --Possible Malignant pleural effusion on CT scan; pulmonary Ultrasound-guided thoracentesis if needed --DVT prophylaxis; Lovenox --Full CODE STATUS History Interval history: no new issues overnight Hospitalist Physical - Constitutional Vitals: Temp Pulse Resp BP Pulse Ox 97.8 F 100 H 20 162/110 99 08/08/17 07:16 08/08/17 07:34 08/08/17 07:34 08/08/17 07:16 08/08/17 07:16 General appearance: Present: no acute distress, well-nourished - EENT Eyes: Present: PERRL, EOM intact ENT: hearing intact, clear oral mucosa, dentition normal - Neck Neck: Present: supple, normal ROM - Respiratory Respiratory effort: normal Respiratory: bilateral: CTA - Cardiovascular Rhythm: regular Heart Sounds: Present: S1 & S2. Absent: gallop, rub - Extremities Extremities: no ischemia, No edema, Full ROM - Abdominal General gastrointestinal: soft, non-tender, non-distended, normal bowel sounds - Integumentary Integumentary: Present: clear, warm, dry - Neurologic Neurologic: CNII-XII intact, moves all extremities Results - Labs CBC & Chem 7: 08/08/17 05:21 08/08/17 05:21 Labs: Laboratory Last Values WBC 11.5 K/mm3 (4.5-11.0) H 08/08/17 05:21 RBC 4.38 M/mm3 (3.65-5.03) 08/08/17 05:21 Hgb 10.7 gm/dl (11.8-15.2) L 08/08/17 05:21 Hct 34.8 % (35.5-45.6) L 08/08/17 05:21 MCV 79 fl (84-94) L 08/08/17 05:21 MCH 24 pg (28-32) L 08/08/17 05:21 MCHC 31 % (32-34) L 08/08/17 05:21 RDW 17.1 % (13.2-15.2) H 08/08/17 05:21 Plt Count 460 K/mm3 (140-440) H 08/08/17 05:21 Lymph % (Auto) 5.0 % (13.4-35.0) L 08/02/17 06:17 [place] % (Auto) 8.7 % (0.0-7.3) H 08/02/17 06:17 Eos % (Auto) 2.7 % (0.0-4.3) 08/02/17 06:17 Baso % (Auto) 0.4 % (0.0-1.8) 08/02/17 06:17 Lymph # 0.4 K/mm3 (1.2-5.4) L 08/02/17 06:17 [place] # 0.6 K/mm3 (0.0-0.8) 08/02/17 06:17 Eos # 0.2 K/mm3 (0.0-0.4) 08/02/17 06:17 Baso # 0.0 K/mm3 (0.0-0.1) 08/02/17 06:17 Add Manual Diff Complete 08/08/17 05:21 Total Counted 100 08/08/17 05:21 Seg Neutrophils % [employer] Software Consultant 08/08/17 05:21 Seg Neuts % (Manual) 93.0 % (40.0-70.0) H 08/08/17 05:21 Band Neutrophils % 2.0 % 08/08/17 05:21 Lymphocytes % (Manual) 2 % (13.4-35.0) L 08/08/17 05:21 Reactive Lymphs % (Man) 0 % 08/08/17 05:21 Monocytes % (Manual) 3 % (0.0-7.3) 08/08/17 05:21 Eosinophils % (Manual) 0 % (0.0-4.3) 08/08/17 05:21 Basophils % (Manual) 0 % (0.0-1.8) 08/08/17 05:21 Metamyelocytes % 0 % 08/08/17 05:21 Myelocytes % 0 % 08/08/17 05:21 Promyelocytes % 0 % 08/08/17 05:21 Blast Cells % 0 % 08/08/17 05:21 Nucleated RBC % Not Reportable 08/08/17 05:21 Seg Neutrophils # 5.9 K/mm3 (1.8-7.7) 08/02/17 06:17 Seg Neutrophils # Man 10.7 K/mm3 (1.8-7.7) H 08/08/17 05:21 Band Neutrophils # 0.2 K/mm3 08/08/17 05:21 Lymphocytes # (Manual) 0.2 K/mm3 (1.2-5.4) L 08/08/17 05:21 Abs React Lymphs (Man) 0.0 K/mm3 08/08/17 05:21 Monocytes # (Manual) 0.3 K/mm3 (0.0-0.8) 08/08/17 05:21 Eosinophils # (Manual) 0.0 K/mm3 (0.0-0.4) 08/08/17 05:21 Basophils # (Manual) 0.0 K/mm3 (0.0-0.1) 08/08/17 05:21 Metamyelocytes # 0.0 K/mm3 08/08/17 05:21 Myelocytes # 0.0 K/mm3 08/08/17 05:21 Promyelocytes # 0.0 K/mm3 08/08/17 05:21 Blast Cells # 0.0 K/mm3 08/08/17 05:21 WBC Morphology Not Reportable 08/08/17 05:21 Hypersegmented Neuts Not Reportable 08/08/17 05:21 Hyposegmented Neuts Not Reportable 08/08/17 05:21 Hypogranular Neuts Not Reportable 08/08/17 05:21 Smudge Cells Not Reportable 08/08/17 05:21 Toxic Granulation Not Reportable 08/08/17 05:21 Toxic Vacuolation Not Reportable 08/08/17 05:21 Dohle Bodies Not Reportable 08/08/17 05:21 Pelger-Huet Anomaly Not Reportable 08/08/17 05:21 Ayan Rods Not Reportable 08/08/17 05:21 Platelet Estimate Not Reportable 08/08/17 05:21 Clumped Platelets Not Reportable 08/08/17 05:21 Plt Clumps, EDTA Not Reportable 08/08/17 05:21 Large Platelets Not Reportable 08/08/17 05:21 Giant Platelets Not Reportable 08/08/17 05:21 Platelet Satelliting Not Reportable 08/08/17 05:21 Plt Morphology Comment Not Reportable 08/08/17 05:21 RBC Morphology Not Reportable 08/08/17 05:21 Dimorphic RBCs Not Reportable 08/08/17 05:21 Polychromasia Not Reportable 08/08/17 05:21 Hypochromasia 1+ 08/08/17 05:21 Poikilocytosis Not Reportable 08/08/17 05:21 Anisocytosis 1+ 08/08/17 05:21 Microcytosis Not Reportable 08/08/17 05:21 Macrocytosis Not Reportable 08/08/17 05:21 Spherocytes Not Reportable 08/08/17 05:21 Pappenheimer Bodies Not Reportable 08/08/17 05:21 Sickle Cells Not Reportable 08/08/17 05:21 Target Cells Not Reportable 08/08/17 05:21 Tear Drop Cells Not Reportable 08/08/17 05:21 Ovalocytes Not Reportable 08/08/17 05:21 Helmet Cells Not Reportable 08/08/17 05:21 Meyer-[place] Bodies Not Reportable 08/08/17 05:21 [place] Rings Not Reportable 08/08/17 05:21 [place] Cells Not Reportable 08/08/17 05:21 Bite Cells Not Reportable 08/08/17 05:21 Crenated Cell Not Reportable 08/08/17 05:21 Elliptocytes Not Reportable 08/08/17 05:21 Acanthocytes (Spur) Not Reportable 08/08/17 05:21 Rouleaux Not Reportable 08/08/17 05:21 Hemoglobin C Crystals Not Reportable 08/08/17 05:21 Schistocytes Not Reportable 08/08/17 05:21 Malaria parasites Not Reportable 08/08/17 05:21 Shukri Bodies Not Reportable 08/08/17 05:21 Hem Pathologist Commnt No 08/08/17 05:21 PT 14.2 Sec. (12.2-14.9) 08/02/17 13:18 INR 1.05 (0.87-1.13) 08/02/17 13:18 APTT 30.7 Sec. (24.2-36.6) 08/02/17 13:18 Sodium 142 mmol/L (137-145) 08/08/17 05:21 Potassium 4.1 mmol/L (3.6-5.0) 08/08/17 05:21 Chloride 99.7 mmol/L (98-107) 08/08/17 05:21 Carbon Dioxide 24 mmol/L (22-30) 08/08/17 05:21 Anion Gap 22 mmol/L 08/08/17 05:21 BUN 21 mg/dL (9-20) H 08/08/17 05:21 Creatinine 0.3 mg/dL (0.8-1.5) L 08/08/17 05:21 Estimated GFR > 60 ml/min 08/08/17 05:21 BUN/Creatinine Ratio 70 % 08/08/17 05:21 Glucose 107 mg/dL (75-100) H 08/08/17 05:21 Calcium 9.4 mg/dL (8.4-10.2) 08/08/17 05:21 Magnesium 1.60 mg/dL (1.7-2.3) L 08/02/17 06:17 Total Bilirubin 0.70 mg/dL (0.1-1.2) 08/02/17 06:17 Direct Bilirubin < 0.2 mg/dL (0-0.2) 08/02/17 06:17 Indirect Bilirubin 0.2 mg/dL 07/31/17 12:09 AST 9 units/L (5-40) 08/02/17 06:17 ALT < 5 units/L (7-56) L 08/02/17 06:17 Alkaline Phosphatase 283 units/L (35-129) H 08/02/17 06:17 Total Protein 7.5 g/dL (6.3-8.2) 08/02/17 06:17 Albumin 3.5 g/dL (3.9-5) L 08/02/17 06:17 Albumin/Globulin Ratio 0.9 % 08/02/17 06:17 Urine Color Yellow (Yellow) 07/31/17 14:50 Urine Turbidity Clear (Clear) 07/31/17 14:50 Urine pH 5.0 (5.0-7.0) 07/31/17 14:50 Ur Specific [place] 1.028 (1.003-1.030) 07/31/17 14:50 Urine Protein 30 mg/dl mg/dL (Negative) 07/31/17 14:50 Urine Glucose (UA) Neg mg/dL (Negative) 07/31/17 14:50 Urine Ketones Neg mg/dL (Negative) 07/31/17 14:50 Urine Blood Neg (Negative) 07/31/17 14:50 Urine Nitrite Neg (Negative) 07/31/17 14:50 Urine Bilirubin Neg (Negative) 07/31/17 14:50 Urine Urobilinogen 4.0 mg/dL (<2.0) 07/31/17 14:50 Ur Leukocyte Esterase Neg (Negative) 07/31/17 14:50 Urine WBC (Auto) 4.0 /HPF (0.0-6.0) 07/31/17 14:50 Urine RBC (Auto) 1.0 /HPF (0.0-6.0) 07/31/17 14:50 U Epithel Cells (Auto) < 1.0 /HPF (0-13.0) 07/31/17 14:50 Urine Mucus 2+ /HPF 07/31/17 14:50
[2017-08-08] MEDS: PERCOCET 5/325 PO PRN ×2 (11:18→20:55)
--- NOTE | 2017-08-08 15:14 | Hem/Onc Progress Note ---
Assessment and Plan - Patient Problems (1) Metastatic lung cancer (metastasis from lung to other site) Current Visit: Yes Status: Acute Qualifiers: Laterality: left Qualified Code(s): C34.92 - Malignant neoplasm of unspecified part of left bronchus or lung Plan to address problem: He complains of pain. Saw Dr Rahman today and plan is XRt tomorrow. He needs outpatient follow up. Stressed with patient. he agrees. Subjective Date of service: 08/08/17 Interval history: He complains of pain in T spine. No new neuro deficits. Objective - Constitutional Vitals: Last Vital Signs Temp 97.3 F L 08/08/17 13:25 Pulse 95 H 08/08/17 13:25 Resp 18 08/08/17 13:25 BP 129/84 08/08/17 13:25 Pulse Ox 96 08/08/17 13:25 - EENT Eyes: PERRL ENT: hearing intact Lymph node exam: negative cervical - Neck Neck: supple - Respiratory Respiratory: bilateral: CTA - Cardiovascular Rhythm: regular - Labs Lab Results: Laboratory Results - last 24 hr 08/08/17 08/08/17 05:21 05:21 WBC 11.5 H RBC 4.38 Hgb 10.7 L Hct 34.8 L MCV 79 L MCH 24 L MCHC 31 L RDW 17.1 H Plt Count 460 H Add Manual Diff Complete Total Counted 100 Seg Neutrophils % Director Of Quality Improvement Seg Neuts % (Manual) 93.0 H Band Neutrophils % 2.0 Lymphocytes % (Manual) 2 L Reactive Lymphs % (Man) 0 Monocytes % (Manual) 3 Eosinophils % (Manual) 0 Basophils % (Manual) 0 Metamyelocytes % 0 Myelocytes % 0 Promyelocytes % 0 Blast Cells % 0 Nucleated RBC % Not Reportable Seg Neutrophils # Man 10.7 H Band Neutrophils # 0.2 Lymphocytes # (Manual) 0.2 L Abs React Lymphs (Man) 0.0 Monocytes # (Manual) 0.3 Eosinophils # (Manual) 0.0 Basophils # (Manual) 0.0 Metamyelocytes # 0.0 Myelocytes # 0.0 Promyelocytes # 0.0 Blast Cells # 0.0 WBC Morphology Not Reportable Hypersegmented Neuts Not Reportable Hyposegmented Neuts Not Reportable Hypogranular Neuts Not Reportable Smudge Cells Not Reportable Toxic Granulation Not Reportable Toxic Vacuolation Not Reportable Dohle Bodies Not Reportable Pelger-Huet Anomaly Not Reportable Ayan Rods Not Reportable Platelet Estimate Not Reportable Clumped Platelets Not Reportable Plt Clumps, EDTA Not Reportable Large Platelets Not Reportable Giant Platelets Not Reportable Platelet Satelliting Not Reportable Plt Morphology Comment Not Reportable RBC Morphology Not Reportable Dimorphic RBCs Not Reportable Polychromasia Not Reportable Hypochromasia 1+ Poikilocytosis Not Reportable Anisocytosis 1+ Microcytosis Not Reportable Macrocytosis Not Reportable Spherocytes Not Reportable Pappenheimer Bodies Not Reportable Sickle Cells Not Reportable Target Cells Not Reportable Tear Drop Cells Not Reportable Ovalocytes Not Reportable Helmet Cells Not Reportable Meyer-[place] Bodies Not Reportable [place] Rings Not Reportable Kota Cells Not Reportable Bite Cells Not Reportable Crenated Cell Not Reportable Elliptocytes Not Reportable Acanthocytes (Spur) Not Reportable Rouleaux Not Reportable Hemoglobin C Crystals Not Reportable Schistocytes Not Reportable Malaria parasites Not Reportable Shukri Bodies Not Reportable Hem Pathologist Commnt No Sodium 142 Potassium 4.1 Chloride 99.7 Carbon Dioxide 24 Anion Gap 22 BUN 21 H Creatinine 0.3 L Estimated GFR > 60 BUN/Creatinine Ratio 70 Glucose 107 H Calcium 9.4
--- NOTE | 2017-08-08 20:20 | Progress Note ---
Assessment and Plan Patient alert, awake and resting on room air.Says has some cough. No acute respiratory distress.O2 saturation 98% on room air.Patient scheduled for radiation therapy tomorrow. - Patient Problems (1) Metastatic lung cancer (metastasis from lung to other site) Current Visit: Yes Status: Acute Qualifiers: Laterality: left Qualified Code(s): C34.92 - Malignant neoplasm of unspecified part of left bronchus or lung Plan to address problem: Management as per oncology. (2) Pleural effusion Current Visit: Yes Status: Acute Plan to address problem: Ultrasound of chest reported no significant pleural effusion. (3) Acute respiratory failure Current Visit: No Status: Acute Qualifiers: Respiratory failure complication: hypoxia Qualified Code(s): J96.01 - Acute respiratory failure with hypoxia Plan to address problem: Improved. Patient is on room air. No acute respiratory distress. O2 saturation 98% on room air. Albuterol/atrovent aerosol treatments q 6 hours. Lovenox 40 mg S/C qd. Continue Decadron. Subjective Date of service: 08/08/17 Principal diagnosis: Acute Hypoxemic Resp Failure; Pneumonia; Metastatic Lung CA Interval history: Patient alert, awake and resting on room air.Says has some cough. No acute respiratory distress.O2 saturation 98% on room air.Patient scheduled for radiation therapy tomorrow. Objective Vital Signs - 12hr 08/08/17 08/08/17 08/08/17 13:19 13:25 15:45 Temperature 97.3 F L 97.8 F Pulse Rate 124 H 125 H Pulse Rate [ 94 H 95 H Anterior Left Lower Lobe] Respiratory 20 20 Rate Respiratory 18 18 Rate [Anterior Left Lower Lobe ] Blood Pressure 129/84 144/87 O2 Sat by Pulse 96 98 Oximetry Constitutional: no acute distress, alert Eyes: non-icteric ENT: oropharynx moist, other (mallampatti 2 oropharynx) Neck: supple, no lymphadenopathy, no JVD, other (no thyromegaly) Effort: mildly labored Ascultation: Left: diminished breath sounds (base), Bilateral: rhonchi (scant ) , other (prolonged exp phase) Percussion: Right: dull (base), Left: not dull (base) Cardiovascular: regular rate and rhythm, other (S1,S2, no murmurs, gallops or rubs) Gastrointestinal: normoactive bowel sounds, soft, non-tender, other (No palpable HSM) Integumentary: normal, other (Left chest wall scar) Extremities: no cyanosis, no edema, pulses normal, no ischemia or petechiae Neurologic: normal mental status, non-focal exam, pupils equal and round, CN II- XII normal, motor strength normal and, other (No HSM) Psychiatric: mood appropriate, affect normal CBC and BMP: 08/08/17 05:21 08/08/17 05:21 ABG, PT/INR, D-dimer: PT/INR, D-dimer PT 14.2 Sec. (12.2-14.9) 08/02/17 13:18 INR 1.05 (0.87-1.13) 08/02/17 13:18 Abnormal lab findings: Abnormal Labs 07/31/17 07/31/17 07/31/17 12:09 12:09 12:09 WBC Hgb 10.2 L Hct 31.6 L MCV 80 L MCH 26 L MCHC RDW 16.9 H Plt Count Lymph % (Auto) [place] % (Auto) Lymph # Seg Neutrophils % Seg Neuts % (Manual) Lymphocytes % (Manual) Seg Neutrophils # Man Lymphocytes # (Manual) Potassium 2.9 L* Chloride 96.2 L BUN Creatinine 0.4 L Glucose 104 H Magnesium ALT < 5 L Alkaline Phosphatase 279 H Albumin 3.3 L 08/01/17 08/02/17 08/02/17 10:42 06:17 06:17 WBC Hgb 10.8 L Hct 33.1 L MCV 80 L MCH 26 L MCHC RDW 17.1 H Plt Count Lymph % (Auto) 5.0 L [place] % (Auto) 8.7 H Lymph # 0.4 L Seg Neutrophils % 83.2 H Seg Neuts % (Manual) Lymphocytes % (Manual) Seg Neutrophils # Man Lymphocytes # (Manual) Potassium 3.1 L 3.2 L Chloride 91.0 L BUN 6 L Creatinine 0.2 L Glucose Magnesium 1.60 L 1.60 L ALT < 5 L Alkaline Phosphatase 283 H Albumin 3.5 L 08/07/17 08/07/17 08/08/17 05:29 05:29 05:21 WBC 12.6 H 11.5 H Hgb 10.8 L 10.7 L Hct 34.1 L 34.8 L MCV 79 L 79 L MCH 25 L 24 L MCHC 31 L RDW 16.9 H 17.1 H Plt Count 454 H 460 H Lymph % (Auto) [place] % (Auto) Lymph # Seg Neutrophils % Seg Neuts % (Manual) 92.0 H 93.0 H Lymphocytes % (Manual) 2.0 L 2 L Seg Neutrophils # Man 11.6 H 10.7 H Lymphocytes # (Manual) 0.3 L 0.2 L Potassium Chloride 96.1 L BUN Creatinine 0.3 L Glucose 116 H Magnesium ALT Alkaline Phosphatase Albumin 08/08/17 05:21 WBC Hgb Hct MCV MCH MCHC RDW Plt Count Lymph % (Auto) [place] % (Auto) Lymph # Seg Neutrophils % Seg Neuts % (Manual) Lymphocytes % (Manual) Seg Neutrophils # Man Lymphocytes # (Manual) Potassium Chloride BUN 21 H Creatinine 0.3 L Glucose 107 H Magnesium ALT Alkaline Phosphatase Albumin
[2017-08-08] MEDS: ROXICODONE PO PRN (20:55)
[2017-08-09] MEDS: DECADRON IV SCH ×4 (00:03→17:22)
[2017-08-09] MEDS: MORPHINE IV PRN ×5 (00:03→21:36)
[2017-08-09] MEDS: DUONEB *Not for PRN Use IH SCH ×5 (02:15→21:36)
[2017-08-09] MEDS: APRESOLINE IV PRN ×2 (05:25→16:10)
[2017-08-09] MEDS: ROXICODONE PO PRN ×2 (05:28→17:21)
[2017-08-09] MEDS: PERCOCET 5/325 PO PRN ×2 (05:28→16:14)
[2017-08-09 06:47] LABS: Hematocrit 32.8 % (35.5-45.6); Hemoglobin 10.4 gm/dl (11.8-15.2); Mean Corpuscular HGB Conc 32 % (32-34); Mean Corpuscular Volume 80 fl (84-94); Platelet Count 407 K/mm3 (140-440); Red Blood Count 4.09 M/mm3 (3.65-5.03); Red Cell Distribution Width 17.1 % (13.2-15.2)
[2017-08-09 06:53] LABS: Mean Corpuscular Hemoglobin 25 pg (28-32)
[2017-08-09 07:00] LABS: BUN/Creatinine Ratio 73; Blood Urea Nitrogen 22 mg/dL (9-20); Calcium 9.1 mg/dL (8.4-10.2); Hemolysis Index 3
[2017-08-09 08:48] LABS: Anisocytosis 1+; Band Neutrophils # (Manual) 0.1 K/mm3; Basophils % (Manual) 0 % (0.0-1.8); Eosinophils % (Manual) 0 % (0.0-4.3); Hypochromasia 1+; Total Cells Counted 100
[2017-08-09] MEDS: LOVENOX SUB-Q SCH (09:28)
[2017-08-09] MEDS: MAG-OX PO SCH (09:28)
[2017-08-09] MEDS: NORVASC PO SCH (09:28)
--- NOTE | 2017-08-09 12:06 | Discharge Summary ---
Providers - Providers Date of Admission: 07/31/17 15:31 Date of discharge: 08/09/17 Attending physician: LOREN LEMUS 08/01/17 20:08 Consult to Physician [CONS] Routine Consulting Provider: ELISEO FELDMAN Reason For Exam: metastatic lung cancer Place consult to:: Dr. Feldman Notified:: Yes Was contact made?: Yes If yes, spoke with:: Dr. Feldman Time called:: 12:29 08/01/17 20:32 Consult to Physician [CONS] Routine Consulting Provider: JAKY MINER Reason For Exam: metastatic lung Ca/pl effusion Place consult to:: alannah Notified:: yes Phone number called:: [phone] If yes, spoke with:: DR Liang Time called:: 09:30 Primary care physician: EMILEE MARTINEZ Hospitalization Reason for admission: pleurtal effusion Condition: Stable Hospital course: 66 YO Male with HTN, Lung Cancer presented with acute hypoxic respiratory failure secondary to left lower lobe atelectasis. Patient has a history of lung cancer, status post left lower lobectomy. Imaging was performed which revealed metastatic lung cancer with bone metastases and involvement of the vertebrae. Patient was noted to be stable neurologically. Patient was seen by pulmonary and Hematology/oncology consultation. The the patient was felt initially to have possibly pneumonia but upon further evaluation was felt to be secondary to chronic appearing left lower lung changes and atelectasis. Patient was also started on Decadron by oncology. Patient was treated with supplemental oxygen and BiPAP for the respiratory failure. Oncology opted for initiation of radiation therapy that started on 08/08/17. The patient remained in the hospital to have this initiated due to history of noncompliance. Patient is felt to have received maximal hospital benefit. The discharge time 32 minutes. Disposition: - TO HOME OR SELFCARE Time spent for discharge: 32 - Discharge Diagnoses (1) Metastatic lung cancer (metastasis from lung to other site) Status: Acute Qualifiers: Laterality: left Qualified Code(s): C34.92 - Malignant neoplasm of unspecified part of left bronchus or lung (2) Acute respiratory failure Status: Acute Qualifiers: Respiratory failure complication: hypoxia Qualified Code(s): J96.01 - Acute respiratory failure with hypoxia Core Measure Documentation - Palliative Care Palliative Care/ Comfort Measures: Not Applicable - Core Measures Any of the following diagnoses?: none Exam - Constitutional Vitals: Temp Pulse Resp BP Pulse Ox 97.8 F 110 H 18 142/90 95 08/09/17 10:40 08/09/17 10:40 08/09/17 08:02 08/09/17 10:40 08/09/17 07:54 General appearance: Present: no acute distress, well-nourished - EENT Eyes: Present: PERRL ENT: hearing intact, clear oral mucosa - Neck Neck: Present: supple, normal ROM - Respiratory Respiratory effort: normal Respiratory: bilateral: CTA - Cardiovascular Heart Sounds: Present: S1 & S2. Absent: rub, click - Extremities Extremities: pulses symmetrical, No edema Peripheral Pulses: within normal limits - Abdominal General gastrointestinal: Present: soft, non-tender, non-distended, normal bowel sounds Male genitourinary: Present: normal - Integumentary Integumentary: Present: clear, warm, dry - Musculoskeletal Musculoskeletal: gait normal, strength equal bilaterally - Psychiatric Psychiatric: appropriate mood/affect, intact judgment & insight - Neurologic Neurologic: CNII-XII intact, moves all extremities Plan Activity: no restrictions Weight Bearing Status: Weight Bear as Tolerated Diet: regular Follow up with: EMILEE MARTINEZ MD [Primary Care Provider] - 3-5 Days JAKY MINER MD [Staff Physician] - 7 Days JULIO C SANCHEZ MD [Staff Physician] - 7 Days Prescriptions: amLODIPine [Norvasc] 5 mg PO DAILY #30 tablet Cyclobenzaprine [Flexeril 10 MG TAB] 10 mg PO TID PRN #30 tablet PRN Reason: Muscle Spasm Oxycodone HCl/Acetaminophen [Percocet 10/325 mg] 1 each PO Q6HR PRN #16 tablet PRN Reason: Pain
--- NOTE | 2017-08-09 12:09 | Consultation ---
RADIATION ONCOLOGY CONSULTATION NOTE REFERRING PHYSICIAN: Shashi Kern M.D. 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 We are asked to see him in consultation by Dr. Kern for evaluation and consideration of palliative radiotherapy. RECOMMENDATIONS: The patient would benefit from palliative radiotherapy to his spine and hips to help with pain control. We will simulate him today and plan to start him tomorrow. He will not need to remain inhouse for his radiation treatments and can be discharged whenever he is deemed medically stable. HISTORY OF PRESENT ILLNESS: The patient is known to us from earlier this year when we gave him radiation to the left lung. 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 He went on to receive chemotherapy, but it appears he was not particularly compliant with the chemotherapy and in November, we gave him radiation to help progression of disease in the left lower lobe and left hilum. It appears that he was recommended chemotherapy after the radiation, but he did not receive chemotherapy. He has been having progressive pain in his back and hips and came into the Emergency Room last week for help. CT of the spine showed diffuse metastatic disease involving almost all vertebral bodies. No obvious cord compression was noted, although CT is not the most sensitive test for cord compression. CT of the chest showed consolidation in the left lower lung and new masses in the right lung in addition to the numerous lytic lesions. Since being in the hospital, he has had reasonably good pain control with opioids and today has a pain complaint of just 4. He denies hemoptysis. He denies headaches or changes in his vision, speech, or balance. He has been generally weak and has been having a harder and harder time walking around and going to the bathroom but his weakness is symmetric. He denies paresthesias in the arms or legs. PAST MEDICAL HISTORY: Hypertension, COPD, reflux, anemia. SOCIAL HISTORY: Former smoker, quit in 2016 when he had his surgery. Occasional alcohol use. FAMILY HISTORY: Noncontributory. MEDICATIONS: Percocet p.r.n. ALLERGIES: No known drug allergies. PHYSICAL EXAMINATION: GENERAL: The patient is lying in bed. He is in no acute distress. He is alert and oriented and cooperates fully with interviewer and the examiners. NEUROLOGIC: Speech is clear and fluent. Flow of thought is directed. No cranial nerve deficits noted. The patient has good strength in the arms. He has bilateral mild weakness at right hip flexion, but otherwise has no evidence of nerve root or cord deficits. Weakness in the legs is symmetric and probably a 4-, no sensory deficits noted. HEART: Regular rate and rhythm. CHEST: Lung exam shows decreased breath sounds in the left base. ABDOMEN: Soft, nontender, nondistended. EXTREMITIES: Show no clubbing, cyanosis, or edema. MUSCULOSKELETAL: No point tenderness on palpation of the spine, scapula, or hips, but this was right after the administration of opioids. ASSESSMENT AND PLAN: The patient has diffuse metastatic disease and likely would benefit from palliative radiotherapy. The challenge will be targeting the areas where he is most likely to benefit as he has diffuse involvement throughout his entire spine, hips, and the rest of his skeleton. For now, we will focus on the worse lesions in the spine, which appear to be in the mid to lower thoracic spine. We will also focus on the hips where he has larger lytic lesions breaking through the periosteum. Because of the size of the guerin, we will need to treat him in a 2-week course. We will start him tomorrow and he can finish his radiation. Upon discharge, I spoke with Dr. Mcarthur about his care and Dr. Mcarthur will arrange for followup with Medical Oncology after completion of radiation as he will need some additional systemic therapy___. JOB# [id number] VANESSA/SKYLAR
--- NOTE | 2017-08-09 13:28 | Hem/Onc Progress Note ---
Assessment and Plan - Patient Problems (1) Metastatic lung cancer (metastasis from lung to other site) Current Visit: Yes Status: Acute Qualifiers: Laterality: left Qualified Code(s): C34.92 - Malignant neoplasm of unspecified part of left bronchus or lung Plan to address problem: Plan is for XRT for pain control. Gave him appt to see us next week. He agrees. Subjective Interval history: Pain is stable. No new neuro deficits Objective - Constitutional Vitals: Last Vital Signs Temp 97.8 F 08/09/17 10:40 Pulse 110 H 08/09/17 10:40 Resp 18 08/09/17 08:02 BP 142/90 08/09/17 10:40 Pulse Ox 95 08/09/17 07:54 Pain Intensity (0-10): 5/10 - EENT ENT: hearing intact Lymph node exam: negative cervical - Neck Neck: supple - Respiratory Respiratory effort: Positive: normal Respiratory: bilateral: CTA - Labs Lab Results: Laboratory Results - last 24 hr 08/09/17 08/09/17 06:07 06:07 WBC 14.2 H RBC 4.09 Hgb 10.4 L Hct 32.8 L MCV 80 L MCH 25 L MCHC 32 RDW 17.1 H Plt Count 407 Add Manual Diff Complete Total Counted 100 Seg Neutrophils % Radiologic Technician Seg Neuts % (Manual) 87.0 H Band Neutrophils % 1.0 Lymphocytes % (Manual) 5.0 L Reactive Lymphs % (Man) 0 Monocytes % (Manual) 7.0 Eosinophils % (Manual) 0 Basophils % (Manual) 0 Metamyelocytes % 0 Myelocytes % 0 Promyelocytes % 0 Blast Cells % 0 Nucleated RBC % Not Reportable Seg Neutrophils # Man 12.4 H Band Neutrophils # 0.1 Lymphocytes # (Manual) 0.7 L Abs React Lymphs (Man) 0.0 Monocytes # (Manual) 1.0 H Eosinophils # (Manual) 0.0 Basophils # (Manual) 0.0 Metamyelocytes # 0.0 Myelocytes # 0.0 Promyelocytes # 0.0 Blast Cells # 0.0 WBC Morphology Not Reportable Hypersegmented Neuts Not Reportable Hyposegmented Neuts Not Reportable Hypogranular Neuts Not Reportable Smudge Cells Not Reportable Toxic Granulation Not Reportable Toxic Vacuolation Not Reportable Dohle Bodies Not Reportable Pelger-Huet Anomaly Not Reportable Ayan Rods Not Reportable Platelet Estimate Not Reportable Clumped Platelets Not Reportable Plt Clumps, EDTA Not Reportable Large Platelets Not Reportable Giant Platelets Not Reportable Platelet Satelliting Not Reportable Plt Morphology Comment Not Reportable RBC Morphology Not Reportable Dimorphic RBCs Not Reportable Polychromasia Not Reportable Hypochromasia 1+ Poikilocytosis Not Reportable Anisocytosis 1+ Microcytosis Not Reportable Macrocytosis Not Reportable Spherocytes Not Reportable Pappenheimer Bodies Not Reportable Sickle Cells Not Reportable Target Cells Not Reportable Tear Drop Cells Not Reportable Ovalocytes Not Reportable Helmet Cells Not Reportable Meyer-[place] Bodies Not Reportable [place] Rings Not Reportable [place] Cells Not Reportable Bite Cells Not Reportable Crenated Cell Not Reportable Elliptocytes Not Reportable Acanthocytes (Spur) Not Reportable Rouleaux Not Reportable Hemoglobin C Crystals Not Reportable Schistocytes Not Reportable Malaria parasites Not Reportable Shukri Bodies Not Reportable Hem Pathologist Commnt No Sodium 140 Potassium 3.7 Chloride 98.8 Carbon Dioxide 23 Anion Gap 22 BUN 22 H Creatinine 0.3 L Estimated GFR > 60 BUN/Creatinine Ratio 73 Glucose 110 H Calcium 9.1
--- NOTE | 2017-08-09 16:24 | Progress Note ---
Assessment and Plan Acute respiratory failure with hypoxia Lung Cancer s/p LLLobectomy Metastatic Lung CA (Bone mets) Hypokalemia LLL pneumonia vs Atelectasis (LLL process is chronic and he is clinically improving) - continue supplemental oxygen to keep sats > 90% - continue bronchodilators and pulmonary toilet - prn BIPAP if decompensates - prn analgesia (adviced him to give some more time for RTX to take effect) - utility of bronchoscopy unclear in setting of known metastatic disease (if clinically significant increase in atelectasis then perhaps for airway clearance ) - continue RTX per oncologist - continue other care per attending / other consultants ....25' Subjective Date of service: 08/09/17 Principal diagnosis: Acute Hypoxemic Resp Failure; Pneumonia; Metastatic Lung CA Interval history: Patient is seen today for: Acute Hypoxemic Resp Failure; Pneumonia; Metastatic Lung CA; s/p Left Lower lobectomy Seen and examined at bedside; 24hour events reviewed; nursing and respiratory care staff consulted; no adverse overnight events reported to me; feels a little better; arrangements being made for outpatient f/up states that his pain is persistent and only slightly controlled with analgesics; expected much more rapid pain improvement post RTX; No N/V/F/C Objective Vital Signs - 12hr 08/09/17 08/09/17 08/09/17 05:03 07:44 07:54 Temperature 97.8 F 97.8 F Pulse Rate 121 H 121 H Pulse Rate [ 111 H Bilateral Throughout] Respiratory 20 20 Rate Respiratory 18 Rate [Bilateral Throughout] Blood Pressure 169/103 160/95 Blood Pressure [Right] O2 Sat by Pulse 95 95 Oximetry 08/09/17 08/09/17 08/09/17 08:02 10:40 13:47 Temperature 97.8 F Pulse Rate 110 H Pulse Rate [ 113 H 115 H Bilateral Throughout] Respiratory Rate Respiratory 18 Rate [Bilateral Throughout] Blood Pressure Blood Pressure 142/90 [Right] O2 Sat by Pulse Oximetry 08/09/17 08/09/17 08/09/17 13:51 14:00 15:18 Temperature 98.9 F Pulse Rate Pulse Rate [ 125 H Bilateral Throughout] Respiratory 22 Rate Respiratory 18 Rate [Bilateral Throughout] Blood Pressure 170/102 Blood Pressure [Right] O2 Sat by Pulse 96 Oximetry 08/09/17 16:10 Temperature Pulse Rate 100 H Pulse Rate [ Bilateral Throughout] Respiratory Rate Respiratory Rate [Bilateral Throughout] Blood Pressure 170/103 Blood Pressure [Right] O2 Sat by Pulse Oximetry Constitutional: no acute distress, alert Eyes: non-icteric ENT: oropharynx moist, other (mallampatti 2 oropharynx) Neck: supple, no lymphadenopathy, no JVD, other (no thyromegaly) Effort: mildly labored Ascultation: Left: diminished breath sounds (base), Bilateral: rhonchi (scant ) , other (prolonged exp phase) Percussion: Right: not dull, Left: dull (base) Cardiovascular: regular rate and rhythm, other (S1,S2, no murmurs, gallops or rubs) Gastrointestinal: normoactive bowel sounds, soft, non-tender, other (No palpable HSM) Integumentary: normal, other (Left chest wall scar) Extremities: no cyanosis, no edema, pulses normal, no ischemia or petechiae Neurologic: normal mental status, non-focal exam, pupils equal and round, CN II- XII normal, motor strength normal and, other (No HSM) Psychiatric: mood appropriate, affect normal CBC and BMP: 08/11/17 05:36 08/11/17 05:36 ABG, PT/INR, D-dimer: PT/INR, D-dimer PT 14.2 Sec. (12.2-14.9) 08/02/17 13:18 INR 1.05 (0.87-1.13) 08/02/17 13:18 Abnormal lab findings: Abnormal Labs 07/31/17 07/31/17 07/31/17 12:09 12:09 12:09 WBC Hgb 10.2 L Hct 31.6 L MCV 80 L MCH 26 L MCHC RDW 16.9 H Plt Count Lymph % (Auto) [place] % (Auto) Lymph # Seg Neutrophils % Seg Neuts % (Manual) Lymphocytes % (Manual) Seg Neutrophils # Man Lymphocytes # (Manual) Monocytes # (Manual) Potassium 2.9 L* Chloride 96.2 L BUN Creatinine 0.4 L Glucose 104 H Magnesium ALT < 5 L Alkaline Phosphatase 279 H Albumin 3.3 L 08/01/17 08/02/17 08/02/17 10:42 06:17 06:17 WBC Hgb 10.8 L Hct 33.1 L MCV 80 L MCH 26 L MCHC RDW 17.1 H Plt Count Lymph % (Auto) 5.0 L [place] % (Auto) 8.7 H Lymph # 0.4 L Seg Neutrophils % 83.2 H Seg Neuts % (Manual) Lymphocytes % (Manual) Seg Neutrophils # Man Lymphocytes # (Manual) Monocytes # (Manual) Potassium 3.1 L 3.2 L Chloride 91.0 L BUN 6 L Creatinine 0.2 L Glucose Magnesium 1.60 L 1.60 L ALT < 5 L Alkaline Phosphatase 283 H Albumin 3.5 L 08/07/17 08/07/17 08/08/17 05:29 05:29 05:21 WBC 12.6 H 11.5 H Hgb 10.8 L 10.7 L Hct 34.1 L 34.8 L MCV 79 L 79 L MCH 25 L 24 L MCHC 31 L RDW 16.9 H 17.1 H Plt Count 454 H 460 H Lymph % (Auto) [place] % (Auto) Lymph # Seg Neutrophils % Seg Neuts % (Manual) 92.0 H 93.0 H Lymphocytes % (Manual) 2.0 L 2 L Seg Neutrophils # Man 11.6 H 10.7 H Lymphocytes # (Manual) 0.3 L 0.2 L Monocytes # (Manual) Potassium Chloride 96.1 L BUN Creatinine 0.3 L Glucose 116 H Magnesium ALT Alkaline Phosphatase Albumin 08/08/17 08/09/17 08/09/17 05:21 06:07 06:07 WBC 14.2 H Hgb 10.4 L Hct 32.8 L MCV 80 L MCH 25 L MCHC RDW 17.1 H Plt Count Lymph % (Auto) [place] % (Auto) Lymph # Seg Neutrophils % Seg Neuts % (Manual) 87.0 H Lymphocytes % (Manual) 5.0 L Seg Neutrophils # Man 12.4 H Lymphocytes # (Manual) 0.7 L Monocytes # (Manual) 1.0 H Potassium Chloride BUN 21 H 22 H Creatinine 0.3 L 0.3 L Glucose 107 H 110 H Magnesium ALT Alkaline Phosphatase Albumin
[2017-08-10] MEDS: ROXICODONE PO PRN (00:45)
[2017-08-10] MEDS: FLEXERIL PO PRN (00:45)
[2017-08-10] MEDS: APRESOLINE IV PRN (01:20)
[2017-08-10] MEDS: PERCOCET 5/325 PO PRN (01:22)
[2017-08-10] MEDS: DUONEB *Not for PRN Use IH SCH ×4 (02:17→20:49)
[2017-08-10] MEDS: DECADRON IV SCH ×4 (06:56→17:42)
[2017-08-10 07:23] LABS: Hematocrit 31.6 % (35.5-45.6); Hemoglobin 10.2 gm/dl (11.8-15.2); Mean Corpuscular HGB Conc 32 % (32-34); Mean Corpuscular Volume 80 fl (84-94); Platelet Count 362 K/mm3 (140-440); Red Blood Count 3.98 M/mm3 (3.65-5.03); Red Cell Distribution Width 17.3 % (13.2-15.2)
[2017-08-10 07:32] LABS: Mean Corpuscular Hemoglobin 26 pg (28-32)
[2017-08-10 07:45] LABS: BUN/Creatinine Ratio 73; Blood Urea Nitrogen 22 mg/dL (9-20); Calcium 9.1 mg/dL (8.4-10.2); Hemolysis Index 2
[2017-08-10 08:17] LABS: Basophils % (Manual) 0 % (0.0-1.8); Total Cells Counted 100
[2017-08-10 08:18] LABS: Eosinophils % (Manual) 0 % (0.0-4.3)
[2017-08-10 08:21] LABS: Anisocytosis 1+; Helmet Cells Few; Ovalocytes 1+
[2017-08-10] MEDS: NORVASC PO SCH ×3 (08:53→12:06)
--- NOTE | 2017-08-10 11:17 | Progress Note ---
Assessment and Plan --Metastatic lung cancer with bone mets and involvement of the vertebrae. XRT today --Acute respiratory failure with hypoxia; cont O2 support --History of metastatic lung cancer; Continue supportive care, pulmonary and oncology consultation --Extensive bone metastases. As above --DVT prophylaxis; Lovenox --Full CODE STATUS - Patient Problems (1) Metastatic lung cancer (metastasis from lung to other site) Current Visit: Yes Status: Acute Qualifiers: Laterality: left Qualified Code(s): C34.92 - Malignant neoplasm of unspecified part of left bronchus or lung (2) Acute respiratory failure Current Visit: No Status: Acute Qualifiers: Respiratory failure complication: hypoxia Qualified Code(s): J96.01 - Acute respiratory failure with hypoxia Subjective Date of service: 08/09/17 Principal diagnosis: Acute Hypoxemic Resp Failure; Pneumonia; Metastatic Lung CA Interval history: no new issues overnight Objective - Constitutional Vitals: Vital Signs - 12hr 08/10/17 08/10/17 08/10/17 00:21 00:45 01:20 Temperature 98.7 F Pulse Rate 143 H Pulse Rate [ Anterior Bilateral Throughout] Respiratory 24 24 Rate Respiratory Rate [Anterior Bilateral Throughout] Blood Pressure 213/122 O2 Sat by Pulse Oximetry 08/10/17 08/10/17 08/10/17 01:22 04:50 07:24 Temperature 98.1 F Pulse Rate 123 H Pulse Rate [ 120 H Anterior Bilateral Throughout] Respiratory 24 22 Rate Respiratory 20 Rate [Anterior Bilateral Throughout] Blood Pressure 186/123 O2 Sat by Pulse 96 99 Oximetry 08/10/17 08/10/17 08/10/17 07:28 07:38 08:54 Temperature 98.2 F Pulse Rate 121 H 121 H Pulse Rate [ 124 H Anterior Bilateral Throughout] Respiratory 19 Rate Respiratory 20 Rate [Anterior Bilateral Throughout] Blood Pressure 163/96 163/96 O2 Sat by Pulse 98 Oximetry General appearance: Present: no acute distress, well-nourished - EENT Eyes: PERRL, EOM intact ENT: hearing intact, clear oral mucosa Ears: bilateral: normal - Neck Neck: supple, normal ROM - Respiratory Respiratory effort: normal Respiratory: bilateral: CTA - Breasts Breasts: normal - Cardiovascular Rhythm: regular Heart Sounds: Present: S1 & S2. Absent: gallop, rub Extremities: pulses intact, No edema, normal color, Full ROM - Gastrointestinal General gastrointestinal: Present: soft, non-tender, non-distended, normal bowel sounds - Genitourinary Male genitourinary: normal - Integumentary Integumentary: clear, warm, dry - Musculoskeletal Musculoskeletal: 1, strength equal bilaterally - Neurologic Neurologic: moves all extremities - Psychiatric Psychiatric: memory intact, appropriate mood/affect, intact judgment & insight - Labs CBC & Chem 7: 08/10/17 06:31 08/10/17 06:31 Labs: Abnormal lab results 08/09/17 08/10/17 08/10/17 Range/Units 23:02 06:31 06:31 WBC 15.0 H (4.5-11.0) K/mm3 Hgb 10.2 L (11.8-15.2) gm/dl Hct 31.6 L (35.5-45.6) % MCV 80 L (84-94) fl MCH 26 L (28-32) pg RDW 17.3 H (13.2-15.2) % Seg Neuts % (Manual) 90.0 H (40.0-70.0) % Lymphocytes % (Manual) 2.0 L (13.4-35.0) % Monocytes % (Manual) 8.0 H (0.0-7.3) % Seg Neutrophils # Man 13.5 H (1.8-7.7) K/mm3 Lymphocytes # (Manual) 0.3 L (1.2-5.4) K/mm3 Monocytes # (Manual) 1.2 H (0.0-0.8) K/mm3 BUN 22 H (9-20) mg/dL Creatinine 0.3 L (0.8-1.5) mg/dL POC Glucose 108 H (70-105)
--- NOTE | 2017-08-10 11:18 | Event Note ---
Date: 08/10/17 Patient seen and examined. Plans for patient to discharge to home today
[2017-08-10] MEDS: MAG-OX PO SCH (12:04)
[2017-08-10] MEDS: LOVENOX SUB-Q SCH (12:04)
--- NOTE | 2017-08-10 12:09 | Progress Note ---
Assessment and Plan Acute respiratory failure with hypoxia Lung Cancer s/p LLLobectomy Metastatic Lung CA (Bone mets) Hypokalemia LLL pneumonia vs Atelectasis (LLL process is chronic and he is clinically improving) - continue supplemental oxygen to keep sats > 90% - continue bronchodilators and pulmonary toilet - prn BIPAP if decompensation - prn analgesia (again advised him to give some more time for RTX to take effect ) - utility of bronchoscopy unclear in setting of known metastatic disease (if clinically significant increase in atelectasis then perhaps for airway clearance ) - continue RTX per oncologist - continue other care per attending / other consultants ....25' Subjective Date of service: 08/10/17 Principal diagnosis: Acute Hypoxemic Resp Failure; Pneumonia; Metastatic Lung CA Interval history: Patient is seen today for: Acute Hypoxemic Resp Failure; Pneumonia; Metastatic Lung CA; s/p Left Lower lobectomy Seen and examined at bedside; 24hour events reviewed; nursing and respiratory care staff consulted; no adverse overnight events reported to me; feels a little better today; no hemoptysis; No N/V/F/C Objective Vital Signs - 12hr 08/10/17 08/10/17 08/10/17 00:21 00:45 01:20 Temperature 98.7 F Pulse Rate 143 H Pulse Rate [ Anterior Bilateral Throughout] Respiratory 24 24 Rate Respiratory Rate [Anterior Bilateral Throughout] Blood Pressure 213/122 O2 Sat by Pulse Oximetry 08/10/17 08/10/17 08/10/17 01:22 04:50 07:24 Temperature 98.1 F Pulse Rate 123 H Pulse Rate [ 120 H Anterior Bilateral Throughout] Respiratory 24 22 Rate Respiratory 20 Rate [Anterior Bilateral Throughout] Blood Pressure 186/123 O2 Sat by Pulse 96 99 Oximetry 08/10/17 08/10/17 08/10/17 07:28 07:38 08:54 Temperature 98.2 F Pulse Rate 121 H 121 H Pulse Rate [ 124 H Anterior Bilateral Throughout] Respiratory 19 Rate Respiratory 20 Rate [Anterior Bilateral Throughout] Blood Pressure 163/96 163/96 O2 Sat by Pulse 98 Oximetry Constitutional: no acute distress, alert Eyes: non-icteric ENT: oropharynx moist, other (mallampatti 2 oropharynx) Neck: supple, no lymphadenopathy, no JVD, other (no thyromegaly) Effort: mildly labored Ascultation: Left: diminished breath sounds (base), Bilateral: rhonchi (scant ) , other (prolonged exp phase) Percussion: Right: not dull, Left: dull (base) Cardiovascular: regular rate and rhythm, other (S1,S2, no murmurs, gallops or rubs) Gastrointestinal: normoactive bowel sounds, soft, non-tender, other (No palpable HSM) Integumentary: normal, other (Left chest wall scar) Extremities: no cyanosis, no edema, pulses normal, no ischemia or petechiae Neurologic: normal mental status, non-focal exam, pupils equal and round, CN II- XII normal, motor strength normal and, other (No HSM) Psychiatric: mood appropriate, affect normal CBC and BMP: 08/11/17 05:36 08/11/17 05:36 ABG, PT/INR, D-dimer: PT/INR, D-dimer PT 14.2 Sec. (12.2-14.9) 08/02/17 13:18 INR 1.05 (0.87-1.13) 08/02/17 13:18 Abnormal lab findings: Abnormal Labs 07/31/17 07/31/17 07/31/17 12:09 12:09 12:09 WBC Hgb 10.2 L Hct 31.6 L MCV 80 L MCH 26 L MCHC RDW 16.9 H Plt Count Lymph % (Auto) [place] % (Auto) Lymph # Seg Neutrophils % Seg Neuts % (Manual) Lymphocytes % (Manual) Monocytes % (Manual) Seg Neutrophils # Man Lymphocytes # (Manual) Monocytes # (Manual) Potassium 2.9 L* Chloride 96.2 L BUN Creatinine 0.4 L Glucose 104 H POC Glucose Magnesium ALT < 5 L Alkaline Phosphatase 279 H Albumin 3.3 L 08/01/17 08/02/17 08/02/17 10:42 06:17 06:17 WBC Hgb 10.8 L Hct 33.1 L MCV 80 L MCH 26 L MCHC RDW 17.1 H Plt Count Lymph % (Auto) 5.0 L [place] % (Auto) 8.7 H Lymph # 0.4 L Seg Neutrophils % 83.2 H Seg Neuts % (Manual) Lymphocytes % (Manual) Monocytes % (Manual) Seg Neutrophils # Man Lymphocytes # (Manual) Monocytes # (Manual) Potassium 3.1 L 3.2 L Chloride 91.0 L BUN 6 L Creatinine 0.2 L Glucose POC Glucose Magnesium 1.60 L 1.60 L ALT < 5 L Alkaline Phosphatase 283 H Albumin 3.5 L 08/07/17 08/07/17 08/08/17 05:29 05:29 05:21 WBC 12.6 H 11.5 H Hgb 10.8 L 10.7 L Hct 34.1 L 34.8 L MCV 79 L 79 L MCH 25 L 24 L MCHC 31 L RDW 16.9 H 17.1 H Plt Count 454 H 460 H Lymph % (Auto) [place] % (Auto) Lymph # Seg Neutrophils % Seg Neuts % (Manual) 92.0 H 93.0 H Lymphocytes % (Manual) 2.0 L 2 L Monocytes % (Manual) Seg Neutrophils # Man 11.6 H 10.7 H Lymphocytes # (Manual) 0.3 L 0.2 L Monocytes # (Manual) Potassium Chloride 96.1 L BUN Creatinine 0.3 L Glucose 116 H POC Glucose Magnesium ALT Alkaline Phosphatase Albumin 08/08/17 08/09/17 08/09/17 05:21 06:07 06:07 WBC 14.2 H Hgb 10.4 L Hct 32.8 L MCV 80 L MCH 25 L MCHC RDW 17.1 H Plt Count Lymph % (Auto) [place] % (Auto) Lymph # Seg Neutrophils % Seg Neuts % (Manual) 87.0 H Lymphocytes % (Manual) 5.0 L Monocytes % (Manual) Seg Neutrophils # Man 12.4 H Lymphocytes # (Manual) 0.7 L Monocytes # (Manual) 1.0 H Potassium Chloride BUN 21 H 22 H Creatinine 0.3 L 0.3 L Glucose 107 H 110 H POC Glucose Magnesium ALT Alkaline Phosphatase Albumin 08/09/17 08/10/17 08/10/17 23:02 06:31 06:31 WBC 15.0 H Hgb 10.2 L Hct 31.6 L MCV 80 L MCH 26 L MCHC RDW 17.3 H Plt Count Lymph % (Auto) [place] % (Auto) Lymph # Seg Neutrophils % Seg Neuts % (Manual) 90.0 H Lymphocytes % (Manual) 2.0 L Monocytes % (Manual) 8.0 H Seg Neutrophils # Man 13.5 H Lymphocytes # (Manual) 0.3 L Monocytes # (Manual) 1.2 H Potassium Chloride BUN 22 H Creatinine 0.3 L Glucose POC Glucose 108 H Magnesium ALT Alkaline Phosphatase Albumin
--- NOTE | 2017-08-10 13:32 | Hem/Onc Progress Note ---
Assessment and Plan - Patient Problems (1) Metastatic lung cancer (metastasis from lung to other site) Current Visit: Yes Status: Acute Qualifiers: Laterality: left Qualified Code(s): C34.92 - Malignant neoplasm of unspecified part of left bronchus or lung Plan to address problem: Outpatient follow up next week. He agrees. Compliance with follow up stressed. Subjective Date of service: 08/10/17 Interval history: He received XRT today. Has numerous issues with transportation. Pain stable. Objective - Constitutional Vitals: Last Vital Signs Temp 98.2 F 08/10/17 07:28 Pulse 121 H 08/10/17 08:54 Resp 20 08/10/17 07:38 BP 163/96 08/10/17 08:54 Pulse Ox 98 08/10/17 07:28 - EENT Eyes: PERRL ENT: hearing intact Lymph node exam: negative cervical - Neck Neck: supple - Respiratory Respiratory effort: Positive: normal - Labs Lab Results: Laboratory Results - last 24 hr 08/09/17 08/10/17 08/10/17 23:02 06:31 06:31 WBC 15.0 H RBC 3.98 Hgb 10.2 L Hct 31.6 L MCV 80 L MCH 26 L MCHC 32 RDW 17.3 H Plt Count 362 Add Manual Diff Complete Total Counted 100 Seg Neutrophils % [employer] Seg Neuts % (Manual) 90.0 H Band Neutrophils % 0 Lymphocytes % (Manual) 2.0 L Reactive Lymphs % (Man) 0 Monocytes % (Manual) 8.0 H Eosinophils % (Manual) 0 Basophils % (Manual) 0 Metamyelocytes % 0 Myelocytes % 0 Promyelocytes % 0 Blast Cells % 0 Nucleated RBC % Not Reportable Seg Neutrophils # Man 13.5 H Band Neutrophils # 0.0 Lymphocytes # (Manual) 0.3 L Abs React Lymphs (Man) 0.0 Monocytes # (Manual) 1.2 H Eosinophils # (Manual) 0.0 Basophils # (Manual) 0.0 Metamyelocytes # 0.0 Myelocytes # 0.0 Promyelocytes # 0.0 Blast Cells # 0.0 WBC Morphology Not Reportable Hypersegmented Neuts Not Reportable Hyposegmented Neuts Not Reportable Hypogranular Neuts Not Reportable Smudge Cells Not Reportable Toxic Granulation Not Reportable Toxic Vacuolation Not Reportable Dohle Bodies Not Reportable Pelger-Huet Anomaly Not Reportable Ayan Rods Not Reportable Platelet Estimate Appears normal Clumped Platelets Not Reportable Plt Clumps, EDTA Not Reportable Large Platelets Not Reportable Giant Platelets Not Reportable Platelet Satelliting Not Reportable Plt Morphology Comment Not Reportable RBC Morphology Not Reportable Dimorphic RBCs Not Reportable Polychromasia Not Reportable Hypochromasia Not Reportable Poikilocytosis Not Reportable Anisocytosis 1+ Microcytosis Not Reportable Macrocytosis Not Reportable Spherocytes Not Reportable Pappenheimer Bodies Not Reportable Sickle Cells Not Reportable Target Cells Not Reportable Tear Drop Cells Not Reportable Ovalocytes 1+ Helmet Cells Few Meyer-Thebes Bodies Not Reportable [place] Rings Not Reportable [place] Cells Not Reportable Bite Cells Not Reportable Crenated Cell Not Reportable Elliptocytes Rare Acanthocytes (Spur) Not Reportable Rouleaux Not Reportable Hemoglobin C Crystals Not Reportable Schistocytes Not Reportable Malaria parasites Not Reportable Shukri Bodies Not Reportable Hem Pathologist Commnt No Sodium 144 Potassium 4.3 Chloride 101.5 Carbon Dioxide 22 Anion Gap 25 BUN 22 H Creatinine 0.3 L Estimated GFR > 60 BUN/Creatinine Ratio 73 Glucose 94 POC Glucose 108 H Calcium 9.1
[2017-08-10] MEDS: MORPHINE IV PRN (18:17)
[2017-08-11] MEDS: DUONEB *Not for PRN Use IH SCH ×4 (02:15→19:57)
[2017-08-11] MEDS: DECADRON IV SCH ×5 (03:52→23:41)
[2017-08-11] MEDS: PERCOCET 5/325 PO PRN ×2 (03:58→11:23)
[2017-08-11 06:22] LABS: Eosinophils % (Auto) 0.2 % (0.0-4.3); Hematocrit 34.7 % (35.5-45.6); Hemoglobin 10.7 gm/dl (11.8-15.2); Lymphocytes # (Auto) 0.2 K/mm3 (1.2-5.4); Lymphocytes % (Auto) 1.2 % (13.4-35.0); Mean Corpuscular HGB Conc 31 % (32-34); Mean Corpuscular Volume 80 fl (84-94); Monocytes # (Auto) 1.6 K/mm3 (0.0-0.8); Monocytes % (Auto) 10.7 % (0.0-7.3); Platelet Count 419 K/mm3 (140-440); Red Blood Count 4.36 M/mm3 (3.65-5.03); Red Cell Distribution Width 17.9 % (13.2-15.2)
[2017-08-11 06:28] LABS: Mean Corpuscular Hemoglobin 25 pg (28-32)
[2017-08-11 06:36] LABS: BUN/Creatinine Ratio 77; Blood Urea Nitrogen 23 mg/dL (9-20); Calcium 8.9 mg/dL (8.4-10.2); Hemolysis Index 11
[2017-08-11] MEDS: FLEXERIL PO PRN (08:22)
--- NOTE | 2017-08-11 11:08 | Progress Note ---
Assessment and Plan Assessment and plan: --Metastatic lung cancer with bone mets and involvement of the vertebrae. XRT today --Acute respiratory failure with hypoxia; cont O2 support, case management attempting to arrange for home O2. --History of metastatic lung cancer; Continue supportive care, pulmonary and oncology consultation --Extensive bone metastases. As above --DVT prophylaxis; Lovenox --Full CODE STATUS - Patient Problems (1) Metastatic lung cancer (metastasis from lung to other site) Current Visit: Yes Status: Acute Qualifiers: Laterality: left Qualified Code(s): C34.92 - Malignant neoplasm of unspecified part of left bronchus or lung (2) Acute respiratory failure Current Visit: No Status: Acute Qualifiers: Respiratory failure complication: hypoxia Qualified Code(s): J96.01 - Acute respiratory failure with hypoxia History Interval history: no new issues overnight Hospitalist Physical - Constitutional Vitals: Temp Pulse Resp BP Pulse Ox 97.9 F 116 H 18 142/96 98 08/11/17 07:48 08/11/17 09:05 08/11/17 09:05 08/11/17 07:48 08/11/17 08:53 General appearance: Present: no acute distress, well-nourished - EENT Eyes: Present: PERRL, EOM intact ENT: hearing intact, clear oral mucosa, dentition normal - Neck Neck: Present: supple, normal ROM - Respiratory Respiratory effort: normal Respiratory: bilateral: CTA - Cardiovascular Rhythm: regular Heart Sounds: Present: S1 & S2. Absent: gallop, rub - Extremities Extremities: no ischemia, No edema, Full ROM - Abdominal General gastrointestinal: soft, non-tender, non-distended, normal bowel sounds - Integumentary Integumentary: Present: clear, warm, dry - Neurologic Neurologic: CNII-XII intact, moves all extremities Results - Labs CBC & Chem 7: 08/11/17 05:36 08/11/17 05:36 Labs: Laboratory Last Values WBC 14.8 K/mm3 (4.5-11.0) H 08/11/17 05:36 RBC 4.36 M/mm3 (3.65-5.03) 08/11/17 05:36 Hgb 10.7 gm/dl (11.8-15.2) L 08/11/17 05:36 Hct 34.7 % (35.5-45.6) L 08/11/17 05:36 MCV 80 fl (84-94) L 08/11/17 05:36 MCH 25 pg (28-32) L 08/11/17 05:36 MCHC 31 % (32-34) L 08/11/17 05:36 RDW 17.9 % (13.2-15.2) H 08/11/17 05:36 Plt Count 419 K/mm3 (140-440) 08/11/17 05:36 Lymph % (Auto) 1.2 % (13.4-35.0) L 08/11/17 05:36 [place] % (Auto) 10.7 % (0.0-7.3) H 08/11/17 05:36 Eos % (Auto) 0.2 % (0.0-4.3) 08/11/17 05:36 Baso % (Auto) 0.0 % (0.0-1.8) 08/11/17 05:36 Lymph # 0.2 K/mm3 (1.2-5.4) L 08/11/17 05:36 [place] # 1.6 K/mm3 (0.0-0.8) H 08/11/17 05:36 Eos # 0.0 K/mm3 (0.0-0.4) 08/11/17 05:36 Baso # 0.0 K/mm3 (0.0-0.1) 08/11/17 05:36 Add Manual Diff Complete 08/10/17 06:31 Total Counted 100 08/10/17 06:31 Seg Neutrophils % 87.9 % (40.0-70.0) H 08/11/17 05:36 Seg Neuts % (Manual) 90.0 % (40.0-70.0) H 08/10/17 06:31 Band Neutrophils % 0 % 08/10/17 06:31 Lymphocytes % (Manual) 2.0 % (13.4-35.0) L 08/10/17 06:31 Reactive Lymphs % (Man) 0 % 08/10/17 06:31 Monocytes % (Manual) 8.0 % (0.0-7.3) H 08/10/17 06:31 Eosinophils % (Manual) 0 % (0.0-4.3) 08/10/17 06:31 Basophils % (Manual) 0 % (0.0-1.8) 08/10/17 06:31 Metamyelocytes % 0 % 08/10/17 06:31 Myelocytes % 0 % 08/10/17 06:31 Promyelocytes % 0 % 08/10/17 06:31 Blast Cells % 0 % 08/10/17 06:31 Nucleated RBC % Not Reportable 08/10/17 06:31 Seg Neutrophils # 13.0 K/mm3 (1.8-7.7) H 08/11/17 05:36 Seg Neutrophils # Man 13.5 K/mm3 (1.8-7.7) H 08/10/17 06:31 Band Neutrophils # 0.0 K/mm3 08/10/17 06:31 Lymphocytes # (Manual) 0.3 K/mm3 (1.2-5.4) L 08/10/17 06:31 Abs React Lymphs (Man) 0.0 K/mm3 08/10/17 06:31 Monocytes # (Manual) 1.2 K/mm3 (0.0-0.8) H 08/10/17 06:31 Eosinophils # (Manual) 0.0 K/mm3 (0.0-0.4) 08/10/17 06:31 Basophils # (Manual) 0.0 K/mm3 (0.0-0.1) 08/10/17 06:31 Metamyelocytes # 0.0 K/mm3 08/10/17 06:31 Myelocytes # 0.0 K/mm3 08/10/17 06:31 Promyelocytes # 0.0 K/mm3 08/10/17 06:31 Blast Cells # 0.0 K/mm3 08/10/17 06:31 WBC Morphology Not Reportable 08/10/17 06:31 Hypersegmented Neuts Not Reportable 08/10/17 06:31 Hyposegmented Neuts Not Reportable 08/10/17 06:31 Hypogranular Neuts Not Reportable 08/10/17 06:31 Smudge Cells Not Reportable 08/10/17 06:31 Toxic Granulation Not Reportable 08/10/17 06:31 Toxic Vacuolation Not Reportable 08/10/17 06:31 Dohle Bodies Not Reportable 08/10/17 06:31 Pelger-Huet Anomaly Not Reportable 08/10/17 06:31 Ayan Rods Not Reportable 08/10/17 06:31 Platelet Estimate Appears normal 08/10/17 06:31 Clumped Platelets Not Reportable 08/10/17 06:31 Plt Clumps, EDTA Not Reportable 08/10/17 06:31 Large Platelets Not Reportable 08/10/17 06:31 Giant Platelets Not Reportable 08/10/17 06:31 Platelet Satelliting Not Reportable 08/10/17 06:31 Plt Morphology Comment Not Reportable 08/10/17 06:31 RBC Morphology Not Reportable 08/10/17 06:31 Dimorphic RBCs Not Reportable 08/10/17 06:31 Polychromasia Not Reportable 08/10/17 06:31 Hypochromasia Not Reportable 08/10/17 06:31 Poikilocytosis Not Reportable 08/10/17 06:31 Anisocytosis 1+ 08/10/17 06:31 Microcytosis Not Reportable 08/10/17 06:31 Macrocytosis Not Reportable 08/10/17 06:31 Spherocytes Not Reportable 08/10/17 06:31 Pappenheimer Bodies Not Reportable 08/10/17 06:31 Sickle Cells Not Reportable 08/10/17 06:31 Target Cells Not Reportable 08/10/17 06:31 Tear Drop Cells Not Reportable 08/10/17 06:31 Ovalocytes 1+ 08/10/17 06:31 Helmet Cells Few 08/10/17 06:31 [place] Bodies Not Reportable 08/10/17 06:31 [place] Rings Not Reportable 08/10/17 06:31 [place] Cells Not Reportable 08/10/17 06:31 Bite Cells Not Reportable 08/10/17 06:31 Crenated Cell Not Reportable 08/10/17 06:31 Elliptocytes Rare 08/10/17 06:31 Acanthocytes (Spur) Not Reportable 08/10/17 06:31 Rouleaux Not Reportable 08/10/17 06:31 Hemoglobin C Crystals Not Reportable 08/10/17 06:31 Schistocytes Not Reportable 08/10/17 06:31 Malaria parasites Not Reportable 08/10/17 06:31 Shukri Bodies Not Reportable 08/10/17 06:31 Hem Pathologist Commnt No 08/10/17 06:31 PT 14.2 Sec. (12.2-14.9) 08/02/17 13:18 INR 1.05 (0.87-1.13) 08/02/17 13:18 APTT 30.7 Sec. (24.2-36.6) 08/02/17 13:18 Sodium 141 mmol/L (137-145) 08/11/17 05:36 Potassium 3.6 mmol/L (3.6-5.0) 08/11/17 05:36 Chloride 100.0 mmol/L (98-107) 08/11/17 05:36 Carbon Dioxide 24 mmol/L (22-30) 08/11/17 05:36 Anion Gap 21 mmol/L 08/11/17 05:36 BUN 23 mg/dL (9-20) H 08/11/17 05:36 Creatinine 0.3 mg/dL (0.8-1.5) L 08/11/17 05:36 Estimated GFR > 60 ml/min 08/11/17 05:36 BUN/Creatinine Ratio 77 % 08/11/17 05:36 Glucose 87 mg/dL (75-100) 08/11/17 05:36 POC Glucose 108 (70-105) H 08/09/17 23:02 Calcium 8.9 mg/dL (8.4-10.2) 08/11/17 05:36 Magnesium 1.60 mg/dL (1.7-2.3) L 08/02/17 06:17 Total Bilirubin 0.70 mg/dL (0.1-1.2) 08/02/17 06:17 Direct Bilirubin < 0.2 mg/dL (0-0.2) 08/02/17 06:17 Indirect Bilirubin 0.2 mg/dL 07/31/17 12:09 AST 9 units/L (5-40) 08/02/17 06:17 ALT < 5 units/L (7-56) L 08/02/17 06:17 Alkaline Phosphatase 283 units/L (35-129) H 08/02/17 06:17 Total Protein 7.5 g/dL (6.3-8.2) 08/02/17 06:17 Albumin 3.5 g/dL (3.9-5) L 08/02/17 06:17 Albumin/Globulin Ratio 0.9 % 08/02/17 06:17 Urine Color Yellow (Yellow) 07/31/17 14:50 Urine Turbidity Clear (Clear) 07/31/17 14:50 Urine pH 5.0 (5.0-7.0) 07/31/17 14:50 Ur Specific [place] 1.028 (1.003-1.030) 07/31/17 14:50 Urine Protein 30 mg/dl mg/dL (Negative) 07/31/17 14:50 Urine Glucose (UA) Neg mg/dL (Negative) 07/31/17 14:50 Urine Ketones Neg mg/dL (Negative) 07/31/17 14:50 Urine Blood Neg (Negative) 07/31/17 14:50 Urine Nitrite Neg (Negative) 07/31/17 14:50 Urine Bilirubin Neg (Negative) 07/31/17 14:50 Urine Urobilinogen 4.0 mg/dL (<2.0) 07/31/17 14:50 Ur Leukocyte Esterase Neg (Negative) 07/31/17 14:50 Urine WBC (Auto) 4.0 /HPF (0.0-6.0) 07/31/17 14:50 Urine RBC (Auto) 1.0 /HPF (0.0-6.0) 07/31/17 14:50 U Epithel Cells (Auto) < 1.0 /HPF (0-13.0) 07/31/17 14:50 Urine Mucus 2+ /HPF 07/31/17 14:50
[2017-08-11] MEDS: ROXICODONE PO PRN (11:21)
[2017-08-11] MEDS: LOVENOX SUB-Q SCH (11:23)
[2017-08-11] MEDS: MAG-OX PO SCH (11:24)
[2017-08-11] MEDS: NORVASC PO SCH (11:24)
--- NOTE | 2017-08-11 20:38 | Progress Note ---
Assessment and Plan Patient sleeping at this time on O2.. No acute respiratory distress.O2 saturation 99% on 2 litres o2.. - Patient Problems (1) Metastatic lung cancer (metastasis from lung to other site) Current Visit: Yes Status: Acute Qualifiers: Laterality: left Qualified Code(s): C34.92 - Malignant neoplasm of unspecified part of left bronchus or lung Plan to address problem: Management as per oncology. (2) Pleural effusion Current Visit: Yes Status: Acute Plan to address problem: Ultrasound of chest reported no significant pleural effusion. (3) Acute respiratory failure Current Visit: No Status: Acute Qualifiers: Respiratory failure complication: hypoxia Qualified Code(s): J96.01 - Acute respiratory failure with hypoxia Plan to address problem: Improved. Patient is on room air. No acute respiratory distress. O2 saturation 98% on room air. Albuterol/atrovent aerosol treatments q 6 hours. Lovenox 40 mg S/C qd. Continue Decadron. Subjective Date of service: 08/11/17 Principal diagnosis: Acute Hypoxemic Resp Failure; Pneumonia; Metastatic Lung CA Interval history: Patient sleeping at this time on O2.. No acute respiratory distress.O2 saturation 99% on 2 litres o2.. Objective Vital Signs - 12hr 08/11/17 08/11/17 08/11/17 08:51 08:53 09:05 Temperature Pulse Rate Pulse Rate [ 118 H 116 H Anterior Bilateral Throughout] Respiratory Rate Respiratory 18 18 Rate [Anterior Bilateral Throughout] Blood Pressure O2 Sat by Pulse 98 Oximetry 08/11/17 08/11/17 08/11/17 11:38 15:00 15:15 Temperature 98.7 F Pulse Rate 116 H Pulse Rate [ 115 H 116 H Anterior Bilateral Throughout] Respiratory 22 Rate Respiratory 18 18 Rate [Anterior Bilateral Throughout] Blood Pressure 127/86 O2 Sat by Pulse 100 Oximetry 08/11/17 08/11/17 08/11/17 15:16 19:32 19:42 Temperature 97.7 F 98.0 F Pulse Rate 117 H 121 H 120 H Pulse Rate [ Anterior Bilateral Throughout] Respiratory 22 20 Rate Respiratory Rate [Anterior Bilateral Throughout] Blood Pressure 131/88 140/92 145/91 O2 Sat by Pulse 98 99 98 Oximetry 08/11/17 08/11/17 08/11/17 19:58 19:59 20:14 Temperature Pulse Rate Pulse Rate [ 115 H Anterior Bilateral Throughout] Respiratory Rate Respiratory 16 16 Rate [Anterior Bilateral Throughout] Blood Pressure O2 Sat by Pulse 99 Oximetry Constitutional: no acute distress, asleep Eyes: non-icteric ENT: oropharynx moist, other (mallamp[place] 2 oropharynx) Neck: supple, no lymphadenopathy, no JVD, other (no thyromegaly) Effort: mildly labored Ascultation: Left: diminished breath sounds (base), Bilateral: rhonchi (scant ) , other (prolonged exp phase) Percussion: Right: dull (base), Left: not dull (base) Cardiovascular: regular rate and rhythm, other (S1,S2, no murmurs, gallops or rubs) Gastrointestinal: normoactive bowel sounds, soft, non-tender, other (No palpable HSM) Integumentary: normal, other (Left chest wall scar) Extremities: no cyanosis, no edema, pulses normal, no ischemia or petechiae Neurologic: normal mental status, non-focal exam, pupils equal and round, CN II- XII normal, motor strength normal and, other (No HSM) Psychiatric: mood appropriate, affect normal CBC and BMP: 08/11/17 05:36 08/11/17 05:36 ABG, PT/INR, D-dimer: PT/INR, D-dimer PT 14.2 Sec. (12.2-14.9) 08/02/17 13:18 INR 1.05 (0.87-1.13) 08/02/17 13:18 Abnormal lab findings: Abnormal Labs 07/31/17 07/31/17 07/31/17 12:09 12:09 12:09 WBC Hgb 10.2 L Hct 31.6 L MCV 80 L MCH 26 L MCHC RDW 16.9 H Plt Count Lymph % (Auto) [place] % (Auto) Lymph # [place] # Seg Neutrophils % Seg Neuts % (Manual) Lymphocytes % (Manual) Monocytes % (Manual) Seg Neutrophils # Seg Neutrophils # Man Lymphocytes # (Manual) Monocytes # (Manual) Potassium 2.9 L* Chloride 96.2 L BUN Creatinine 0.4 L Glucose 104 H POC Glucose Magnesium ALT < 5 L Alkaline Phosphatase 279 H Albumin 3.3 L 08/01/17 08/02/17 08/02/17 10:42 06:17 06:17 WBC Hgb 10.8 L Hct 33.1 L MCV 80 L MCH 26 L MCHC RDW 17.1 H Plt Count Lymph % (Auto) 5.0 L [place] % (Auto) 8.7 H Lymph # 0.4 L [place] # Seg Neutrophils % 83.2 H Seg Neuts % (Manual) Lymphocytes % (Manual) Monocytes % (Manual) Seg Neutrophils # Seg Neutrophils # Man Lymphocytes # (Manual) Monocytes # (Manual) Potassium 3.1 L 3.2 L Chloride 91.0 L BUN 6 L Creatinine 0.2 L Glucose POC Glucose Magnesium 1.60 L 1.60 L ALT < 5 L Alkaline Phosphatase 283 H Albumin 3.5 L 08/07/17 08/07/17 08/08/17 05:29 05:29 05:21 WBC 12.6 H 11.5 H Hgb 10.8 L 10.7 L Hct 34.1 L 34.8 L MCV 79 L 79 L MCH 25 L 24 L MCHC 31 L RDW 16.9 H 17.1 H Plt Count 454 H 460 H Lymph % (Auto) [place] % (Auto) Lymph # [place] # Seg Neutrophils % Seg Neuts % (Manual) 92.0 H 93.0 H Lymphocytes % (Manual) 2.0 L 2 L Monocytes % (Manual) Seg Neutrophils # Seg Neutrophils # Man 11.6 H 10.7 H Lymphocytes # (Manual) 0.3 L 0.2 L Monocytes # (Manual) Potassium Chloride 96.1 L BUN Creatinine 0.3 L Glucose 116 H POC Glucose Magnesium ALT Alkaline Phosphatase Albumin 08/08/17 08/09/17 08/09/17 05:21 06:07 06:07 WBC 14.2 H Hgb 10.4 L Hct 32.8 L MCV 80 L MCH 25 L MCHC RDW 17.1 H Plt Count Lymph % (Auto) [place] % (Auto) Lymph # [place] # Seg Neutrophils % Seg Neuts % (Manual) 87.0 H Lymphocytes % (Manual) 5.0 L Monocytes % (Manual) Seg Neutrophils # Seg Neutrophils # Man 12.4 H Lymphocytes # (Manual) 0.7 L Monocytes # (Manual) 1.0 H Potassium Chloride BUN 21 H 22 H Creatinine 0.3 L 0.3 L Glucose 107 H 110 H POC Glucose Magnesium ALT Alkaline Phosphatase Albumin 08/09/17 08/10/17 08/10/17 23:02 06:31 06:31 WBC 15.0 H Hgb 10.2 L Hct 31.6 L MCV 80 L MCH 26 L MCHC RDW 17.3 H Plt Count Lymph % (Auto) [place] % (Auto) Lymph # [place] # Seg Neutrophils % Seg Neuts % (Manual) 90.0 H Lymphocytes % (Manual) 2.0 L Monocytes % (Manual) 8.0 H Seg Neutrophils # Seg Neutrophils # Man 13.5 H Lymphocytes # (Manual) 0.3 L Monocytes # (Manual) 1.2 H Potassium Chloride BUN 22 H Creatinine 0.3 L Glucose POC Glucose 108 H Magnesium ALT Alkaline Phosphatase Albumin 08/11/17 08/11/17 05:36 05:36 WBC 14.8 H Hgb 10.7 L Hct 34.7 L MCV 80 L MCH 25 L MCHC 31 L RDW 17.9 H Plt Count Lymph % (Auto) 1.2 L [place] % (Auto) 10.7 H Lymph # 0.2 L [place] # 1.6 H Seg Neutrophils % 87.9 H Seg Neuts % (Manual) Lymphocytes % (Manual) Monocytes % (Manual) Seg Neutrophils # 13.0 H Seg Neutrophils # Man Lymphocytes # (Manual) Monocytes # (Manual) Potassium Chloride BUN 23 H Creatinine 0.3 L Glucose POC Glucose Magnesium ALT Alkaline Phosphatase Albumin Chest x-ray: report reviewed, image reviewed
[2017-08-11] MEDS: MORPHINE IV PRN (23:40)
[2017-08-12] MEDS: DUONEB *Not for PRN Use IH SCH ×7 (01:26→21:08)
[2017-08-12] MEDS: ROXICODONE PO PRN ×2 (03:22→19:55)
[2017-08-12] MEDS: PERCOCET 5/325 PO PRN ×2 (03:23→19:54)
[2017-08-12] MEDS: DECADRON IV SCH ×4 (05:46→23:17)
[2017-08-12] MEDS: APRESOLINE IV PRN (05:55)
[2017-08-12] MEDS: MORPHINE IV PRN (08:41)
[2017-08-12] MEDS: FLEXERIL PO PRN (08:41)
--- NOTE | 2017-08-12 09:24 | Progress Note ---
Assessment and Plan Assessment and plan: --Metastatic lung cancer with bone mets and involvement of the vertebrae. XRT today --Acute respiratory failure with hypoxia; cont O2 support, case management attempting to arrange for home O2. --History of metastatic lung cancer; Continue supportive care, pulmonary and oncology following --Extensive bone metastases. As above --DVT prophylaxis; Lovenox --Full CODE STATUS - Patient Problems (1) Metastatic lung cancer (metastasis from lung to other site) Current Visit: Yes Status: Acute Qualifiers: Laterality: left Qualified Code(s): C34.92 - Malignant neoplasm of unspecified part of left bronchus or lung (2) Acute respiratory failure Current Visit: No Status: Acute Qualifiers: Respiratory failure complication: hypoxia Qualified Code(s): J96.01 - Acute respiratory failure with hypoxia History Interval history: no new issues overnight Hospitalist Physical - Constitutional Vitals: Temp Pulse Resp BP Pulse Ox 97.5 F L 113 H 18 167/106 97 08/12/17 08:26 08/12/17 08:26 08/12/17 08:26 08/12/17 08:26 08/12/17 08:26 General appearance: Present: no acute distress, well-nourished - EENT Eyes: Present: PERRL, EOM intact ENT: hearing intact, clear oral mucosa, dentition normal - Neck Neck: Present: supple, normal ROM - Respiratory Respiratory effort: normal Respiratory: bilateral: CTA - Cardiovascular Rhythm: regular Heart Sounds: Present: S1 & S2. Absent: gallop, rub - Extremities Extremities: no ischemia, No edema, Full ROM - Abdominal General gastrointestinal: soft, non-tender, non-distended, normal bowel sounds - Integumentary Integumentary: Present: clear, warm, dry - Neurologic Neurologic: CNII-XII intact, moves all extremities Results - Labs CBC & Chem 7: 08/11/17 05:36 08/11/17 05:36 Labs: Laboratory Last Values WBC 14.8 K/mm3 (4.5-11.0) H 08/11/17 05:36 RBC 4.36 M/mm3 (3.65-5.03) 08/11/17 05:36 Hgb 10.7 gm/dl (11.8-15.2) L 08/11/17 05:36 Hct 34.7 % (35.5-45.6) L 08/11/17 05:36 MCV 80 fl (84-94) L 08/11/17 05:36 MCH 25 pg (28-32) L 08/11/17 05:36 MCHC 31 % (32-34) L 08/11/17 05:36 RDW 17.9 % (13.2-15.2) H 08/11/17 05:36 Plt Count 419 K/mm3 (140-440) 08/11/17 05:36 Lymph % (Auto) 1.2 % (13.4-35.0) L 08/11/17 05:36 [place] % (Auto) 10.7 % (0.0-7.3) H 08/11/17 05:36 Eos % (Auto) 0.2 % (0.0-4.3) 08/11/17 05:36 Baso % (Auto) 0.0 % (0.0-1.8) 08/11/17 05:36 Lymph # 0.2 K/mm3 (1.2-5.4) L 08/11/17 05:36 [place] # 1.6 K/mm3 (0.0-0.8) H 08/11/17 05:36 Eos # 0.0 K/mm3 (0.0-0.4) 08/11/17 05:36 Baso # 0.0 K/mm3 (0.0-0.1) 08/11/17 05:36 Add Manual Diff Complete 08/10/17 06:31 Total Counted 100 08/10/17 06:31 Seg Neutrophils % 87.9 % (40.0-70.0) H 08/11/17 05:36 Seg Neuts % (Manual) 90.0 % (40.0-70.0) H 08/10/17 06:31 Band Neutrophils % 0 % 08/10/17 06:31 Lymphocytes % (Manual) 2.0 % (13.4-35.0) L 08/10/17 06:31 Reactive Lymphs % (Man) 0 % 08/10/17 06:31 Monocytes % (Manual) 8.0 % (0.0-7.3) H 08/10/17 06:31 Eosinophils % (Manual) 0 % (0.0-4.3) 08/10/17 06:31 Basophils % (Manual) 0 % (0.0-1.8) 08/10/17 06:31 Metamyelocytes % 0 % 08/10/17 06:31 Myelocytes % 0 % 08/10/17 06:31 Promyelocytes % 0 % 08/10/17 06:31 Blast Cells % 0 % 08/10/17 06:31 Nucleated RBC % Not Reportable 08/10/17 06:31 Seg Neutrophils # 13.0 K/mm3 (1.8-7.7) H 08/11/17 05:36 Seg Neutrophils # Man 13.5 K/mm3 (1.8-7.7) H 08/10/17 06:31 Band Neutrophils # 0.0 K/mm3 08/10/17 06:31 Lymphocytes # (Manual) 0.3 K/mm3 (1.2-5.4) L 08/10/17 06:31 Abs React Lymphs (Man) 0.0 K/mm3 08/10/17 06:31 Monocytes # (Manual) 1.2 K/mm3 (0.0-0.8) H 08/10/17 06:31 Eosinophils # (Manual) 0.0 K/mm3 (0.0-0.4) 08/10/17 06:31 Basophils # (Manual) 0.0 K/mm3 (0.0-0.1) 08/10/17 06:31 Metamyelocytes # 0.0 K/mm3 08/10/17 06:31 Myelocytes # 0.0 K/mm3 08/10/17 06:31 Promyelocytes # 0.0 K/mm3 08/10/17 06:31 Blast Cells # 0.0 K/mm3 08/10/17 06:31 WBC Morphology Not Reportable 08/10/17 06:31 Hypersegmented Neuts Not Reportable 08/10/17 06:31 Hyposegmented Neuts Not Reportable 08/10/17 06:31 Hypogranular Neuts Not Reportable 08/10/17 06:31 Smudge Cells Not Reportable 08/10/17 06:31 Toxic Granulation Not Reportable 08/10/17 06:31 Toxic Vacuolation Not Reportable 08/10/17 06:31 Dohle Bodies Not Reportable 08/10/17 06:31 Pelger-Huet Anomaly Not Reportable 08/10/17 06:31 Ayan Rods Not Reportable 08/10/17 06:31 Platelet Estimate Appears normal 08/10/17 06:31 Clumped Platelets Not Reportable 08/10/17 06:31 Plt Clumps, EDTA Not Reportable 08/10/17 06:31 Large Platelets Not Reportable 08/10/17 06:31 Giant Platelets Not Reportable 08/10/17 06:31 Platelet Satelliting Not Reportable 08/10/17 06:31 Plt Morphology Comment Not Reportable 08/10/17 06:31 RBC Morphology Not Reportable 08/10/17 06:31 Dimorphic RBCs Not Reportable 08/10/17 06:31 Polychromasia Not Reportable 08/10/17 06:31 Hypochromasia Not Reportable 08/10/17 06:31 Poikilocytosis Not Reportable 08/10/17 06:31 Anisocytosis 1+ 08/10/17 06:31 Microcytosis Not Reportable 08/10/17 06:31 Macrocytosis Not Reportable 08/10/17 06:31 Spherocytes Not Reportable 08/10/17 06:31 Pappenheimer Bodies Not Reportable 08/10/17 06:31 Sickle Cells Not Reportable 08/10/17 06:31 Target Cells Not Reportable 08/10/17 06:31 Tear Drop Cells Not Reportable 08/10/17 06:31 Ovalocytes 1+ 08/10/17 06:31 Helmet Cells Few 08/10/17 06:31 [place] Bodies Not Reportable 08/10/17 06:31 [place] Rings Not Reportable 08/10/17 06:31 [place] Cells Not Reportable 08/10/17 06:31 Bite Cells Not Reportable 08/10/17 06:31 Crenated Cell Not Reportable 08/10/17 06:31 Elliptocytes Rare 08/10/17 06:31 Acanthocytes (Spur) Not Reportable 08/10/17 06:31 Rouleaux Not Reportable 08/10/17 06:31 Hemoglobin C Crystals Not Reportable 08/10/17 06:31 Schistocytes Not Reportable 08/10/17 06:31 Malaria parasites Not Reportable 08/10/17 06:31 Shukri Bodies Not Reportable 08/10/17 06:31 Hem Pathologist Commnt No 08/10/17 06:31 PT 14.2 Sec. (12.2-14.9) 08/02/17 13:18 INR 1.05 (0.87-1.13) 08/02/17 13:18 APTT 30.7 Sec. (24.2-36.6) 08/02/17 13:18 Sodium 141 mmol/L (137-145) 08/11/17 05:36 Potassium 3.6 mmol/L (3.6-5.0) 08/11/17 05:36 Chloride 100.0 mmol/L (98-107) 08/11/17 05:36 Carbon Dioxide 24 mmol/L (22-30) 08/11/17 05:36 Anion Gap 21 mmol/L 08/11/17 05:36 BUN 23 mg/dL (9-20) H 08/11/17 05:36 Creatinine 0.3 mg/dL (0.8-1.5) L 08/11/17 05:36 Estimated GFR > 60 ml/min 08/11/17 05:36 BUN/Creatinine Ratio 77 % 08/11/17 05:36 Glucose 87 mg/dL (75-100) 08/11/17 05:36 POC Glucose 108 (70-105) H 08/09/17 23:02 Calcium 8.9 mg/dL (8.4-10.2) 08/11/17 05:36 Magnesium 1.60 mg/dL (1.7-2.3) L 08/02/17 06:17 Total Bilirubin 0.70 mg/dL (0.1-1.2) 08/02/17 06:17 Direct Bilirubin < 0.2 mg/dL (0-0.2) 08/02/17 06:17 Indirect Bilirubin 0.2 mg/dL 07/31/17 12:09 AST 9 units/L (5-40) 08/02/17 06:17 ALT < 5 units/L (7-56) L 08/02/17 06:17 Alkaline Phosphatase 283 units/L (35-129) H 08/02/17 06:17 Total Protein 7.5 g/dL (6.3-8.2) 08/02/17 06:17 Albumin 3.5 g/dL (3.9-5) L 08/02/17 06:17 Albumin/Globulin Ratio 0.9 % 08/02/17 06:17 Urine Color Yellow (Yellow) 07/31/17 14:50 Urine Turbidity Clear (Clear) 07/31/17 14:50 Urine pH 5.0 (5.0-7.0) 07/31/17 14:50 Ur Specific [place] 1.028 (1.003-1.030) 07/31/17 14:50 Urine Protein 30 mg/dl mg/dL (Negative) 07/31/17 14:50 Urine Glucose (UA) Neg mg/dL (Negative) 07/31/17 14:50 Urine Ketones Neg mg/dL (Negative) 07/31/17 14:50 Urine Blood Neg (Negative) 07/31/17 14:50 Urine Nitrite Neg (Negative) 07/31/17 14:50 Urine Bilirubin Neg (Negative) 07/31/17 14:50 Urine Urobilinogen 4.0 mg/dL (<2.0) 07/31/17 14:50 Ur Leukocyte Esterase Neg (Negative) 07/31/17 14:50 Urine WBC (Auto) 4.0 /HPF (0.0-6.0) 07/31/17 14:50 Urine RBC (Auto) 1.0 /HPF (0.0-6.0) 07/31/17 14:50 U Epithel Cells (Auto) < 1.0 /HPF (0-13.0) 07/31/17 14:50 Urine Mucus 2+ /HPF 07/31/17 14:50
[2017-08-12] MEDS: MAG-OX PO SCH (11:29)
[2017-08-12] MEDS: NORVASC PO SCH (11:29)
[2017-08-12] MEDS: LOVENOX SUB-Q SCH (11:30)
--- NOTE | 2017-08-12 14:54 | Hem/Onc Progress Note ---
Assessment and Plan - Patient Problems (1) Metastatic lung cancer (metastasis from lung to other site) Current Visit: Yes Status: Acute Qualifiers: Laterality: left Qualified Code(s): C34.92 - Malignant neoplasm of unspecified part of left bronchus or lung Plan to address problem: Plan is XRT. Then outpatient FU for treatment options. Stated importance of compliance . He agrees. Subjective Date of service: 08/12/17 Interval history: Pain is stable. No new complains. Objective - Constitutional Vitals: Last Vital Signs Temp 97.8 F 08/12/17 12:33 Pulse 125 H 08/12/17 12:33 Resp 18 08/12/17 12:33 BP 132/97 08/12/17 12:33 Pulse Ox 98 08/12/17 12:33 - Neck Neck: supple - Respiratory Respiratory effort: Positive: normal Respiratory: bilateral: CTA - Cardiovascular Rhythm: regular
[2017-08-13] MEDS: ROXICODONE PO PRN ×4 (02:19→23:07)
[2017-08-13] MEDS: PERCOCET 5/325 PO PRN ×4 (02:20→23:08)
[2017-08-13] MEDS: APRESOLINE IV PRN (04:35)
[2017-08-13] MEDS: DECADRON IV SCH ×4 (06:14→23:09)
[2017-08-13] MEDS: DUONEB *Not for PRN Use IH SCH ×4 (06:32→20:11)
[2017-08-13] MEDS: MAG-OX PO SCH (09:41)
[2017-08-13] MEDS: NORVASC PO SCH (09:42)
[2017-08-13] MEDS: LOVENOX SUB-Q SCH (10:00)
--- NOTE | 2017-08-13 10:01 | Progress Note ---
Assessment and Plan Assessment and plan: Metastatic lung cancer with bone mets and involvement of the vertebrae. For radiotherapy tomorrow Sunday. Acute respiratory failure with hypoxia; cont O2 support, case management attempting to arrange for home O2. History of metastatic lung cancer; Continue supportive care, pulmonary and oncology following Extensive bone metastases. As above DVT prophylaxis with Lovenox Full CODE STATUS History Interval history: Back pain, no shortness of breath currently, Hospitalist Physical - Physical exam Narrative exam: GEN APPEARANCE : Not in acute distress, lying in bed,obese HEENT: Normocephalic, Atraumatic NECK : supple, no JVD LUNGS: Decreased breath sounds bilaterally, no wheeze HEART: S1 and S2 regular, no murmurs, rubs or gallop ABD: Soft, non tender, non distended, normal bowel sounds EXT: No edema, no clubbing, no cyanosis, no cyanosis NEURO: Awake,alert, oriented x 3, no focal signs - Constitutional Vitals: Temp Pulse Resp BP Pulse Ox 97.8 F 96 H 18 145/98 96 08/13/17 07:47 08/13/17 09:49 08/13/17 09:49 08/13/17 07:47 08/13/17 07:53 General appearance: Present: no acute distress, well-nourished Results - Labs CBC & Chem 7: 08/11/17 05:36 08/11/17 05:36 Labs: Laboratory Last Values WBC 14.8 K/mm3 (4.5-11.0) H 08/11/17 05:36 RBC 4.36 M/mm3 (3.65-5.03) 08/11/17 05:36 Hgb 10.7 gm/dl (11.8-15.2) L 08/11/17 05:36 Hct 34.7 % (35.5-45.6) L 08/11/17 05:36 MCV 80 fl (84-94) L 08/11/17 05:36 MCH 25 pg (28-32) L 08/11/17 05:36 MCHC 31 % (32-34) L 08/11/17 05:36 RDW 17.9 % (13.2-15.2) H 08/11/17 05:36 Plt Count 419 K/mm3 (140-440) 08/11/17 05:36 Lymph % (Auto) 1.2 % (13.4-35.0) L 08/11/17 05:36 [place] % (Auto) 10.7 % (0.0-7.3) H 08/11/17 05:36 Eos % (Auto) 0.2 % (0.0-4.3) 08/11/17 05:36 Baso % (Auto) 0.0 % (0.0-1.8) 08/11/17 05:36 Lymph # 0.2 K/mm3 (1.2-5.4) L 08/11/17 05:36 [place] # 1.6 K/mm3 (0.0-0.8) H 08/11/17 05:36 Eos # 0.0 K/mm3 (0.0-0.4) 08/11/17 05:36 Baso # 0.0 K/mm3 (0.0-0.1) 08/11/17 05:36 Add Manual Diff Complete 08/10/17 06:31 Total Counted 100 08/10/17 06:31 Seg Neutrophils % 87.9 % (40.0-70.0) H 08/11/17 05:36 Seg Neuts % (Manual) 90.0 % (40.0-70.0) H 08/10/17 06:31 Band Neutrophils % 0 % 08/10/17 06:31 Lymphocytes % (Manual) 2.0 % (13.4-35.0) L 08/10/17 06:31 Reactive Lymphs % (Man) 0 % 08/10/17 06:31 Monocytes % (Manual) 8.0 % (0.0-7.3) H 08/10/17 06:31 Eosinophils % (Manual) 0 % (0.0-4.3) 08/10/17 06:31 Basophils % (Manual) 0 % (0.0-1.8) 08/10/17 06:31 Metamyelocytes % 0 % 08/10/17 06:31 Myelocytes % 0 % 08/10/17 06:31 Promyelocytes % 0 % 08/10/17 06:31 Blast Cells % 0 % 08/10/17 06:31 Nucleated RBC % Not Reportable 08/10/17 06:31 Seg Neutrophils # 13.0 K/mm3 (1.8-7.7) H 08/11/17 05:36 Seg Neutrophils # Man 13.5 K/mm3 (1.8-7.7) H 08/10/17 06:31 Band Neutrophils # 0.0 K/mm3 08/10/17 06:31 Lymphocytes # (Manual) 0.3 K/mm3 (1.2-5.4) L 08/10/17 06:31 Abs React Lymphs (Man) 0.0 K/mm3 08/10/17 06:31 Monocytes # (Manual) 1.2 K/mm3 (0.0-0.8) H 08/10/17 06:31 Eosinophils # (Manual) 0.0 K/mm3 (0.0-0.4) 08/10/17 06:31 Basophils # (Manual) 0.0 K/mm3 (0.0-0.1) 08/10/17 06:31 Metamyelocytes # 0.0 K/mm3 08/10/17 06:31 Myelocytes # 0.0 K/mm3 08/10/17 06:31 Promyelocytes # 0.0 K/mm3 08/10/17 06:31 Blast Cells # 0.0 K/mm3 08/10/17 06:31 WBC Morphology Not Reportable 08/10/17 06:31 Hypersegmented Neuts Not Reportable 08/10/17 06:31 Hyposegmented Neuts Not Reportable 08/10/17 06:31 Hypogranular Neuts Not Reportable 08/10/17 06:31 Smudge Cells Not Reportable 08/10/17 06:31 Toxic Granulation Not Reportable 08/10/17 06:31 Toxic Vacuolation Not Reportable 08/10/17 06:31 Dohle Bodies Not Reportable 08/10/17 06:31 Pelger-Huet Anomaly Not Reportable 08/10/17 06:31 Ayan Rods Not Reportable 08/10/17 06:31 Platelet Estimate Appears normal 08/10/17 06:31 Clumped Platelets Not Reportable 08/10/17 06:31 Plt Clumps, EDTA Not Reportable 08/10/17 06:31 Large Platelets Not Reportable 08/10/17 06:31 Giant Platelets Not Reportable 08/10/17 06:31 Platelet Satelliting Not Reportable 08/10/17 06:31 Plt Morphology Comment Not Reportable 08/10/17 06:31 RBC Morphology Not Reportable 08/10/17 06:31 Dimorphic RBCs Not Reportable 08/10/17 06:31 Polychromasia Not Reportable 08/10/17 06:31 Hypochromasia Not Reportable 08/10/17 06:31 Poikilocytosis Not Reportable 08/10/17 06:31 Anisocytosis 1+ 08/10/17 06:31 Microcytosis Not Reportable 08/10/17 06:31 Macrocytosis Not Reportable 08/10/17 06:31 Spherocytes Not Reportable 08/10/17 06:31 Pappenheimer Bodies Not Reportable 08/10/17 06:31 Sickle Cells Not Reportable 08/10/17 06:31 Target Cells Not Reportable 08/10/17 06:31 Tear Drop Cells Not Reportable 08/10/17 06:31 Ovalocytes 1+ 08/10/17 06:31 Helmet Cells Few 08/10/17 06:31 [place] Bodies Not Reportable 08/10/17 06:31 [place] Rings Not Reportable 08/10/17 06:31 [place] Cells Not Reportable 08/10/17 06:31 Bite Cells Not Reportable 08/10/17 06:31 Crenated Cell Not Reportable 08/10/17 06:31 Elliptocytes Rare 08/10/17 06:31 Acanthocytes (Spur) Not Reportable 08/10/17 06:31 Rouleaux Not Reportable 08/10/17 06:31 Hemoglobin C Crystals Not Reportable 08/10/17 06:31 Schistocytes Not Reportable 08/10/17 06:31 Malaria parasites Not Reportable 08/10/17 06:31 Shukri Bodies Not Reportable 08/10/17 06:31 Hem Pathologist Commnt No 08/10/17 06:31 PT 14.2 Sec. (12.2-14.9) 08/02/17 13:18 INR 1.05 (0.87-1.13) 08/02/17 13:18 APTT 30.7 Sec. (24.2-36.6) 08/02/17 13:18 Sodium 141 mmol/L (137-145) 08/11/17 05:36 Potassium 3.6 mmol/L (3.6-5.0) 08/11/17 05:36 Chloride 100.0 mmol/L (98-107) 08/11/17 05:36 Carbon Dioxide 24 mmol/L (22-30) 08/11/17 05:36 Anion Gap 21 mmol/L 08/11/17 05:36 BUN 23 mg/dL (9-20) H 08/11/17 05:36 Creatinine 0.3 mg/dL (0.8-1.5) L 08/11/17 05:36 Estimated GFR > 60 ml/min 08/11/17 05:36 BUN/Creatinine Ratio 77 % 08/11/17 05:36 Glucose 87 mg/dL (75-100) 08/11/17 05:36 POC Glucose 108 (70-105) H 08/09/17 23:02 Calcium 8.9 mg/dL (8.4-10.2) 08/11/17 05:36 Magnesium 1.60 mg/dL (1.7-2.3) L 08/02/17 06:17 Total Bilirubin 0.70 mg/dL (0.1-1.2) 08/02/17 06:17 Direct Bilirubin < 0.2 mg/dL (0-0.2) 08/02/17 06:17 Indirect Bilirubin 0.2 mg/dL 07/31/17 12:09 AST 9 units/L (5-40) 08/02/17 06:17 ALT < 5 units/L (7-56) L 08/02/17 06:17 Alkaline Phosphatase 283 units/L (35-129) H 08/02/17 06:17 Total Protein 7.5 g/dL (6.3-8.2) 08/02/17 06:17 Albumin 3.5 g/dL (3.9-5) L 08/02/17 06:17 Albumin/Globulin Ratio 0.9 % 08/02/17 06:17 Urine Color Yellow (Yellow) 07/31/17 14:50 Urine Turbidity Clear (Clear) 07/31/17 14:50 Urine pH 5.0 (5.0-7.0) 07/31/17 14:50 Ur Specific [place] 1.028 (1.003-1.030) 07/31/17 14:50 Urine Protein 30 mg/dl mg/dL (Negative) 07/31/17 14:50 Urine Glucose (UA) Neg mg/dL (Negative) 07/31/17 14:50 Urine Ketones Neg mg/dL (Negative) 07/31/17 14:50 Urine Blood Neg (Negative) 07/31/17 14:50 Urine Nitrite Neg (Negative) 07/31/17 14:50 Urine Bilirubin Neg (Negative) 07/31/17 14:50 Urine Urobilinogen 4.0 mg/dL (<2.0) 07/31/17 14:50 Ur Leukocyte Esterase Neg (Negative) 07/31/17 14:50 Urine WBC (Auto) 4.0 /HPF (0.0-6.0) 07/31/17 14:50 Urine RBC (Auto) 1.0 /HPF (0.0-6.0) 07/31/17 14:50 U Epithel Cells (Auto) < 1.0 /HPF (0-13.0) 07/31/17 14:50 Urine Mucus 2+ /HPF 07/31/17 14:50
--- NOTE | 2017-08-13 16:54 | Progress Note ---
Assessment and Plan Patient alert, awake. Resting on nsal O2. No acute respiratory distress.O2 saturation 96% on 2 litres o2.. - Patient Problems (1) Metastatic lung cancer (metastasis from lung to other site) Current Visit: Yes Status: Acute Qualifiers: Laterality: left Qualified Code(s): C34.92 - Malignant neoplasm of unspecified part of left bronchus or lung Plan to address problem: Management as per oncology. (2) Pleural effusion Current Visit: Yes Status: Acute Plan to address problem: Ultrasound of chest reported no significant pleural effusion. (3) Acute respiratory failure Current Visit: No Status: Acute Qualifiers: Respiratory failure complication: hypoxia Qualified Code(s): J96.01 - Acute respiratory failure with hypoxia Plan to address problem: Improved. Patientresting on 2 litres O2.. No acute respiratory distress. O2 saturation 98% on 2 litres O2.. Albuterol/atrovent aerosol treatments q 6 hours. Lovenox 40 mg S/C qd. Continue Decadron. Subjective Date of service: 08/13/17 Principal diagnosis: Acute Hypoxemic Resp Failure; Pneumonia; Metastatic Lung CA Interval history: Patient alert, awake. Resting on nsal O2. No acute respiratory distress.O2 saturation 96% on 2 litres o2.. Objective Vital Signs - 12hr 08/13/17 08/13/17 08/13/17 05:04 07:47 07:53 Temperature 97.8 F Pulse Rate 113 H Pulse Rate [ 105 H Anterior Right Throughout] Pulse Rate [ Apical] Respiratory 18 Rate Respiratory 18 Rate [Anterior Right Throughout] Blood Pressure 155/102 145/98 O2 Sat by Pulse 99 96 Oximetry 08/13/17 08/13/17 08/13/17 07:58 09:42 09:49 Temperature Pulse Rate Pulse Rate [ 108 H Anterior Right Throughout] Pulse Rate [ 96 H Apical] Respiratory 20 18 Rate Respiratory 18 Rate [Anterior Right Throughout] Blood Pressure O2 Sat by Pulse Oximetry 08/13/17 08/13/17 08/13/17 12:05 13:23 13:31 Temperature 98.0 F Pulse Rate Pulse Rate [ 100 H 102 H Anterior Right Throughout] Pulse Rate [ Apical] Respiratory 20 Rate Respiratory 18 18 Rate [Anterior Right Throughout] Blood Pressure 142/99 O2 Sat by Pulse Oximetry 08/13/17 14:58 Temperature Pulse Rate Pulse Rate [ Anterior Right Throughout] Pulse Rate [ Apical] Respiratory 20 Rate Respiratory Rate [Anterior Right Throughout] Blood Pressure O2 Sat by Pulse Oximetry Constitutional: no acute distress, alert Eyes: non-icteric ENT: oropharynx moist, other (mallampatti 2 oropharynx) Neck: supple, no lymphadenopathy, no JVD, other (no thyromegaly) Effort: mildly labored Ascultation: Left: diminished breath sounds (base), Bilateral: rhonchi (scant ) , other (prolonged exp phase) Percussion: Right: not dull, Left: dull (base) Cardiovascular: regular rate and rhythm, other (S1,S2, no murmurs, gallops or rubs) Gastrointestinal: normoactive bowel sounds, soft, non-tender, other (No palpable HSM) Integumentary: normal, other (Left chest wall scar) Extremities: no cyanosis, no edema, pulses normal, no ischemia or petechiae Neurologic: normal mental status, non-focal exam, pupils equal and round, CN II- XII normal, motor strength normal and, other (No HSM) Psychiatric: mood appropriate, affect normal CBC and BMP: 08/11/17 05:36 08/11/17 05:36 ABG, PT/INR, D-dimer: PT/INR, D-dimer PT 14.2 Sec. (12.2-14.9) 08/02/17 13:18 INR 1.05 (0.87-1.13) 08/02/17 13:18 Abnormal lab findings: Abnormal Labs 07/31/17 07/31/17 07/31/17 12:09 12:09 12:09 WBC Hgb 10.2 L Hct 31.6 L MCV 80 L MCH 26 L MCHC RDW 16.9 H Plt Count Lymph % (Auto) [place] % (Auto) Lymph # [place] # Seg Neutrophils % Seg Neuts % (Manual) Lymphocytes % (Manual) Monocytes % (Manual) Seg Neutrophils # Seg Neutrophils # Man Lymphocytes # (Manual) Monocytes # (Manual) Potassium 2.9 L* Chloride 96.2 L BUN Creatinine 0.4 L Glucose 104 H POC Glucose Magnesium ALT < 5 L Alkaline Phosphatase 279 H Albumin 3.3 L 08/01/17 08/02/17 08/02/17 10:42 06:17 06:17 WBC Hgb 10.8 L Hct 33.1 L MCV 80 L MCH 26 L MCHC RDW 17.1 H Plt Count Lymph % (Auto) 5.0 L [place] % (Auto) 8.7 H Lymph # 0.4 L [place] # Seg Neutrophils % 83.2 H Seg Neuts % (Manual) Lymphocytes % (Manual) Monocytes % (Manual) Seg Neutrophils # Seg Neutrophils # Man Lymphocytes # (Manual) Monocytes # (Manual) Potassium 3.1 L 3.2 L Chloride 91.0 L BUN 6 L Creatinine 0.2 L Glucose POC Glucose Magnesium 1.60 L 1.60 L ALT < 5 L Alkaline Phosphatase 283 H Albumin 3.5 L 08/07/17 08/07/17 08/08/17 05:29 05:29 05:21 WBC 12.6 H 11.5 H Hgb 10.8 L 10.7 L Hct 34.1 L 34.8 L MCV 79 L 79 L MCH 25 L 24 L MCHC 31 L RDW 16.9 H 17.1 H Plt Count 454 H 460 H Lymph % (Auto) [place] % (Auto) Lymph # [place] # Seg Neutrophils % Seg Neuts % (Manual) 92.0 H 93.0 H Lymphocytes % (Manual) 2.0 L 2 L Monocytes % (Manual) Seg Neutrophils # Seg Neutrophils # Man 11.6 H 10.7 H Lymphocytes # (Manual) 0.3 L 0.2 L Monocytes # (Manual) Potassium Chloride 96.1 L BUN Creatinine 0.3 L Glucose 116 H POC Glucose Magnesium ALT Alkaline Phosphatase Albumin 08/08/17 08/09/17 08/09/17 05:21 06:07 06:07 WBC 14.2 H Hgb 10.4 L Hct 32.8 L MCV 80 L MCH 25 L MCHC RDW 17.1 H Plt Count Lymph % (Auto) [place] % (Auto) Lymph # [place] # Seg Neutrophils % Seg Neuts % (Manual) 87.0 H Lymphocytes % (Manual) 5.0 L Monocytes % (Manual) Seg Neutrophils # Seg Neutrophils # Man 12.4 H Lymphocytes # (Manual) 0.7 L Monocytes # (Manual) 1.0 H Potassium Chloride BUN 21 H 22 H Creatinine 0.3 L 0.3 L Glucose 107 H 110 H POC Glucose Magnesium ALT Alkaline Phosphatase Albumin 08/09/17 08/10/17 08/10/17 23:02 06:31 06:31 WBC 15.0 H Hgb 10.2 L Hct 31.6 L MCV 80 L MCH 26 L MCHC RDW 17.3 H Plt Count Lymph % (Auto) [place] % (Auto) Lymph # [place] # Seg Neutrophils % Seg Neuts % (Manual) 90.0 H Lymphocytes % (Manual) 2.0 L Monocytes % (Manual) 8.0 H Seg Neutrophils # Seg Neutrophils # Man 13.5 H Lymphocytes # (Manual) 0.3 L Monocytes # (Manual) 1.2 H Potassium Chloride BUN 22 H Creatinine 0.3 L Glucose POC Glucose 108 H Magnesium ALT Alkaline Phosphatase Albumin 08/11/17 08/11/17 05:36 05:36 WBC 14.8 H Hgb 10.7 L Hct 34.7 L MCV 80 L MCH 25 L MCHC 31 L RDW 17.9 H Plt Count Lymph % (Auto) 1.2 L [place] % (Auto) 10.7 H Lymph # 0.2 L [place] # 1.6 H Seg Neutrophils % 87.9 H Seg Neuts % (Manual) Lymphocytes % (Manual) Monocytes % (Manual) Seg Neutrophils # 13.0 H Seg Neutrophils # Man Lymphocytes # (Manual) Monocytes # (Manual) Potassium Chloride BUN 23 H Creatinine 0.3 L Glucose POC Glucose Magnesium ALT Alkaline Phosphatase Albumin
[2017-08-14] MEDS: APRESOLINE IV PRN (04:49)
[2017-08-14] MEDS: FLEXERIL PO PRN (04:49)
[2017-08-14] MEDS: ROXICODONE PO PRN ×2 (06:29→12:04)
[2017-08-14] MEDS: PERCOCET 5/325 PO PRN ×2 (06:30→12:03)
[2017-08-14] MEDS: DECADRON IV SCH ×2 (06:31→11:04)
[2017-08-14] MEDS: DUONEB *Not for PRN Use IH SCH ×2 (08:00→16:30)
--- NOTE | 2017-08-14 10:21 | Discharge Summary ---
Providers - Providers Date of Admission: 07/31/17 15:31 Date of discharge: 08/14/17 Attending physician: EMILEE MONTES 08/01/17 20:08 Consult to Physician [CONS] Routine Consulting Provider: ELISEO FELDMAN Reason For Exam: metastatic lung cancer Place consult to:: Dr. Feldman Notified:: Yes Was contact made?: Yes If yes, spoke with:: Dr. Feldman Time called:: 12:29 08/01/17 20:32 Consult to Physician [CONS] Routine Consulting Provider: JAKY MINER Reason For Exam: metastatic lung Ca/pl effusion Place consult to:: alannah Notified:: yes Phone number called:: [phone] If yes, spoke with:: DR Liang Time called:: 09:30 08/09/17 12:50 Physical Therapy Evaluation and Treat [CONS] Routine Comment: Reason For Exam: inability to walk Primary care physician: EMILEE MARTINEZ Hospitalization Condition: Stable Disposition: DC- TO HOME OR SELFCARE Core Measure Documentation - Palliative Care Palliative Care/ Comfort Measures: Not Applicable Exam - Constitutional Vitals: Temp Pulse Resp BP Pulse Ox 97.2 F L 116 H 20 151/101 99 08/14/17 07:29 08/14/17 07:29 08/14/17 07:29 08/14/17 07:29 08/14/17 07:29 Plan Activity: advance as tolerated, no driving until cleared by PCP Diet: low fat, low cholesterol, low salt Additional Instructions: 1.Follow up with PCP in 1 week. 2.Follow up with Dr. SORTO, Oncologist in 2-3 days. 3.Continue radiotherapy as scheduled Follow up with: JAKY MINER MD [Staff Physician] - 7 Days JULIO C SANCHEZ MD [Staff Physician] - 7 Days EMILEE MARTINEZ MD [Primary Care Provider] - 3-5 Days Forms: AMA Form Prescriptions: amLODIPine [Norvasc] 10 mg PO DAILY #30 tab Cyclobenzaprine [Flexeril 10 MG TAB] 10 mg PO TID PRN #30 tablet PRN Reason: Muscle Spasm Metoprolol [Lopressor TAB] 25 mg PO BID #60 tablet Oxycodone HCl/Acetaminophen [Percocet 10/325 mg] 1 each PO Q6HR PRN #16 tablet PRN Reason: Pain
[2017-08-14] MEDS ORDERED: LOPRESSOR PO SCH (11:00)
[2017-08-14] MEDS: LOVENOX SUB-Q SCH (11:04)
[2017-08-14] MEDS: NORVASC PO SCH (11:04)
[2017-08-14] MEDS: MAG-OX PO SCH (11:05)
[2017-08-14] MEDS: MORPHINE IV PRN (15:13)
[2017-08-14 15:23] VITALS: BP 127/84
--- NOTE | 2017-08-14 16:07 | Hem/Onc Progress Note ---
Assessment and Plan - Patient Problems (1) Metastatic lung cancer (metastasis from lung to other site) Current Visit: Yes Status: Acute Qualifiers: Laterality: left Qualified Code(s): C34.92 - Malignant neoplasm of unspecified part of left bronchus or lung Plan to address problem: Plan is for XRT. Outpatient follow up encouraged. He agrees. Subjective Date of service: 08/14/17 Interval history: Pain is better. No new complains. Objective - Constitutional Vitals: Last Vital Signs Temp 98.0 F 08/14/17 15:17 Pulse 102 H 08/14/17 15:17 Resp 20 08/14/17 07:29 BP 127/84 08/14/17 15:17 Pulse Ox 98 08/14/17 15:17 - EENT ENT: hearing intact Lymph node exam: negative cervical - Neck Neck: supple - Respiratory Respiratory effort: Positive: normal Respiratory: bilateral: CTA - Cardiovascular Rhythm: regular Heart Sounds: Present: S1 & S2
== END 2017-08-14 17:25 | disposition home health service (06) | DRG 189 ==
LOC: ED 11:30 → 3A 15:31
PROVIDERS: ADMIT Internal Medicine; ATTEND Internal Medicine
PROC: 5A09357 Assistance with Respiratory Ventilation, Less than 24 Consecutive Hours, Continuous Positive Airway Pressure (ICD-10-PCS; principal; 2017-07-31)
DX: J96.01 Acute respiratory failure with hypoxia (principal); J90 Pleural effusion, not elsewhere classified; C79.51 Secondary malignant neoplasm of bone; J98.11 Atelectasis; C34.92 Malignant neoplasm of unspecified part of left bronchus or lung; I10 Essential (primary) hypertension; G89.29 Other chronic pain; M54.9 Dorsalgia, unspecified; E83.42 Hypomagnesemia; E87.6 Hypokalemia; Z79.899 Other long term (current) drug therapy; Z72.89 Other problems related to lifestyle
CPT/HCPCS: 36415; 70460; 71010; 71260; 72125; 72126; 72128; 72131; 76604; 80048; 80074; 81001; 82962; 83735; 84132; 85007; 85025; 85027; 85610; 85730; 93005; 93010; 94640; 94760; 96360; J0360; J1100; J1650; J2060; J2270; J3420; J7030; Q9967